=== PATIENT | female | born 1950 | race Caucasian/White ===

== ENCOUNTER 2023-10-06 18:02 | Emergency (ER) | payer MEDICARE, SELFPAY ==
[2023-10-06 18:04] VITALS: BP 155/61; PULSE 93; RESP 20; TEMP 36.6; O2SAT 98; BMI 19.0
[2023-10-06 19:00] LABS: COVID-19 Test Positive (Negative); IDNOW Serial# BCCEAD1C
[2023-10-06 19:49] VITALS: BP 142/54; PULSE 87; RESP 16; TEMP 36.7; O2SAT 99
[2023-10-06 19:58] LABS: MANUAL DIFF FLAG NO
[2023-10-06 20:00] LABS: Basophils Absolute Auto 0.1 X10*3/uL (0.0-0.2); Basophils Percent Auto 0.9 % (0-2); Eosinophils Percent Auto 0.1 % (0-4); Imm Gran Abs Auto 0.01 X10*3/uL (0.00-0.03); Imm Gran Pct Auto 0.1 % (0.0-0.4); Lymphocytes Absolute Auto 2.1 X10*3/uL (1.2-4.9); Lymphocytes Percent Auto 30.9 % (20-40); Mean Corpuscular HGB Conc 34.3 g/dl (31.0-35.0); Mean Corpuscular Hemoglobin 32.5 pg (27.0-33.0); Mean Corpuscular Volume 94.9 fL (80.0-98.0); Mean Platelet Volume 10.8 fL (9.4-12.3); Monocytes Absolute Auto 0.8 X10*3/uL (0.1-1.2); Monocytes Percent Auto 12.2 % (2-11); Neutrophils Absolute Auto 3.8 x10*3/uL (2.0-8.3); Neutrophils Percent Auto 55.8 % (45-73); Platelet Count 167 X10*3/uL (160-400); Red Blood Count 3.69 X10*6/uL (4.20-5.50); Red Cell Distribution Width 14.6 % (11.0-16.0); White Blood Count 6.9 X10*3/uL (4.8-10.8)
[2023-10-06 20:14] LABS: Alanine Aminotransferase 19 U/L (0-31); Albumin Level 3.7 g/dL (3.5-5.0); Alkaline Phosphatase 67 U/L (39-117); Anion Gap 17 (12-20); Aspartate Amino Transferase 29 U/L (5-31); Bilirubin Total 0.9 mg/dL (0.0-1.0); Blood Urea Nitrogen 40 mg/dL (9-16); Calcium 9.3 mg/dL (8.4-10.2); Carbon Dioxide 19 mmol/L (22-29); Chloride 109 mmol/L (96-108); Creatinine Clr Calc Pharmacy 37.2; Estimated Glomerular Filt Rate 46; Glucose Random 87 mg/dL (60-115); Potassium 4.2 mmol/L (3.3-5.1); Sodium 141 mmol/L (135-145); Total Protein 7.7 g/dL (6.5-8.0)
--- NOTE | 2023-10-06 21:13 | ED.GENADULT ---
HPI - General Adult General Chief complaint: General Medical Stated complaint: dementia/ multi Time Seen by Provider: 10/06/23 18:25 Source: family and other Mode of arrival: ambulatory History of Present Illness HPI narrative: This is a 73-year-old female with known at dementia, cared for by her who is currently being seen by case management for short-term rehab placement and is noted be COVID-19 positive. The staff in the overflow Section was concerned that patient would not be able to care for herself at home. Related Data Allergies Allergy/AdvReac Type Severity Reaction Status Date / Time No Known Allergies Allergy Unverified 07/04/20 15:24 [No Known Allergies*] Review of Systems Review of Systems: Pertinent positives and negatives as stated in HPI, this is not provided by the patient. [facility] Past Medical History Source: nursing notes reviewed Social History Social History Smoked in Last 30 Days: No Use of substances other than those prescribed or required for medical reasons: No Advance Directives: No Advance Directives Information Provided: No Physical Exam ED Vital Signs: Vital Signs - 24 hr 10/06/23 18:04 10/06/23 19:49 10/06/23 22:34 Temperature 98 F 98.1 F 97.5 F Pulse Rate 93 87 135 H Respiratory Rate 20 16 18 Blood Pressure 155/61 H 142/54 H 150/78 H Pulse Oximetry 98 99 100 Oxygen Delivery Method Room Air Room Air Room Air BMI result Body Mass Index 19.0 VITAL SIGNS: Reviewed. GENERAL: Well developed, well nourished, in no acute distress. HEAD: Normocephalic/atraumatic EYES: PERRLA, EOMI EARS: Ext canals without abnormality NOSE: Nares patent bilateral OROPHARYNX: no oral lesions noted, posterior pharynx clear NECK: Supple, no adenopathy LUNGS: Normal breath sounds. No adventitious sounds or accessory muscle use. SpO2<100> CARDIOVASCULAR: Regular rate and rhythm without noted murmurs ABDOMEN: Soft, non-tender, non-distended with bowel sounds. MUSCULOSKELETAL: No tenderness, deformities, or effusions noted on gross inspection. EXTREMITIES: No cyanosis, clubbing or edema. SKIN: Inspection of the skin reveals no rashes NEUROLOGIC: Alert and strength and sensation to light touch were grossly intact x 4. Medical Decision Making Medical Decision Making [facility] Narrative: 73-year-old female with no complaints, I reviewed all investigations and hematologic indices are negative for leukocytosis or left shift, there is no anemia or thrombocytopenia. Chemistry indices do not demonstrated MINDA your electrolytes/liver enzyme derangements. Patient is noted be COVID-19 positive. Patient has no urinary complaints. I discussed case with Case Management who informs me that previously this patient's partner had been slotted for short-term rehabilitation, however he is now going to be discharged home with home physical therapy but this will be completed tomorrow. There are no acute medical issues identified in this patient and she is otherwise placed in physician observation and will be discharged at the time that her significant other is discharged tomorrow. He is her primary care provider and is COVID-19 positive as well. Patient placed in physician observation because the patient needed more time for discharge with significant other. At the time observation was started the patient's vital signs were stable, patient is alert and oriented, neuro: Nonfocal, CV RRR, lungs clear Differential Diagnosis Differential Diagnoses: The differential diagnosis associated with the presentation includes Please see the discussion above Admission/Observation Consideration of admission/observation: Escalation of care including admission/observation considered Please see the discussion above Lab Data [facility] Lab Attestation statement: I reviewed the patient's lab results. Please see the discussion above 10/06/23 19:55 10/06/23 19:55 Labs: Lab Results 10/06/23 10/06/23 Range/Units 18:46 19:55 WBC 6.9 (4.8-10.8) X10*3/uL RBC 3.69 L (4.20-5.50) X10*6/uL Hgb 12.0 (12.0-16.0) g/dl Hct 35.0 L (37.0-47.0) % MCV 94.9 (80.0-98.0) fL MCH 32.5 (27.0-33.0) pg MCHC 34.3 (31.0-35.0) g/dl RDW 14.6 (11.0-16.0) % Plt Count 167 (160-400) X10*3/uL MPV 10.8 (9.4-12.3) fL Immature Gran % (Auto) 0.1 (0.0-0.4) % Neut % (Auto) 55.8 (45-73) % Lymph % (Auto) 30.9 (20-40) % [place] % (Auto) 12.2 H (2-11) % Eos % (Auto) 0.1 (0-4) % Baso % (Auto) 0.9 (0-2) % Lymph # (Auto) 2.1 (1.2-4.9) X10*3/uL [place] # (Auto) 0.8 (0.1-1.2) X10*3/uL Eos # (Auto) 0.0 (0.0-0.4) X10*3/uL Baso # (Auto) 0.1 (0.0-0.2) X10*3/uL Abs Immat Gran (auto) 0.01 (0.00-0.03) X10*3/uL Absolute Neuts (auto) 3.8 (2.0-8.3) x10*3/uL Absolute Nucleated RBC 0.000 (0.0-0.012) X10*3/uL Nucleated RBC % (auto) 0.0 (0.0-0.2) /100WBC Sodium 141 (135-145) mmol/L Potassium 4.2 (3.3-5.1) mmol/L Chloride 109 H (96-108) mmol/L Carbon Dioxide 19 L (22-29) mmol/L Anion Gap 17 (12-20) BUN 40 H (9-16) mg/dL Creatinine 1.15 (0.5-1.4) mg/dL Estim Creat Clear Calc 37.2 Estimated GFR 46 Random Glucose 87 (60-115) mg/dL Calcium 9.3 (8.4-10.2) mg/dL Total Bilirubin 0.9 (0.0-1.0) mg/dL AST 29 (5-31) U/L ALT 19 (0-31) U/L Alkaline Phosphatase 67 (39-117) U/L Total Protein 7.7 (6.5-8.0) g/dL Albumin 3.7 (3.5-5.0) g/dL COVID-19 (ELIAZAR) Positive A (Negative) COVID-19 Clin Com See Note Chronic Conditions Patient?s care impacted by: Other Dementia Discharge Plan Discharge Clinical Impression: Viral syndrome, Lab test positive for detection of COVID-19 virus Patient Disposition: Still a Patient
[2023-10-06 22:34] VITALS: BP 150/78; PULSE 135; RESP 18; TEMP 36.4; O2SAT 100
--- NOTE | 2023-10-06 23:12 | PC.NURSE ---
Patient is alert and oriented x2. Patient denies any pain. VSS. Patient COVID +, asymptomatic. Patient is incontinent of urine, purewick in place. 1:1 sitter and camera monitor at bedside. Patient is calm, cooperative. Patient resting comfortably, in no acute distress.
[2023-10-07 01:24] VITALS: BP 164/96; PULSE 87; RESP 16; TEMP 36.5; O2SAT 98
[2023-10-07 05:37] VITALS: BP 126/45; PULSE 77; RESP 16; TEMP 36.5; O2SAT 99
[2023-10-07 08:34] VITALS: BP 120/50; PULSE 71; RESP 20
--- NOTE | 2023-10-07 08:45 | PC.NURSE ---
assumed care of this pt at 0700. pt awake at the time of assuming care. pt not able to answer assessment questions. pt was fed breakfast by this check writer, she ate 50% of breakfast. pt pulled up in bed and warm blanket given. vss.
[2023-10-07 08:50] LABS: Appearance Urine Clear; Color Urine Yellow; Glucose Urine UA Negative (Negative); Leukocyte Esterase Urine Moderate (2+) (Negative); Nitrite Urine Negative (Negative); PH 5.5 (5.0-9.0); UMIC TRIGGER UACC YES; Urine Blood Negative (Negative); Urine Ketones 40 mg/dL (Negative); Urine Protein Trace mg/dL (Neg-Trace)
[2023-10-07 08:53] LABS: Bacteria Urine None Seen (None Seen); Hyaline Casts Urine 0-2 /LPF (0-2); RBC Urine 0-2 /HPF (0-2); Squamous Epithelial Cell Urine 0-2 /HPF (0-2); UACC Culture Trigger YES; WBC Urine 21-50 /HPF (0-5)
--- NOTE | 2023-10-07 12:56 | MHC.CM.ED ---
Received case management consult overnight. Patient was brought to the ER from ER overflow. Patient's sig other, Alejandro is an overflow patient. Patient has a history of dementia. Patient was not able to safely return home last night. Patient's sig other will return home with [facility] via BLS at 1pm. Patient will transport home via BLS at 130pm. Patient, Hernandez Allen RN and Delaney HYDE aware. Continue to monitor for d/c needs.
== END 2023-10-07 14:01 | disposition home or self-care (01) ==
PROVIDERS: Emergency Provider Student in an Organized Health Care Education/Training Program; PCP Internal Medicine
DX: U07.1 COVID-19 (principal); F03.90 Unspecified dementia, unspecified severity, without behavioral disturbance, psychotic disturbance, mood disturbance, and anxiety; Z79.899 Other long term (current) drug therapy
CPT/HCPCS: 36415; 80053; 81001; 85025; 87086; 87635; 99284

== ENCOUNTER 2023-10-07 14:40 | Emergency (ER) | payer MEDICARE, SELFPAY ==
[2023-10-07 15:18] VITALS: BMI 19.5
--- NOTE | 2023-10-07 15:46 | PC.NURSE ---
Patient returned to ED via ems after felt it was unsafe to leave patient and her significant other who was also being discharged from overflow at home. Per ems there was about 18 steps needed to get patient inside. Camera placed for safety. Patient yelling out occasionally, able to be re-directed for short periods of time
--- NOTE | 2023-10-07 16:19 | MHC.CM.ED ---
Patient was in ER and d/c'd home via [facility]. EMS didn't feel patient was safe at home with sig Alejandro garcia, because patient has advanced dementia and Alejandro is grossly deconditioned d/t Covid. Patient returned to ER from EMS crew. After discussing with Carter Romeor liaison, Cindy Johnson CM direct, patient and sig Alejandro garcia, patient will return home via [place] [facility] at 6pm. Patient, Gloria Allen RN and Delaney HYDE aware. Continue to monitor for d/c needs.
--- NOTE | 2023-10-07 16:46 | ED.GENADULT ---
HPI - General Adult General Chief complaint: General Medical Stated complaint: RETURN BY EMS FROM RECENT D/C TO HOME PER EMS Time Seen by Provider: 10/07/23 16:22 Source: patient, RN notes reviewed and old records reviewed Mode of arrival: EMS History of Present Illness HPI narrative: 73-year-old female presents for evaluation of of weakness. Patient is essentially bed-bound. She was just discharged from this facility a few hours ago. She is known to be COVID positive She lives with her significant other with her primary caregiver The patient and her primary caregiver collectively declined consideration for rehab as it was felt by staff and Case Management the patient and safe to be home by themselves Some degree of confusion but her primary caregiver has capacity to make decisions He understands that that may not be the safest at home especially while they are COVID positive but declines additional services including rehab placement and they do not meet criteria for admission The patient has no complaints and wishes to go home Related Data Home Medications Medication Instructions Recorded Confirmed clonazepam 0.5 mg tablet 0.5 mg PO DAILY 10/07/23 10/07/23 fluticasone propionate 50 2 spray intranasal DAILY 10/07/23 10/07/23 mcg/actuation nasal spray,suspension levothyroxine 75 mcg tablet 75 mcg PO DAILY 10/07/23 10/07/23 trihexyphenidyl 2 mg tablet 1 mg PO BID 10/07/23 10/07/23 Allergies Allergy/AdvReac Type Severity Reaction Status Date / Time No Known Allergies Allergy Unverified 07/04/20 15:24 [No Known Allergies*] Review of Systems Constitutional: Constitutional: Denies chills, Denies fever(s) and Reports weakness Cardiovascular: Cardiovascular: Denies chest pain and Denies dyspnea Respiratory: Respiratory: Denies cough and Denies dyspnea Gastrointestinal: Gastrointestinal: Denies abdominal pain, Denies nausea and Denies vomiting Musculoskeletal: Musculoskeletal: Denies back pain Integumentary/Breasts: Skin/Breast: Denies rash Neurologic: Reports weakness PMFSH Social History Social History Smoked in Last 30 Days: No Advance Directives: No Advance Directives Information Provided: No Physical Exam ED Vital Signs: BMI result Body Mass Index 19.5 Const General: comfortable, no acute distress, alert and awake HENMT Head: Yes normocephalic and Yes atraumatic Eyes Eyelids: Yes eyelids normal Conjunctivae: conjunctivae normal Sclerae: sclerae normal Corneas: corneas normal Pupils: Equal, round and reactive pupils present EOM: EOMs intact bilaterally Neck Neck: Yes full ROM Resp Effort & Inspection: normal respiratory effort, able to speak in complete sentences and not labored Cardio Rate: regular rate Rhythm: regular rhythm GI Inspection: No distended Palpation (GI): Soft to palpation, not firm, nontender, no guarding and not rigid Skin General skin exam: no rashes or lesions noted and elasticity normal Neuro Cranial nerves: Yes Equal, round and reactive pupils present and Yes Bilaterally intact EOM present Extrem Other: Moving all extremities well without any obvious deformities Medical Decision Making Medical Decision Making MDM Narrative: Patient is hemodynamically stable. I had a lengthy discussion with Case Management, the patient and her significant other. Case management filed for elder services due to unsafe living conditions and was able to establish visiting nurse assistance. However, the patient does not meet criteria for admission. Her caregiver and her declining rehab consideration. They both understand that they may not do well a Hohmann will likely require additional services but would still like to be discharged any ways. The patient's who is a primary caregiver will be brought back to their house 1st so that he will be there for the patient when she arrives Differential Diagnosis Differential Diagnoses: The differential diagnosis associated with the presentation includes Failure to thrive COVID-19 Weakness deconditioning Discharge Plan Discharge Clinical Impression: COVID-19, Adult failure to thrive Patient Disposition: Home, Self-Care Instructions: Failure to Thrive in Older Adults (ED), COVID-19 (Coronavirus Disease 2019) (ED) Additional Instructions: You and your primary caregiver declined consideration for rehab If you require any additional services are do not feel safe at home, call 911 to return to emergency department Prescriptions: No Action clonazepam 0.5 mg tablet 0.5 mg PO DAILY levothyroxine 75 mcg tablet 75 mcg PO DAILY trihexyphenidyl 2 mg tablet 1 mg PO BID fluticasone propionate 50 mcg/actuation spray,suspension 2 spray intranasal DAILY
[2023-10-07 18:00] VITALS: BP 134/66; PULSE 88; RESP 20; TEMP 37.1; O2SAT 97
== END 2023-10-07 18:17 | disposition home or self-care (01) ==
PROVIDERS: Emergency Provider Internal Medicine; PCP Internal Medicine
DX: U07.1 COVID-19 (principal); R62.7 Adult failure to thrive; Z79.899 Other long term (current) drug therapy
CPT/HCPCS: 99282; 99284

== ENCOUNTER 2023-10-08 12:26 | Inpatient (IN) | payer MEDICARE, SELFPAY ==
--- NOTE | ~2023-10-08 | XR_ITS ---
EXAMINATION: XR CHEST CLINICAL INFORMATION: AMS. COMPARISON: None available. TECHNIQUE: Frontal view of the chest was obtained. FINDINGS: The lungs are well-expanded with increased interstitial markings in both lungs without acute consolidation or pleural effusion. There are small left upper lobe 4 mm two nodules similar to previous study. Suspect additional smaller pulmonary nodules. XR/XR chest 1V IMPRESSION: 1. Increased interstitial markings in both lungs without acute consolidation or pleural effusion. 2. Small left upper lobe nodules. Recommend CT correlation.
--- NOTE | ~2023-10-08 | CT_ITS ---
EXAMINATION: CT brain and CT cervical spine without contrast. CLINICAL INDICATIONS: Fall. COMPARISON: CT brain without contrast 03/31/2017. TECHNIQUE: Axial 5 mm thin and reformatted 2 mm thin sagittal and coronal images of brain were obtained without contrast. Subsequently axial 3 mm thin and reformatted 2 mm thin sagittal and coronal images of cervical spine were obtained. DLP [id number]. This CT examination was performed using dose optimization technique as appropriate, variously including the following: Automated exposure control Adjustment of MA and/or KV according to patient size(this includes techniques or standardized protocols for targeted exams where dose is matched to indication/reason for exam; extremities or head. Use of iterative reconstruction techniques. Brain: There is no acute intra-axial, extra-axial bleed, masses or midline shift. There is no acute infarction in evolution. There is no edema or mass effect. The lateral ventricles are symmetrical in size and configuration without enlargement. The lima to white matter differentiation is maintained normal. Bone windows reveal no calvarial abnormality. There is mild mucoperiosteal thickening in bilateral sphenoid sinuses. Cervical spine: There is normal cervical lordosis. The vertebral heights are normal. There is minimal grade 1 retrolisthesis C3 over C4. Rest of the vertebral alignment is normal There is loss of C3-C4, C4-C5 disc height with mild ventral and posterior spondylosis. No aggressive lytic or sclerotic process seen. The craniovertebral junction and the C1-C2 alignment is normal. There is no visible acute fracture, dislocation or subluxation. The prevertebral and paravertebral soft tissues are normal. There is punctate calcification in the left lingular tonsils with minimal enlargement. No abnormal size neck lymph nodes or mass seen. The airways widely patent. There is mild left hematocele lung apices with apical pleural thickening.. CT/CT cervical spine wo IV con IMPRESSION: 1. No acute intracranial process seen. 2. There is no acute fracture, dislocation or subluxation in cervical spine. There are degenerative disc changes C3-C4 and C4-C5 disc levels with ventral and posterior spondylosis.
--- NOTE | 2023-10-08 12:38 | ED.GENADULT ---
HPI - General Adult General Chief complaint: Altered Mental Status Stated complaint: FOUND ON KITCHEN FLOOR, AMS Time Seen by Provider: 10/08/23 12:33 Source: patient, EMS, RN notes reviewed and old records reviewed Mode of arrival: EMS History of Present Illness HPI narrative: 73-year-old female with past medical history of dementia presenting to the ED via EMS for altered mental status since 21:00 last night reported by . Patient was seen and treated in our ED on 10/06 and 10/07, COVID-19 positive, short-term rehab placement recommended both times however patient was discharged with yesterday per his request/STR refusal. Has been his caregiver. History obtained from patient's reports her words making incomprehensible and she was yelling/not making any sense. Has been denies reported falls. Related Data Home Medications Medication Instructions Recorded Confirmed clonazepam 0.5 mg tablet 0.25 mg PO BID 10/07/23 10/08/23 fluticasone propionate 50 2 spray intranasal DAILY 10/07/23 10/08/23 mcg/actuation nasal spray,suspension levothyroxine 75 mcg tablet 75 mcg PO DAILY 10/07/23 10/08/23 trihexyphenidyl 2 mg tablet 1 mg PO BID 10/07/23 10/08/23 Allergies Allergy/AdvReac Type Severity Reaction Status Date / Time No Known Allergies Allergy Verified 10/08/23 12:40 [No Known Allergies*] Review of Systems Review of Systems: ROS limited due to patient's acute mental status/baseline dementia Yes all other systems are reviewed and are negative Constitutional: Constitutional: Reports as per [facility] Past Medical History Attestation statement: The following information was validated with the patient. Source: old records reviewed Social History Social History Unable to assess alcohol history related to: Unknown Use of substances other than those prescribed or required for medical reasons: Unable to respond Advance Directives: No Advance Directives Information Provided: No Physical Exam ED Vital Signs: Vital Signs - 24 hr 10/13/23 15:00 10/13/23 15:00 10/13/23 23:14 Temperature 98 F Pulse Rate 80 98 Respiratory Rate 16 14 Blood Pressure 124/57 L 146/68 H Pulse Oximetry 92 97 Oxygen Delivery Method Room Air Room Air 10/14/23 06:12 Temperature 97.4 F Pulse Rate 84 Respiratory Rate 16 Blood Pressure 140/66 H Pulse Oximetry 97 Oxygen Delivery Method Room Air BMI result Body Mass Index 20.5 Const Other: Yelling, not following commands General: no acute distress, alert and awake Limitations: altered mental status HENMT Head: Yes normal to inspection and Yes atraumatic Ears: hearing grossly normal bilaterally General nose exam: Normal external nose present Face and sinus: Yes normal facial exam Eyes General: appearance normal, both eyes and all related structures EOM: EOMs intact bilaterally Neck Other: C-collar in place Neck: Yes normal visual inspection and Yes no meningeal signs Resp Effort & Inspection: normal respiratory effort and no respiratory distress Auscultation: clear to auscultation bilaterally Cardio Rate: regular rate Heart sounds: S1 normal heart sound present and S2 normal heart sound present GI Inspection: Yes normal to inspection Palpation (GI): Soft to palpation, nontender, no guarding and not rigid General: Yes no CVA tenderness Back/Spine/Pelvis Other: No midline cervical/thoracic/lumbar spinous tenderness/step-off or deformity Back: no CVA tenderness Skin Rashes: no rashes Wounds: no wounds Neuro General: tone normal and no meningeal signs Course Course Course Narrative: -1351--no leukocytosis. H&H stable. AST mildly elevated. CPK mildly elevated to 764 > 1L IVF ordered. -Troponin 5.8 >> will obtain 3 hour repeat -UA negative. COVID-19 positive -1532--repeat troponin without significant rise, NC unlikely CT head/brain wo IV con/CT cervical spine wo IV con IMPRESSION: 1. No acute intracranial process seen. 2. There is no acute fracture, dislocation or subluxation in cervical spine. There are degenerative disc changes C3-C4 and C4-C5 disc levels with ventral and posterior spondylosis. > C-collar cleared. Case management aware and psych consult placed for capacity. -1625--ED care transferred to MARY ELLEN Srinivasan pending CXR, ammonia, psych consult for capacity and case management Reevaluation(s) Reevaluation #1: Patient was given to me through sign out, pending chest x-ray, ammonia, psych consult for capacity and Case Management dispo. Ammonia normal chest x-ray showing increased interstitial markings in both lungs without acute consolidation or pleural effusion. There is a small left upper lobe nodules. Patient is medically cleared, pending psych consult for capacity and Case Management. Patient moved to overflow unit pending their dispo. Time: 22:57 Reevaluation #2: Patient has case management involved. She is COVID positive. She has no hypoxia and is not requiring supplemental oxygen. Patient does not have capacity. She does not have a healthcare proxy. Guardianship is going to need to be pursued per Case Management. Elder Services is also involved with this patient. Will continue physician observation pending disposition Reevaluation #3: 10/10 0749-per nursing patient has been intermittently agitated. Did require IM injection last night as she refused to take any oral medications and did not respond to redirection. Nursing will attempt to give her her morning medications today. Vital stable. No additional complaints from nursing overnight. Will continue physician observation pending disposition 10/11/2023 - physician observation continued. I was notified by nursing staff that patient has been pulling at cords on ureña, refusing to take all medications. I evaluated patient, she is lying in bed, without any clothes on, yelling, telling me to leave the room, she is not redirectable, and has been refusing taking any of her medications. Given agitation and not being able to be redirected and pulling at medical equipment, Zyprexa 5 mg IM ordered. 10/13/2023 - Physician observation continues. Patient being followed by Case management. Additional Reevaluation(s): Patient to remain in observation. Uneventful night. Meds reconciled. Will continue to monitor. Spoke to Marylin Arreguin who tells me we have started guardianship on this patient she will be here for 4-6 weeks at least, she has been COVID positive x2 while here, however asymptomatic, advocating for hospital admission and for the hospitalist to take over this patient she discussed this with administration who agrees. Physical deconditioning. Will speak to hospitalist Medications Administered Generic Name Dose Route Start Last Admin Trade Name Freq PRN Reason Stop Dose Admin Clonazepam 0.25 mg 10/09/23 21:00 10/14/23 09:31 Clonazepam 0.5 Mg Tablet PO 0.25 mg BID LATISHA Administration Fluticasone Propionate 2 spray 10/10/23 09:00 10/14/23 10:19 Fluticasone Propionate Nasal 16 Gm [place] NOSTRIL-B Not Given DAILY LATISHA Levothyroxine Sodium 75 mcg 10/10/23 06:30 10/14/23 09:31 Levothyroxine Sodium 75 Mcg Tablet PO 75 mcg DAILY@0630 LATISHA Administration Trihexyphenidyl HCl 1 mg 10/09/23 21:00 10/14/23 11:34 Trihexyphenidyl Hcl 2 Mg Tablet PO 1 mg BID LATISHA Administration Discontinued Medications Generic Name Dose Route Start Last Admin Trade Name Robbie PRN Reason Stop Dose Admin Clonazepam 0.25 mg 10/13/23 00:47 10/13/23 01:11 Clonazepam 0.125 Mg Tab.Rapdis PO 10/13/23 00:48 0.25 mg ONCE ONE Administration Diphenhydramine HCl 50 mg 10/11/23 08:15 10/11/23 08:25 Diphenhydramine Hcl 50 Mg/Ml Vial IM 10/11/23 08:16 50 mg ONCE ONE Administration Diphenhydramine HCl 25 mg 10/11/23 22:44 10/11/23 23:00 Diphenhydramine Hcl 50 Mg/Ml Vial IM 10/11/23 22:45 Not Given ONCE ONE Diphenhydramine HCl 50 mg 10/13/23 02:55 10/13/23 03:06 Diphenhydramine Hcl 50 Mg/Ml Vial IM 10/13/23 02:56 50 mg ONCE ONE Administration Sodium Chloride 1,000 mls @ 999 mls/hr 10/08/23 14:00 10/08/23 16:11 Ns IV 10/08/23 15:00 Infused .Q1H1M LATISHA Infusion Olanzapine 5 mg 10/08/23 15:40 10/08/23 16:17 Olanzapine 10 Mg Vial IM 10/08/23 15:41 5 mg STAT STA Administration Olanzapine 5 mg 10/09/23 16:05 10/09/23 16:11 Olanzapine 10 Mg Vial IM 10/09/23 16:06 5 mg STAT STA Administration Olanzapine 5 mg 10/09/23 19:20 10/09/23 19:31 Olanzapine 10 Mg Vial IM 10/09/23 19:21 5 mg STAT STA Administration Olanzapine 5 mg 10/10/23 08:28 10/10/23 08:41 Olanzapine 10 Mg Vial IM 10/10/23 08:29 5 mg STAT STA Administration Olanzapine 5 mg 10/11/23 07:34 10/11/23 07:43 Olanzapine 10 Mg Vial IM 10/11/23 07:35 5 mg STAT STA Administration Olanzapine 5 mg 10/11/23 22:44 10/11/23 23:00 Olanzapine 10 Mg Vial IM 10/11/23 22:45 Not Given ONCE ONE Quetiapine Fumarate 25 mg 10/09/23 15:26 10/09/23 16:06 Quetiapine Fumarate 25 Mg Tablet PO 10/09/23 15:27 Not Given ONCE ONE Medical Decision Making Medical Decision Making MDM Narrative: 73-year-old female with past medical history of dementia presenting to the ED via EMS for altered mental status since 21:00 last night reported by . On exam vital signs stable, NAD, yelling, unable to follow commands, baseline dementia/altered mental status. No evidence of trauma. History limited and provided by . Concern for metabolic/infectious etiology vs ICH vs dementia/failure to thrive Plan: EKG, labs, UA, CXR, head/C-spine CT, case management consult Please refer to course for remaining clinical decision making, interpretation of labs/imaging results, and discussions with consultants and/or family members. Differential Diagnosis Differential Diagnoses: The differential diagnosis associated with the presentation includes As above Admission/Observation Consideration of admission/observation: Escalation of care including admission/observation considered Lab Data [facility] Lab Attestation statement: I reviewed the patient's lab results. 10/08/23 13:05 10/08/23 13:05 Labs: Lab Results 10/08/23 10/08/23 10/08/23 Range/Units 13:05 13:15 15:03 WBC 9.4 (4.8-10.8) X10*3/uL RBC 3.78 L (4.20-5.50) X10*6/uL Hgb 12.3 (12.0-16.0) g/dl Hct 35.9 L (37.0-47.0) % MCV 95.0 (80.0-98.0) fL MCH 32.5 (27.0-33.0) pg MCHC 34.3 (31.0-35.0) g/dl RDW 14.7 (11.0-16.0) % Plt Count 187 (160-400) X10*3/uL MPV 11.4 (9.4-12.3) fL Immature Gran % (Auto) 0.3 (0.0-0.4) % Neut % (Auto) 71.7 (45-73) % Lymph % (Auto) 18.3 L (20-40) % [place] % (Auto) 9.4 (2-11) % Eos % (Auto) 0.0 (0-4) % Baso % (Auto) 0.3 (0-2) % Lymph # (Auto) 1.7 (1.2-4.9) X10*3/uL [place] # (Auto) 0.9 (0.1-1.2) X10*3/uL Eos # (Auto) 0.0 (0.0-0.4) X10*3/uL Baso # (Auto) 0.0 (0.0-0.2) X10*3/uL Abs Immat Gran (auto) 0.03 (0.00-0.03) X10*3/uL Absolute Neuts (auto) 6.8 (2.0-8.3) x10*3/uL Absolute Nucleated RBC 0.000 (0.0-0.012) X10*3/uL Nucleated RBC % (auto) 0.0 (0.0-0.2) /100WBC PT 12.4 (11.1-13.3) SEC INR 1.0 (0.9-1.1) Sodium 145 (135-145) mmol/L Potassium 4.9 (3.3-5.1) mmol/L Chloride 111 H (96-108) mmol/L Carbon Dioxide 22 (22-29) mmol/L Anion Gap 17 (12-20) BUN 40 H (9-16) mg/dL Creatinine 1.22 (0.5-1.4) mg/dL Estim Creat Clear Calc 36.7 Estimated GFR 43 POC Glucose (60-115) mg/dL Random Glucose 97 (60-115) mg/dL Calcium 9.9 D (8.4-10.2) mg/dL Magnesium 2.5 (1.6-2.6) mg/dL Total Bilirubin 1.0 (0.0-1.0) mg/dL Direct Bilirubin 0.5 (0.0-0.5) mg/dL AST 53 H (5-31) U/L ALT 29 (0-31) U/L Alkaline Phosphatase 70 (39-117) U/L Ammonia (13-55) umol/L Total Creatine Kinase 764 H (26-140) U/L Troponin I High Sens 5.8 7.1 (<3.5-17.0) ng/L Total Protein 8.0 (6.5-8.0) g/dL Albumin 3.8 (3.5-5.0) g/dL Urine Color Dark Yellow Urine Appearance Clear Urine pH 5.0 (5.0-9.0) Ur Specific [place] 1.025 (1.005-1.025) Urine Protein 30 (1+) H (Neg-Trace) mg/dL Urine Glucose (UA) Negative (Negative) mg/dL Urine Ketones 15 (Negative) mg/dL Urine Blood Trace H (Negative) Urine Nitrite Negative (Negative) Ur Leukocyte Esterase Negative (Negative) Urine RBC 0-2 (0-2) /HPF Urine WBC 0-5 (0-5) /HPF Ur Squamous Epith Cells 0-2 (0-2) /HPF Urine Bacteria None Seen (None Seen) Hyaline Casts 11-20 (0-2) /LPF Granular Casts Present COVID-19 (ELIAZAR) Positive A (Negative) COVID-19 Clin Com See Note Influenza Type A (LORAINE) Negative (Negative) Influenza Type B (LORAINE) Negative (Negative) Influenza A & B Note See Note 10/08/23 10/12/23 Range/Units 16:17 17:34 WBC (4.8-10.8) X10*3/uL RBC (4.20-5.50) X10*6/uL Hgb (12.0-16.0) g/dl Hct (37.0-47.0) % MCV (80.0-98.0) fL MCH (27.0-33.0) pg MCHC (31.0-35.0) g/dl RDW (11.0-16.0) % Plt Count (160-400) X10*3/uL MPV (9.4-12.3) fL Immature Gran % (Auto) (0.0-0.4) % Neut % (Auto) (45-73) % Lymph % (Auto) (20-40) % [place] % (Auto) (2-11) % Eos % (Auto) (0-4) % Baso % (Auto) (0-2) % Lymph # (Auto) (1.2-4.9) X10*3/uL [place] # (Auto) (0.1-1.2) X10*3/uL Eos # (Auto) (0.0-0.4) X10*3/uL Baso # (Auto) (0.0-0.2) X10*3/uL Abs Immat Gran (auto) (0.00-0.03) X10*3/uL Absolute Neuts (auto) (2.0-8.3) x10*3/uL Absolute Nucleated RBC (0.0-0.012) X10*3/uL Nucleated RBC % (auto) (0.0-0.2) /100WBC PT (11.1-13.3) SEC INR (0.9-1.1) Sodium (135-145) mmol/L Potassium (3.3-5.1) mmol/L Chloride (96-108) mmol/L Carbon Dioxide (22-29) mmol/L Anion Gap (12-20) BUN (9-16) mg/dL Creatinine (0.5-1.4) mg/dL Estim Creat Clear Calc Estimated GFR POC Glucose 89 (60-115) mg/dL Random Glucose (60-115) mg/dL Calcium (8.4-10.2) mg/dL Magnesium (1.6-2.6) mg/dL Total Bilirubin (0.0-1.0) mg/dL Direct Bilirubin (0.0-0.5) mg/dL AST (5-31) U/L ALT (0-31) U/L Alkaline Phosphatase (39-117) U/L Ammonia 31 (13-55) umol/L Total Creatine Kinase (26-140) U/L Troponin I High Sens (<3.5-17.0) ng/L Total Protein (6.5-8.0) g/dL Albumin (3.5-5.0) g/dL Urine Color Urine Appearance Urine pH (5.0-9.0) Ur Specific [place] (1.005-1.025) Urine Protein (Neg-Trace) mg/dL Urine Glucose (UA) (Negative) mg/dL Urine Ketones (Negative) mg/dL Urine Blood (Negative) Urine Nitrite (Negative) Ur Leukocyte Esterase (Negative) Urine RBC (0-2) /HPF Urine WBC (0-5) /HPF Ur Squamous Epith Cells (0-2) /HPF Urine Bacteria (None Seen) Hyaline Casts (0-2) /LPF Granular Casts COVID-19 (ELIAZAR) (Negative) COVID-19 Clin Com Influenza Type A (LORAINE) (Negative) Influenza Type B (LORAINE) (Negative) Influenza A & B Note Independent Interpretation I performed an independent interpretation of an: EKG, Plain X-Ray and CT Scan Radiology Impression Discussion of test interpretation with radiology: I have reviewed the radiologist's reading. Independent Historian Clinical information obtained from an independent historian. History obtained from or confirmed by: Spouse and EMS External Record Review External record reviewed: Inpatient record, Office record, Outpatient record, Prior outpatient labs, Prior outpatient radiology, Primary care record and Outside ED record Tests considered The following testing was considered but not selected: As above Chronic Conditions Patient?s care impacted by: Other Social Determinants Patient?s care significantly limited by Social Determinants of Health including: Problems related to primary support group and Other Social Determinant of Health Discharge Plan Discharge Clinical Impression: Dementia, Adult failure to thrive, COVID-19 Patient Disposition: Still a Patient Prescriptions: No Action clonazepam 0.5 mg tablet 0.25 mg PO BID levothyroxine 75 mcg tablet 75 mcg PO DAILY trihexyphenidyl 2 mg tablet 1 mg PO BID fluticasone propionate 50 mcg/actuation spray,suspension 2 spray intranasal DAILY
[2023-10-08 12:40] VITALS: BP 102/56; PULSE 83; O2SAT 99; BMI 20.5
--- NOTE | 2023-10-08 12:47 | ECG_ITS ---
Test Reason : AMS Blood Pressure : / mmHG Vent. Rate : 073 BPM Atrial Rate : 073 BPM P-R Int : 132 ms QRS Dur : 070 ms QT Int : 378 ms P-R-T Axes : 082 033 -08 degrees QTc Int : 416 ms Poor data quality Normal sinus rhythm Nonspecific ST abnormality Abnormal ECG No previous ECGs available Please repeat EKG Referred By: Verena Carver Electronically Signed By:MASAH VARMA MD
--- NOTE | 2023-10-08 12:53 | PC.NURSE ---
pt biba d/t AMS since 0900. per pt's - pt saw herself lower her to the ground. -headstrike, -loc, ?thinners. c-collar in place. pt unable to answer questions appropriately but follows commands w/o difficulty. no sob/wob noted. respirations even/unlabored. call lee placed within reach.
[2023-10-08 12:59] VITALS: BP 151/60; PULSE 83; RESP 18; O2SAT 93
--- NOTE | 2023-10-08 13:00 | PC.NURSE ---
straight catheterization performed. urine obtained and sent to lab. 100ml of dark yellow urine noted/documented in I&O section. pt tolerated well.
--- NOTE | 2023-10-08 13:05 | PC.NURSE ---
20gIV placed in the left AC - labs drawn and sent to lab. access wrapped for safety precautions at this time.
[2023-10-08 13:22] LABS: MANUAL DIFF FLAG NO
[2023-10-08 13:25] LABS: Basophils Percent Auto 0.3 % (0-2); Hematocrit 35.9 % (37.0-47.0); Hemoglobin 12.3 g/dl (12.0-16.0); Imm Gran Abs Auto 0.03 X10*3/uL (0.00-0.03); Imm Gran Pct Auto 0.3 % (0.0-0.4); Lymphocytes Absolute Auto 1.7 X10*3/uL (1.2-4.9); Lymphocytes Percent Auto 18.3 % (20-40); Mean Corpuscular HGB Conc 34.3 g/dl (31.0-35.0); Mean Corpuscular Hemoglobin 32.5 pg (27.0-33.0); Mean Platelet Volume 11.4 fL (9.4-12.3); Monocytes Absolute Auto 0.9 X10*3/uL (0.1-1.2); Monocytes Percent Auto 9.4 % (2-11); Neutrophils Absolute Auto 6.8 x10*3/uL (2.0-8.3); Neutrophils Percent Auto 71.7 % (45-73); Platelet Count 187 X10*3/uL (160-400); Red Blood Count 3.78 X10*6/uL (4.20-5.50); Red Cell Distribution Width 14.7 % (11.0-16.0); White Blood Count 9.4 X10*3/uL (4.8-10.8)
[2023-10-08 13:25] LABS: Appearance Urine Clear; Color Urine Dark Yellow; Glucose Urine UA Negative (Negative); Leukocyte Esterase Urine Negative (Negative); Nitrite Urine Negative (Negative); Specific Gravity - Urine 1.025 (1.005-1.025); UMIC TRIGGER UACC YES; Urine Blood Trace (Negative); Urine Ketones 15 mg/dL (Negative); Urine Protein 30 (1+) mg/dL (Neg-Trace)
[2023-10-08 13:39] LABS: Alanine Aminotransferase 29 U/L (0-31); Albumin Level 3.8 g/dL (3.5-5.0); Alkaline Phosphatase 70 U/L (39-117); Anion Gap 17 (12-20); Aspartate Amino Transferase 53 U/L (5-31); Bilirubin Direct 0.5 mg/dL (0.0-0.5); Blood Urea Nitrogen 40 mg/dL (9-16); Calcium 9.9 mg/dL (8.4-10.2); Carbon Dioxide 22 mmol/L (22-29); Chloride 111 mmol/L (96-108); Creatinine Clr Calc Pharmacy 36.7; Estimated Glomerular Filt Rate 43; Glucose Random 97 mg/dL (60-115); Magnesium 2.5 mg/dL (1.6-2.6); Potassium 4.9 mmol/L (3.3-5.1); Sodium 145 mmol/L (135-145)
[2023-10-08 13:40] LABS: IDNOW Serial# BCCEAD1C
--- NOTE | 2023-10-08 13:40 | PC.NURSE ---
pt to xray at this time.
[2023-10-08 13:41] LABS: COVID-19 Test Positive (Negative); Prothrombin Time 12.4 SEC (11.1-13.3)
[2023-10-08 13:43] LABS: Bacteria Urine None Seen (None Seen); Granular Casts Urine Present; RBC Urine 0-2 /HPF (0-2); Squamous Epithelial Cell Urine 0-2 /HPF (0-2); WBC Urine 0-5 /HPF (0-5)
[2023-10-08 13:46] LABS: IDNOW Serial# 9DB6401D; Influenza A Negative (Negative); Influenza B2 Negative (Negative); Troponin-I High Sensitivity 5.8 ng/L (<3.5-17.0)
--- NOTE | 2023-10-08 14:07 | MHC.CM.ED ---
Addendum entered by Jannet Sen 10/08/23 14:17: Received telephone call from Cindy Johnson CM director. Per Supervisor [employer] Testing Cindy Catalan, patient does not hava a HCP. If patient is found not to have capacity, a guardianship will need to be pursued. Original Note: Received telephone call from [facility] of [facility] services. They are requesting a capacity eval for patient. They also don't feel patient's sig other, Alejandro Johnson, is making decisions that benefit her. Work up is currently pending. Continue to monitor for d/c needs.
[2023-10-08] MEDS: 0.9 % Sodium Chloride 1,000 ML 999 ML IV (14:15)
--- NOTE | 2023-10-08 14:16 | PC.NURSE ---
IV fluids administered per provider order. pt resting comfortably in no apparent distress. respirations remain even/unlabored. call lee placed within reach.
[2023-10-08 14:26] VITALS: BP 106/60; PULSE 77; RESP 12; O2SAT 99
[2023-10-08 15:30] LABS: Troponin-I High Sensitivity 7.1 ng/L (<3.5-17.0)
[2023-10-08 16:00] VITALS: BP 149/64; PULSE 80; RESP 16; TEMP 36.5; O2SAT 100
[2023-10-08] MEDS: OLANZapine 10 MG VIAL 5 MG IM (16:17)
[2023-10-08 16:33] LABS: Ammonia 31 umol/L (13-55)
--- NOTE | 2023-10-08 16:37 | PHA.MEDREC ---
Pharmacy Consult ? Medication Reconciliation Pharmacy has completed the medication reconciliation. Patient with AMS. Med rec done by claim history. David SchmittD
[2023-10-08 18:00] VITALS: RESP 22; O2SAT 98
--- NOTE | 2023-10-08 18:32 | PC.NURSE ---
Patient transferred from main ed to overflow, patient continually yelling hot car hot car unable to be re-directed for even short periods of time.
[2023-10-08 20:22] VITALS: BP 122/62; PULSE 88; RESP 18; TEMP 36.3; O2SAT 97
--- NOTE | 2023-10-09 03:10 | PC.NURSE ---
resting comf,denies pain,.no resp distress,purewick in place
[2023-10-09 06:00] VITALS: BP 118/60; PULSE 62; RESP 18; TEMP 37.1; O2SAT 95
--- NOTE | 2023-10-09 10:51 | PC.NURSE ---
Addendum entered by Vijaya Puentes RN 10/09/23 17:47: pt refused lunch and dinner, agitation increasing throughout day, refusing clothing and blankets. Provider notified of increased agitation and new orders for medication administered per MAR with good effect. incontinence care provided x2. safety precautions remain in place Original Note: report received from overnight RN, pt restless in bed speaking/yelling nonsensical things to self. Refusing breakfast, not redirectable at this time, not following commands. bed alarm on, call lee within reach, safety precautions remain in place. Airborne precautions in place. respirations even and unlabored.
--- NOTE | 2023-10-09 15:51 | MHC.CM.ED ---
Pt yelling out almost continuously-talking out loud, angry at times and not able to be redirected. Review of notes mentions [facility] involvement, no HCP and +COVID. Pt's significant other is holding in the ED as well w/COVID. Pt does not see to have other family involved. Pt will likely need guardianship for LTC placement. This will occur after the holiday and pt will hold in the ED as she does not have a safe disposition at this time. ED CM to follow.
[2023-10-09] MEDS: OLANZapine 10 MG VIAL 5 MG IM ×2 (16:11→19:31)
--- NOTE | 2023-10-09 16:19 | MHC.EDTECH ---
This CCT went to round on patient. Purewick had become dislodged due to agitation and restlessness. Patient was cleaned by RN and this CCT and assisted into a brief. Patient repositioned, offered food. Patient declined food and RN performed oral care. Lights dimmed, noise minimized, call lee within reach, safety measures maintained.
[2023-10-09 19:18] VITALS: BP 168/87; PULSE 84; RESP 20; TEMP 36.5
--- NOTE | 2023-10-09 20:13 | PC.NURSE ---
Addendum entered by Ana Fontana RN 10/09/23 20:39: Noted good effect of Zyprexa, patient is napping at this time. Original Note: Patient very agitated, confused, yelling out very unpleasant islam words. Resistant to care, wants to lay naked. Zyprexa 5 mg IM one time dose ordered and given. Will continue to monitor.
--- NOTE | 2023-10-09 21:35 | PC.NURSE ---
this rn assumed care of pt. pt transported from Overflow to the main ED. pt refusing to wear hospital gown at this time, throwing blankets on the floor. pt appears to be confused. bed alarm on at this time.
--- NOTE | 2023-10-10 01:30 | PC.NURSE ---
pt covered with blanket at this time. pt sleeping, respirations even and unlabored.
--- NOTE | 2023-10-10 05:03 | PC.NURSE ---
pt sleeping at this time, no acute distress noted. respirations even and unlabored.
[2023-10-10 05:43] VITALS: BP 137/46; PULSE 74; RESP 16; TEMP 36.7; O2SAT 96
--- NOTE | 2023-10-10 06:45 | PC.NURSE ---
pt changed and repositioned in bed at this time.
[2023-10-10] MEDS: OLANZapine 10 MG VIAL 5 MG IM (08:41)
--- NOTE | 2023-10-10 08:42 | PC.NURSE ---
PT INCREASINGLY AGITATED, MAKING REPETITIVE STATEMENTS, PULLING OFF EVERYTHING IN HER BED THIS MORNING, AND ATTEMPTING EXIT THE BED HEAD FIRST. PRECAUTIONS IN PLACE, CAMERA PLACED AT BEDSIDE. MUCOUS MEMBRANES DRY. ATTEMPTS MADE TO DELIVER ORAL INTAKE, PT KNOCKING & SPITTING EVERYTHING OUT OF THE WAY. MULTIPLE UNSUCCESSFUL ATTEMPTS MADE TO REDUCE STIMULI & CALM THIS PT. MARKET DEVELOPMENT ANALYST AWARE, MEDICATED PER EMR & SITTER at bedside.
--- NOTE | 2023-10-10 09:10 | PC.NURSE ---
pt refusing medication administration at this time. pt laying naked in position making repetitive statements. pt agitated/restless but remains cooperative at this time. pt has not attempted to get out of bed at this time. camera placed/1:1 sitter bedside at this time for safety precautions.
--- NOTE | 2023-10-10 09:58 | PC.NURSE ---
pt continues to refuse medication administration at this time. will reattempt. pt continues to be restless/confused. making statements that are incoherent. camera placed. 1:1 sitter present. respirations even/unlabored. call lee placed within reach.
--- NOTE | 2023-10-10 11:03 | PC.NURSE ---
pt currently sleeping at this time. resting comfortably in no apparent distress. respirations remain even and unlabored. camera in place. 1:1 sitter bedside. call lee placed within reach.
--- NOTE | 2023-10-10 11:23 | MHC.CM.ED ---
Pt continues to board in the ED awaiting psych eval for capacity and possible need for guardianship. No HCP on file Pt is confused, agitated yelling out at times and not able to participate in CM questions/discussions. It is expected psych eval will occur on 10/12. Pt to board in the ED until d/c plan can be safely made. ED CM to follow.
--- NOTE | 2023-10-10 14:39 | PC.NURSE ---
pt continues to sleep/rest in no apparent distress at this time. respirations remain even and unlabored. bed alarm turned on. camera in place for safety precautions. call lee placed within reach.
--- NOTE | 2023-10-10 17:03 | PC.NURSE ---
pt now awake. pt still refusing vitals to be taken/medication to be administered/to put clothing on. pt continues to lay naked in bed - seemingly restless and making repetitive statements. pt continues to rip clothing and blankets off of her body. pt calm at this time. respirations remain even and unlabored. camera in place. bed alarm turned on for safety precautions. call lee placed within reach.
--- NOTE | 2023-10-10 21:00 | PC.NURSE ---
This ticket writer assumed care of this Pt at 1900. Pt confused, agitated, stating covid 19, get out, get out , not answering questions, swatting at staff when attempting to get vitals. Pt refusing to take PO meds, refusing any PO intake. Pt refusing any blanket/ gown, laying naked in hospital bed. Camera in place for safety.
--- NOTE | 2023-10-10 21:29 | P.CNPS_ITS ---
History of Present Illness Date of Service: 10/10/2023 Chief Complaint: FOUND ON KITCHEN FLOOR, AMS Reason for Consult: capacity HPI Narrative: per 10/08 ED Note: 73-year-old female with past medical history of dementia presenting to the ED via EMS for altered mental status since 21:00 last night reported by . Patient was seen and treated in our ED on 10/06 and 10/07, COVID-19 positive, short-term rehab placement recommended both times however patient was discharged with yesterday per his request/STR refusal. Has been his caregiver. History obtained from patient's reports her words making incomprehensible and she was yelling/not making any sense. Has been denies reported falls. Reevaluation #1: Patient was given to me through sign out, pending chest x-ray, ammonia, psych consult for capacity and Case Management dispo. Ammonia normal chest x-ray showing increased interstitial markings in both lungs without acute consolidation or pleural effusion. There is a small left upper lobe nodules. Patient is medically cleared, pending psych consult for capacity and Case Management. Patient moved to overflow unit pending their dispo. Time: 22:57 Reevaluation #2: Patient has case management involved. She is COVID positive. She has no hypoxia and is not requiring supplemental oxygen. Patient does not have capacity. She does not have a healthcare proxy. Guardianship is going to need to be pursued per Case Management. Elder Services is also involved with this patient. Will continue physician observation pending disposition Reevaluation #3: 10/10 0749-per nursing patient has been intermittently agitated. Did require IM injection last night as she refused to take any oral medications and did not respond to redirection. Nursing will attempt to give her her morning medications today. Vital stable. No additional complaints from nursing overnight. Will continue physician observation pending disposition on attempted interview by MD, pt was awake and responded to MD's questions by holding her blanket over her face with one hand and repeatedly making a warding off or waving away gesture with the other hand. this gesture lessened when MD was quiet and was more active any time MD spoke. she was unable to engage in an interview even after MD explained that the stakes of the interview was her autonomy. Diagnostics Vital Signs (24Hr): Vital Signs - 24 hr 10/10/23 05:43 Temperature 98.0 F Pulse Rate 74 Respiratory Rate 16 Blood Pressure 137/46 L Pulse Oximetry 96 Oxygen Delivery Method Room Air BMI result Body Mass Index 20.5 Labs 10/08/23 13:05 10/08/23 13:05 Imaging Radiology Impressions: ITS Impressions Cervical Spine CT 10/08/23 14:22 IMPRESSION: 1. No acute intracranial process seen. 2. There is no acute fracture, dislocation or subluxation in cervical spine. There are degenerative disc changes C3-C4 and C4-C5 disc levels with ventral and posterior spondylosis. Head CT 10/08/23 14:22 IMPRESSION: 1. No acute intracranial process seen. 2. There is no acute fracture, dislocation or subluxation in cervical spine. There are degenerative disc changes C3-C4 and C4-C5 disc levels with ventral and posterior spondylosis. Chest X-Ray 10/08/23 16:00 IMPRESSION: 1. Increased interstitial markings in both lungs without acute consolidation or pleural effusion. 2. Small left upper lobe nodules. Recommend CT correlation. Mental Status Exam Mental Status Exam Narrative: as discussed in HPI Medications Medications Current Medications Clonazepam (Clonazepam 0.5 Mg Tablet) 0.25 mg PO BID [facility] Last Admin: 10/10/23 17:02 Dose: Not Given Fluticasone Propionate (Fluticasone Propionate Nasal 16 Gm [place]) 2 spray NOSTRIL-B DAILY [facility] Last Admin: 10/10/23 17:02 Dose: Not Given Levothyroxine Sodium (Levothyroxine Sodium 75 Mcg Tablet) 75 mcg PO DAILY@0630 [facility] Last Admin: 10/10/23 06:45 Dose: Not Given Trihexyphenidyl HCl (Trihexyphenidyl Hcl 2 Mg Tablet) 1 mg PO BID [facility] Last Admin: 10/10/23 17:02 Dose: Not Given Allergies Allergies Allergy/AdvReac Type Severity Reaction Status Date / Time No Known Allergies Allergy Verified 10/08/23 12:40 [No Known Allergies*] Assessment & Plan Assessment & Plan (1) Dementia: Status: Acute Code(s): F03.90 - Unspecified dementia, unspecified severity, without behavioral disturbance, psychotic disturbance, mood disturbance, and anxiety (2) COVID-19: Status: Acute Code(s): U07.1 - COVID-19 (3) Delirium: Status: Acute Code(s): R41.0 - Disorientation, unspecified Plan pt with dementia at baseline now with COVID and a sharp change in mental status indicating very likely delirium. she is entirely unable to engage in an interview to discuss her medical care and clearly lacks any medical decision-making capacity. surrogate decision-maker should be invoked. Total time managing care of this patient today __35__ minutes.
[2023-10-10 23:32] VITALS: BP 124/80; PULSE 99; RESP 20; TEMP 37.2; O2SAT 96
--- NOTE | 2023-10-10 23:39 | PC.NURSE ---
Two staff assist with incontinent care, able to get set of vitals. Pt continues to yell and refuse PO intake.
--- NOTE | 2023-10-11 00:19 | PC.NURSE ---
call received from camera room, pt grabbed cords out of wall. cords removed. pt in bed, restless and undressed at this time
--- NOTE | 2023-10-11 01:08 | PC.NURSE ---
pt continues to pull things off the wall, items removed from grasp. bed pulled away from the wall. lights dimmed
--- NOTE | 2023-10-11 04:04 | PC.NURSE ---
pt resting quietly on/off throughout the night. eyes closed at this time, breathing even and unlabored. no apparent distress noted
[2023-10-11 06:31] VITALS: BP 132/84; PULSE 94; RESP 18; TEMP 36.4; O2SAT 95
--- NOTE | 2023-10-11 06:50 | MHC.EDTECH ---
PT cleaned and changed into dry hospital attire. PT given pillow. PT frequently takes clothes, pillow and blankets off body but was left with clothes on this time. PT's bed pulled away from the wall due to PT pulling at cords and other items. Note to staff, don't walk into the bed.
--- NOTE | 2023-10-11 07:18 | PC.NURSE ---
pt laying in bed agitated and naked, resistant to covering up, not trying to get out of bed but had been grabbing at all med equipment and bed is pulled away from the wall, refused her meds and refused all food or drink, I'm not having any of that right now
[2023-10-11] MEDS: OLANZapine 10 MG VIAL 5 MG IM (07:43)
[2023-10-11] MEDS: diphenhydrAMINE HCL 50 MG/ML VIAL IM (08:25)
--- NOTE | 2023-10-11 10:02 | PC.NURSE ---
assumed care of patient. Patient is lying in bed without clothes on, refusing blankets and hospital gown. pt is confused and disoriented, agitated. Pt is unable to answer questions, and rambles to themselves. Camera monitor on for patient safety.
--- NOTE | 2023-10-11 11:48 | PC.NURSE ---
pt in bed, with blanket on. camera in place. pt is fidgeting with blanket.
--- NOTE | 2023-10-11 12:29 | PC.NURSE ---
warm blanket given, pt accepting of blanket. pillow offered but declined. pt resting, fidgeting with blanket.
[2023-10-11 14:00] VITALS: RESP 12
--- NOTE | 2023-10-11 21:18 | PC.NURSE ---
Debora care and complete bed change done. Bladder scan 271 Pt changed into clean hospital gown. Purewick placed. Pt positioned in bed for comfort. Pt refusing meds at this time. Plan of care ongoing.
--- NOTE | 2023-10-11 21:53 | PC.NURSE ---
Pt refusing meds at this time. Pt removed purewick, gown, and blankets. Plan of care ongoing.
--- NOTE | 2023-10-12 02:21 | PC.NURSE ---
Pt continues to remove blankets and gown and throws them on floor. Plan of care ongoing.
--- NOTE | 2023-10-12 02:33 | MHC.EDTECH ---
patient continues to be agressive with care. patient has taken of clothing and blankets.
--- NOTE | 2023-10-12 04:09 | PC.NURSE ---
Pt sitting quietly in the bed but becomes agitated when anyone walks into the room. Pt states get out Pt removing sheets from the bed, will not keep bedding or gown in place. Plan of care ongoing.
--- NOTE | 2023-10-12 05:25 | MHC.EDTECH ---
vital signs unable to be taken as patient is extremely combative. Patient incontinenet of urine. patient cleaned and fresh linens applied.
--- NOTE | 2023-10-12 05:48 | PC.NURSE ---
Pt still refusing everything. Pt removed seizure pads off of bed. Plan of care ongoing.
--- NOTE | 2023-10-12 07:45 | PC.NURSE ---
this rn resumed care of pt at this time. pt refusing vitals to be taken/medication to be administered at this time. pt lying naked in position in bed holding on to purewick stating it is her baby blue. pt refuses to release purewick. pt keeps yelling the word fire! and making incoherent repetitive statements. pt not allowing this rn or tech to change her into hospital attire/apply fresh blankets. repeatedly stating for us to leave her alone. pt c/o no pain. no sob/wob noted. respirations even and unlabored. call lee placed within reach.
--- NOTE | 2023-10-12 09:14 | MHC.CM.ED ---
Patient remains in ER. Per Dr Wagoner, patient lacks capacity to make her own decisions. Marylin Faria CM manager behavior aware. Guardianship process will be started. Continue to monitor for d/c needs.
--- NOTE | 2023-10-12 09:49 | MHC.EDTECH ---
patient refusing to keep any type of clothing on and refusing to allow tech to do vital signs.
--- NOTE | 2023-10-12 10:07 | PC.NURSE ---
pt continues to refuse medication administration/vitals to be taken at this time. bed sheet tied/applied to bed rails to promote pt coverage/dignity since pt refuses application of blanket/hospital gown. RN Marylin Mccormick bedside w/ pt and pt's roommate () at this time.
--- NOTE | 2023-10-12 13:57 | PC.NURSE ---
pt resting in bed quietly, no distress at the moment,sheet covering patient
[2023-10-12 14:00] VITALS: BP 134/59; PULSE 100; RESP 12; O2SAT 99
--- NOTE | 2023-10-12 14:23 | PC.NURSE ---
pt continues to refuse any food or water stating I don't think it is a good idea I do not want to be on fire pt asked about any burning or abdomen pain but patient was unale to elaborate. PA notified of continued refusal of food or drink. Psych met with patient recently - per PA we will wait for psych consult note before determining plan
[2023-10-12 17:37] VITALS: RESP 16
[2023-10-12 17:38] LABS: Glucose, Whole Blood 89 mg/dL (60-115)
--- NOTE | 2023-10-12 17:42 | PC.NURSE ---
bed linens changed. pt very agitataed and confused during bed change. pt was incontinent or urine. [employer] MANAGER covering patient given report on patients refusal of PO intake. POC 89 - [employer] MANAGER aware
--- NOTE | 2023-10-12 18:06 | MHC.EDTECH ---
THIS PCT ASSUMED CARE OF PT AT 1700 ,PT WAS INCONTINENT OF URINE ,BED BATH GIVEN ,PT VERY COMBATIVE ,RESP TAKEN UNABLE TO GET FULL SETS OF VITALS ,RN AWARE .BLOOD SUGAR CHECK .
--- NOTE | 2023-10-12 19:00 | MHC.EDTECH ---
THIS PCT WAS TRYING TO FEED PATIENT DINNER ,PT WAS HITTING THE FORK AWAY FROM MY HAND ,THIS PCT TRIED TO GIVE PATIENT FLUIDS ,AND PATIENT KEPT ON HITTING MY HAND ,LORA PATRICIA AWARE .
--- NOTE | 2023-10-12 20:39 | MHC.CM.ED ---
CM met with patient and her partner, who is also a patient in bed 15. Per psych, patient does not have capacity to make medical decisions. Pt told me she was in the hospital, thinks she will from the covid (which she calls Naz) and complains about her lips being dry. Patient tells CM she isn't eating because she doesn't want to. Explained to patient that it is very important that she takes her meds, and at least drinks some fluids. Patient was calm and cooperative, not aggressive. Patient kept rubbing her lips with both her hands. CM was able to convince patient to drink a glass of water with a straw. Refused pudding, apple sauce or ice cream. RN and provider aware of po intake.
--- NOTE | 2023-10-12 21:00 | PC.NURSE ---
XIAO Lemus was able to convince patient to drink some water. This RN was also able to have pt drink some water. Multiple attempts were made to get pt to take her two medications without success.
--- NOTE | 2023-10-12 22:22 | PC.NURSE ---
pt sleeping. camera in place.
[2023-10-12 22:51] VITALS: BP 136/61; PULSE 96; RESP 16; TEMP 36.4; O2SAT 97
--- NOTE | 2023-10-12 22:52 | MHC.EDTECH ---
Pt in much better mood ,vitals taken ,Pt drank 60 ml water ,refused other foods and fluids ,pt is dry and reposition in bed ,Patient comfortable ,no apparent distress ,Call lee within Pt reach .
--- NOTE | 2023-10-13 00:44 | MHC.EDTECH ---
PATIENT REMOVE GOWN AND BLANKETS AND THREW IT ON FLOOR ,THIS PCT PUT CLEAN GOWN ON PATIENT ,AND MORE BLANKETS ,BED ALARM ON BED AND TELLE SITTER DARRIUSA IN ROOM .
--- NOTE | 2023-10-13 01:11 | PC.NURSE ---
pt confused, medicated per mar, pt was able to take several sips of water, pt confused and unable to redirect
--- NOTE | 2023-10-13 01:24 | MHC.EDTECH ---
Patient was incontinent of urine ,care given and bedding change .
--- NOTE | 2023-10-13 01:30 | PC.NURSE ---
pt incontinent of urine, holding on to the blue part of pure wick refusing to left go after multiple attempts, was able to crush medication and place in water, pt continue to take sips of water. CC Caire aware of pt having blue part of pure wick in her hand.
--- NOTE | 2023-10-13 01:33 | PC.NURSE ---
no labored respiration and no sign of distress at this time.
--- NOTE | 2023-10-13 01:38 | MHC.EDTECH ---
Patient continue to be reposition and boosted up in bed ,Patient continue refusing to give up Pure wick ,thats in her hand ,Patient states its her blue baby . LORA Galloway and cloth pattern maker Karen aware .
[2023-10-13] MEDS: diphenhydrAMINE HCL 50 MG/ML VIAL IM (03:06)
--- NOTE | 2023-10-13 03:13 | PC.NURSE ---
pt medicated per Mar.
--- NOTE | 2023-10-13 03:22 | PC.NURSE ---
Pt refusing vitals at this time.
[2023-10-13 06:34] VITALS: BP 137/68; PULSE 79; RESP 15; TEMP 36.6; O2SAT 95
--- NOTE | 2023-10-13 06:45 | PC.NURSE ---
Pt repositioned, pt clean dry, pt remain confused and refusing po medications, pt did take several sips of water.
[2023-10-13 07:27] VITALS: BP 143/54; PULSE 102; RESP 20; TEMP 36.5; O2SAT 97
[2023-10-13] MEDS: Levothyroxine Sodium 75 MCG TABLET PO (09:32)
[2023-10-13] MEDS: clonazePAM 0.5 MG TABLET 0.25 MG PO (09:36)
--- NOTE | 2023-10-13 09:43 | PC.NURSE ---
Addendum entered by Jackie Webb RN 10/13/23 09:51: pt refused to eat breakfast. sts she's not hungry and she will eat tonight . Original Note: assumed care of pt at 0700. pt calm and cooperative. pleasantly confused. sitter camera at bedside for pt safety. pt medicated per dec. pt able to take medications crushed and mixed in water. pt tolerated well. pt now resting quietly in bed. report given to LORA Clark.
--- NOTE | 2023-10-13 10:20 | PC.NURSE ---
med req'd fluticasone
[2023-10-13] MEDS: Trihexyphenidyl HCL 2 MG TABLET 1 MG PO (10:36)
[2023-10-13] MEDS: Fluticasone Propionate Nasal 16 GM SPRAY 2 SPRAY NOSTRIL-B (10:37)
--- NOTE | 2023-10-13 11:09 | PC.NURSE ---
pt boosted, repositioned, given other pad and placed pillow under plastics process hand. another pillow given for neck. new blankets.
--- NOTE | 2023-10-13 11:50 | MHC.CM.ED ---
Patient remains in ER. Patient's brother identified as Federico Lira and apparently lives in [facility]. Posssible contact telephone number is [phone]. T/W attempted to call this number. No answer. No ability to leave a message. Another possible contact telephone number of [phone] was also found. T/W attempted to call this number. No answer. Generic voicemail. Left a message requesting Edward call [facility] Case Management. Marylin Faria, [employer] Supervisor aware. Continue to monitor for d/c needs.
[2023-10-13 15:00] VITALS: BP 124/57; PULSE 80; RESP 16; TEMP 36.6; O2SAT 92
--- NOTE | 2023-10-13 19:59 | MHC.CM.ED ---
[facility] called for an update on patient disposition.
[2023-10-13 23:14] VITALS: BP 146/68; PULSE 98; RESP 14; O2SAT 97
--- NOTE | 2023-10-14 03:03 | PC.NURSE ---
Incontinence care provided. Pt tolerated well.
[2023-10-14 06:12] VITALS: BP 140/66; PULSE 84; RESP 16; TEMP 36.3; O2SAT 97
[2023-10-14] MEDS: clonazePAM 0.5 MG TABLET 0.25 MG PO ×2 (09:31→20:03)
[2023-10-14] MEDS: Levothyroxine Sodium 75 MCG TABLET PO (09:31)
--- NOTE | 2023-10-14 09:33 | MHC.EDTECH ---
Late entry: 829: Pt awake, found to be incontinent of urine. Pt was cleaned up, new brief applied, Pt repositioned and sat up for breakfast. T/w heated up breakfast for Pt. Pt watching TV
--- NOTE | 2023-10-14 11:04 | PC.NURSE ---
Med ARTANE not given, not available in pyxis, not brought down by pharmacy as requested
--- NOTE | 2023-10-14 11:22 | PC.NURSE ---
patient sat up and ate his breakfast this morning, likes to chat with his . patient currently resting in hospital bed, respirations equal and unlabored, skin PWD. medicated per MAR
--- NOTE | 2023-10-14 11:26 | PC.NURSE ---
patient sat up and ate her breakfast, medicated per DEC. patient given ice water, tissues and warm blanket for comfort. Skin PWD, respirations equal and unlabored, patient shows no signs of distress
[2023-10-14] MEDS: Trihexyphenidyl HCL 2 MG TABLET 1 MG PO ×2 (11:34→20:03)
--- NOTE | 2023-10-14 13:10 | PM.IMHP ---
History of Present Illness Date of Service: 10/14/23 Chief Complaint: Weakness, confusion A 73 years old PMH w Hypothyroid, anxiety who presented to ED with AMS. found to be Covid19 positive at that point with increase weakness and confusion. Seen by psychiatry in ED who deemed her not having capacity and as she does not have HCP. Filing for Guardianship at this point but is is unsafe for her to be discharged back home. her significant other lacks capacity to take care of her at home and that is why after discussing with EXCE[employer]SULTANT and Case workers decision was made to keep her in house until her guardianship completed. Review of Systems Review of Systems: No fever, chills No chest pain, palpitation No shortness of breath or coughing No abdominal pain, nausea or vomiting No urinary symptoms Yes all other systems are reviewed and are negative [facility] Medical History Hypothyroid Social History Unable to assess alcohol history related to: Unknown Use of substances other than those prescribed or required for medical reasons: Unable to respond Advance Directives: No Advance Directives Information Provided: No Meds Allergies Allergy/AdvReac Type Severity Reaction Status Date / Time No Known Allergies Allergy Verified 10/08/23 12:40 [No Known Allergies*] Active Medications: Current Medications Acetaminophen (Acetaminophen 325 Mg Tablet) 650 mg PO Q6H PRN PRN Reason: Pain, Mild (Pain Scale 1-3) Clonazepam (Clonazepam 0.5 Mg Tablet) 0.25 mg PO BID [facility] Last Admin: 10/14/23 09:31 Dose: 0.25 mg Enoxaparin Sodium (Enoxaparin Sodium 40 Mg/0.4 Ml Syringe) 40 mg SUBCUT Q24H [facility] Fluticasone Propionate (Fluticasone Propionate Nasal 16 Gm [place]) 2 spray NOSTRIL-B DAILY [facility] Last Admin: 10/14/23 10:19 Dose: Not Given Levothyroxine Sodium (Levothyroxine Sodium 75 Mcg Tablet) 75 mcg PO DAILY@0630 [facility] Last Admin: 10/14/23 09:31 Dose: 75 mcg Ondansetron HCl (Ondansetron Hcl 4 Mg/2 Ml Vial) 4 mg IVPUSH Q8H PRN PRN Reason: Nausea and Vomiting Sodium Chloride (0.9 % Sodium Chloride Flush 3 Ml Syringe) 3 ml IVFLUSH QSHIFT LATISHA Trihexyphenidyl HCl (Trihexyphenidyl Hcl 2 Mg Tablet) 1 mg PO BID [facility] Last Admin: 10/14/23 11:34 Dose: 1 mg Home Medications Medication Instructions Recorded Confirmed Last Taken Type clonazepam 0.5 mg tablet 0.25 mg PO BID 10/07/23 10/08/23 Unknown History fluticasone propionate 50 2 spray intranasal DAILY 10/07/23 10/08/23 Unknown History mcg/actuation nasal spray,suspension levothyroxine 75 mcg tablet 75 mcg PO DAILY 10/07/23 10/08/23 Unknown History trihexyphenidyl 2 mg tablet 1 mg PO BID 10/07/23 10/08/23 Unknown History Physical Exam Vital Signs and Narrative: Vital Signs: Last Vital Signs Temp 97.4 F 10/14/23 06:12 Pulse 84 10/14/23 06:12 Resp 16 10/14/23 06:12 BP 140/66 H 10/14/23 06:12 Pulse Ox 97 10/14/23 06:12 O2 Del Method Room Air 10/14/23 06:12 BMI result Body Mass Index 20.5 Const: Other: Constitutional : Awake, interactive, not in distress Neck : Normal inspection, Supple Cardiovascular : RRR, no JVP Respiratory : good bilateral air entry, no wheezes or rhonchi Gastrointestinal: soft, lax, Non tender Skin : Warm, Dry Neurological : Alert & oriented to self, No focal deficit Results Labs 10/08/23 13:05 10/08/23 13:05 Assessment and Plan (1) Delirium: Status: Acute Plan A 73 years old PMH w Hypothyroid, anxiety who presented to ED with AMS. found to be Covid19 positive at that point with increase weakness and confusion. Metabolic encephalopathy close to her baseline waiting guardianship recurrent reorientation Physical deconditioning PT eval Covid 19 infx recent, repeat the test Hypothyroidism Levothyroixne ' DVT PPx Lovenox Quality Stroke Does the patient have a stroke diagnosis?: No VTE Prior VTE?: No VTE Risk Level:: Medical - moderate - high VTE Device Contraindication: Treatment Not Indicated VTE Drug Contraindication: N/A - Med Ordered
[2023-10-14 13:15] LABS: Hematocrit 39.6 % (37.0-47.0); Hemoglobin 13.5 g/dl (12.0-16.0); Mean Corpuscular HGB Conc 34.1 g/dl (31.0-35.0); Mean Corpuscular Hemoglobin 32.5 pg (27.0-33.0); Mean Corpuscular Volume 95.4 fL (80.0-98.0); NRBC Pct Auto 0.6 /100WBC (0.0-0.2); Platelet Count 152 X10*3/uL (160-400); Red Blood Count 4.15 X10*6/uL (4.20-5.50); Red Cell Distribution Width 15.7 % (11.0-16.0); White Blood Count 11.9 X10*3/uL (4.8-10.8)
[2023-10-14 13:26] LABS: Anion Gap 12 (12-20); Blood Urea Nitrogen 53 mg/dL (9-16); Calcium 9.7 mg/dL (8.4-10.2); Carbon Dioxide 25 mmol/L (22-29); Chloride 120 mmol/L (96-108); Creatinine Clr Calc Pharmacy 37.3; Estimated Glomerular Filt Rate 44; Glucose Random 127 mg/dL (60-115); Potassium 3.6 mmol/L (3.3-5.1); Sodium 153 mmol/L (135-145)
[2023-10-14 13:42] LABS: COVID-19 Test Negative (Negative); IDNOW Serial# BCCEAD1C
--- NOTE | 2023-10-14 14:40 | PC.NURSE ---
patient sitting up eating her lunch, has remained calm and cooperative. patient respirations equal and unlabored, skin pwd, patient shows no signs of distress
[2023-10-14 15:31] VITALS: BP 124/67; PULSE 90; RESP 18; TEMP 36; O2SAT 97
[2023-10-14] MEDS: Dextrose 5 % 1,000 ML 100 ML IVCONT (18:27)
[2023-10-14 19:33] VITALS: BP 124/60; PULSE 79; RESP 18; TEMP 36.5; O2SAT 97
[2023-10-14 21:30] LABS: Anion Gap 12 (12-20); Blood Urea Nitrogen 52 mg/dL (9-16); Carbon Dioxide 25 mmol/L (22-29); Chloride 117 mmol/L (96-108); Creatinine Clr Calc Pharmacy 40.3; Estimated Glomerular Filt Rate 48; Glucose Random 198 mg/dL (60-115); Potassium 3.6 mmol/L (3.3-5.1); Sodium 150 mmol/L (135-145)
[2023-10-15 04:00] VITALS: BP 123/58; PULSE 78; RESP 16; TEMP 36.7; O2SAT 95
[2023-10-15] MEDS: Dextrose 5 % 1,000 ML 100 ML IVCONT (04:46)
[2023-10-15] MEDS: Levothyroxine Sodium 75 MCG TABLET PO (06:35)
[2023-10-15 07:30] VITALS: BP 142/65; PULSE 78; RESP 18; TEMP 36.6; O2SAT 96
[2023-10-15] MEDS: Trihexyphenidyl HCL 2 MG TABLET 1 MG PO ×2 (08:20→20:23)
[2023-10-15] MEDS: Fluticasone Propionate Nasal 16 GM SPRAY 2 SPRAY NOSTRIL-B (09:11)
[2023-10-15 09:37] LABS: Anion Gap 11 (12-20); Blood Urea Nitrogen 40 mg/dL (9-16); Calcium 8.8 mg/dL (8.4-10.2); Carbon Dioxide 23 mmol/L (22-29); Chloride 111 mmol/L (96-108); Creatinine Clr Calc Pharmacy 42.6; Estimated Glomerular Filt Rate 51; Glucose Random 142 mg/dL (60-115); Potassium 3.3 mmol/L (3.3-5.1); Sodium 142 mmol/L (135-145)
--- NOTE | 2023-10-15 10:59 | HO.PM.IMPN ---
Subjective Subjective Date of Service: 10/15/23 Interval History: Seen and evaluated this morning Feels more comfortable denies any fever or chills Na recovered to normal Review of Systems Review of Systems: Yes all other systems are reviewed and are negative Physical Exam Vital Signs: Vital Signs: Last Vital Signs Temp 97.9 F 10/15/23 07:30 Pulse 78 10/15/23 07:30 Resp 18 10/15/23 07:30 BP 142/65 H 10/15/23 07:30 Pulse Ox 96 10/15/23 07:30 O2 Del Method Room Air 10/15/23 07:30 BMI result Body Mass Index 20.5 Const: Other: Constitutional : Awake, interactive, not in distress Neck : Normal inspection, Supple Cardiovascular : RRR, no JVP Respiratory : good bilateral air entry, no wheezes or rhonchi Gastrointestinal: soft, lax, Non tender Skin : Warm, Dry Neurological : Alert & oriented to self and place, No focal deficit Objective Data Active Medications Acetaminophen (Acetaminophen 325 Mg Tablet) 650 mg PO Q6H PRN PRN Reason: Pain, Mild (Pain Scale 1-3) Enoxaparin Sodium (Enoxaparin Sodium 40 Mg/0.4 Ml Syringe) 40 mg SUBCUT Q24H [facility] Last Admin: 10/14/23 13:14 Dose: Not Given Documented By: BRY Non-Admin Reason: Patient Asleep Fluticasone Propionate (Fluticasone Propionate Nasal 16 Gm [place]) 2 spray NOSTRIL-B DAILY [facility] Last Admin: 10/15/23 09:11 Dose: 2 spray Documented By: DAPHNE Dextrose (D5w) 1,000 mls @ 100 mls/hr IVCONT .Q10H [facility] Last Admin: 10/15/23 04:46 Dose: 100 mls/hr Documented By: NICK Levothyroxine Sodium (Levothyroxine Sodium 75 Mcg Tablet) 75 mcg PO DAILY@0630 [facility] Last Admin: 10/15/23 06:35 Dose: 75 mcg Documented By: NICK Ondansetron HCl (Ondansetron Hcl 4 Mg/2 Ml Vial) 4 mg IVPUSH Q8H PRN PRN Reason: Nausea and Vomiting Sodium Chloride (0.9 % Sodium Chloride Flush 3 Ml Syringe) 3 ml IVFLUSH QSHIFT [facility] Last Admin: 10/15/23 08:23 Dose: Not Given Documented By: DAPHNE Non-Admin Reason: IV Running Trihexyphenidyl HCl (Trihexyphenidyl Hcl 2 Mg Tablet) 1 mg PO BID [facility] Last Admin: 10/15/23 08:20 Dose: 1 mg Documented By: DAPHNE Labs 10/14/23 13:09 10/15/23 08:54 Labs: Laboratory Results - last 24 hr 10/14/23 10/14/23 10/15/23 13:09 21:02 08:54 MCV 95.4 MCH 32.5 MCHC 34.1 RDW 15.7 Plt Count 152 L MPV 11.0 Absolute Nucleated RBC 0.070 H Nucleated RBC % (auto) 0.6 H Hold Purple Top SEE NOTE Anion Gap 12 12 11 L Estim Creat Clear Calc 37.3 40.3 42.6 Estimated GFR 44 48 51 Random Glucose 127 H 198 H 142 H Calcium 9.7 9.0 D 8.8 COVID-19 (ELIAZAR) Negative COVID-19 Clin Com See Note Assessment and Plan (1) Acute hypernatremia: Status: Acute Plan A 73 years old PMH w Hypothyroid, anxiety who presented to ED with AMS. found to be Covid19 positive at that point with increase weakness and confusion. Metabolic encephalopathy 2/2 acute Hypernatremia on admission Improving as Na level normalized Na of 153 , started on D5W Na improved to 142 waiting guardianship recurrent reorientation follow BMP Physical deconditioning PT eval Hx Covid 19 infx recent, repeat is negative Hypothyroidism Levothyroixne ' DVT PPx Lovenox The patient will need overnight hospital stay for monitoring of Sodium level and encephalopathy pending safe discharge plan. Quality Stroke Does the patient have a stroke diagnosis?: No VTE Prior VTE?: No VTE Risk Level:: Medical - moderate - high VTE Device Contraindication: Treatment Not Indicated VTE Drug Contraindication: N/A - Med Ordered
--- NOTE | 2023-10-15 11:14 | W.MHC.F2F ---
Service Date Service Date: 10/15/23 Encounter Date of encounter: 10/15/23 Reasons for Services Signs and symptoms assessed: Physical deconditioning new Nebulizer Reason for long-term: medication management and teach disease management Reason for physical therapy: home safety and mobility and therapeutic exercises Homebound: Leaving the home is medically contraindicated at this time without the asist of a device and/or another person due th the listed conditions above and below. Reason homebound: unsteady gait / fall risk and unable to drive Certification: Based on the above findings, I certify that this patient is confined to the home and needs intermittent long-term care, physical therapy and/or speech therapy, or continues to need occupational therapy. The patient is under my care, and I have initiated the establishment of the plan of care. The patient will be followed by a physician who will periodically review the plan of care. Time Spent With Patient Time: Total time managing care of this patient today ____ minutes.
[2023-10-15] MEDS: Enoxaparin Sodium 40 MG/0.4 ML SYRINGE SUBCUT (13:19)
[2023-10-15 15:12] VITALS: BP 140/62; PULSE 99; RESP 16; TEMP 36.6; O2SAT 96
[2023-10-15] MEDS: 0.9 % Sodium Chloride Flush 3 ML SYRINGE IVFLUSH ×2 (15:40→20:24)
[2023-10-15 19:48] VITALS: BP 133/60; PULSE 89; RESP 16; TEMP 36.9; O2SAT 97
[2023-10-16 03:07] VITALS: BP 133/61; RESP 18; TEMP 36.4; O2SAT 98
[2023-10-16] MEDS: Levothyroxine Sodium 75 MCG TABLET PO (06:14)
[2023-10-16 06:58] VITALS: BP 147/70; PULSE 77; RESP 18; TEMP 36.6; O2SAT 97
[2023-10-16 07:51] LABS: Anion Gap 11 (12-20); Blood Urea Nitrogen 33 mg/dL (9-16); Calcium 8.9 mg/dL (8.4-10.2); Carbon Dioxide 24 mmol/L (22-29); Chloride 107 mmol/L (96-108); Creatinine Clr Calc Pharmacy 48.6; Estimated Glomerular Filt Rate 60; Glucose Random 116 mg/dL (60-115); Potassium 3.3 mmol/L (3.3-5.1); Sodium 139 mmol/L (135-145)
[2023-10-16] MEDS: Trihexyphenidyl HCL 2 MG TABLET 1 MG PO ×2 (08:54→22:15)
[2023-10-16] MEDS: 0.9 % Sodium Chloride Flush 3 ML SYRINGE IVFLUSH ×3 (08:55→22:15)
[2023-10-16] MEDS: Fluticasone Propionate Nasal 16 GM SPRAY 2 SPRAY NOSTRIL-B (08:59)
--- NOTE | 2023-10-16 10:54 | HO.PM.IMPN ---
Subjective Subjective Date of Service: 10/16/23 Interval History: Seen and evaluated this morning Feels more comfortable denies any fever or chills Review of Systems Review of Systems: Yes all other systems are reviewed and are negative Physical Exam Vital Signs: Vital Signs: Last Vital Signs Temp 98 F 10/16/23 06:58 Pulse 77 10/16/23 06:58 Resp 18 10/16/23 06:58 BP 147/70 H 10/16/23 06:58 Pulse Ox 97 10/16/23 06:58 O2 Del Method Room Air 10/16/23 06:58 BMI result Body Mass Index 20.5 Const: Other: Constitutional : Awake, interactive, not in distress Neck : Normal inspection, Supple Cardiovascular : RRR, no JVP Respiratory : good bilateral air entry, no wheezes or rhonchi Gastrointestinal: soft, lax, Non tender Skin : Warm, Dry Neurological : Alert & oriented to self and place, No focal deficit Objective Data Active Medications Acetaminophen (Acetaminophen 325 Mg Tablet) 650 mg PO Q6H PRN PRN Reason: Pain, Mild (Pain Scale 1-3) Enoxaparin Sodium (Enoxaparin Sodium 40 Mg/0.4 Ml Syringe) 40 mg SUBCUT Q24H [facility] Last Admin: 10/15/23 13:19 Dose: 40 mg Documented By: DAPHNE Fluticasone Propionate (Fluticasone Propionate Nasal 16 Gm [place]) 2 spray NOSTRIL-B DAILY [facility] Last Admin: 10/16/23 08:59 Dose: 2 spray Documented By: LEO Levothyroxine Sodium (Levothyroxine Sodium 75 Mcg Tablet) 75 mcg PO DAILY@0630 [facility] Last Admin: 10/16/23 06:14 Dose: 75 mcg Documented By: LEAH Ondansetron HCl (Ondansetron Hcl 4 Mg/2 Ml Vial) 4 mg IVPUSH Q8H PRN PRN Reason: Nausea and Vomiting Sodium Chloride (0.9 % Sodium Chloride Flush 3 Ml Syringe) 3 ml IVFLUSH QSHIFT [facility] Last Admin: 10/16/23 08:55 Dose: 3 ml Documented By: LEO Trihexyphenidyl HCl (Trihexyphenidyl Hcl 2 Mg Tablet) 1 mg PO BID [facility] Last Admin: 10/16/23 08:54 Dose: 1 mg Documented By: LEO Labs 10/14/23 13:09 10/16/23 05:55 Labs: Laboratory Results - last 24 hr 10/16/23 10/16/23 05:55 07:08 Hold Purple Top SEE NOTE Anion Gap 11 L Estim Creat Clear Calc 48.6 Estimated GFR 60 Random Glucose 116 H Calcium 8.9 Assessment and Plan (1) Acute hypernatremia: Status: Acute (2) Cognitive decline: Status: Acute Plan A 73 years old PMH w Hypothyroid, anxiety who presented to ED with AMS. found to be Covid19 positive at that point with increase weakness and confusion. Metabolic encephalopathy 2/2 acute Hypernatremia on admission mental status back to baseline as Na level normalized waiting guardianship recurrent reorientation Physical deconditioning PT eval Hx Covid 19 infx recent, repeat is negative Hypothyroidism Levothyroixne ' DVT PPx Lovenox The patient will need hospital stay pending guardiaship safe discharge plan. Quality Stroke Does the patient have a stroke diagnosis?: No VTE Prior VTE?: No VTE Risk Level:: Medical - moderate - high VTE Device Contraindication: Treatment Not Indicated VTE Drug Contraindication: N/A - Med Ordered
[2023-10-16] MEDS: Enoxaparin Sodium 40 MG/0.4 ML SYRINGE SUBCUT (12:26)
[2023-10-16 15:15] VITALS: BP 155/68; PULSE 90; RESP 16; TEMP 36.6; O2SAT 99
[2023-10-16 19:53] VITALS: BP 121/56; PULSE 95; RESP 17; TEMP 36.6; O2SAT 97
[2023-10-17 04:00] VITALS: BP 157/68; PULSE 100; RESP 16; TEMP 36.6; O2SAT 97
[2023-10-17] MEDS: Levothyroxine Sodium 75 MCG TABLET PO (06:36)
[2023-10-17 07:58] VITALS: BP 149/68; PULSE 98; RESP 18; TEMP 36.3; O2SAT 98
[2023-10-17] MEDS: 0.9 % Sodium Chloride Flush 3 ML SYRINGE IVFLUSH ×2 (09:13→22:49)
[2023-10-17] MEDS: Trihexyphenidyl HCL 2 MG TABLET 1 MG PO ×2 (09:13→22:49)
[2023-10-17] MEDS: Fluticasone Propionate Nasal 16 GM SPRAY 2 SPRAY NOSTRIL-B (09:13)
--- NOTE | 2023-10-17 10:57 | HO.PM.IMPN ---
Subjective Subjective Date of Service: 10/17/23 Interval History: Seen and evaluated this morning Feels comfortable denies any complaints Review of Systems Review of Systems: Yes all other systems are reviewed and are negative Physical Exam Vital Signs: Vital Signs: Last Vital Signs Temp 97.3 F 10/17/23 07:58 Pulse 98 10/17/23 07:58 Resp 18 10/17/23 07:58 BP 149/68 H 10/17/23 07:58 Pulse Ox 98 10/17/23 07:58 O2 Del Method Room Air 10/17/23 07:58 BMI result Body Mass Index 20.5 Const: Other: Constitutional : Awake, interactive, not in distress Neck : Normal inspection, Supple Cardiovascular : RRR, no JVP Respiratory : good bilateral air entry, no wheezes or rhonchi Gastrointestinal: soft, lax, Non tender Skin : Warm, Dry Neurological : Alert & oriented to self and place, No focal deficit Objective Data Active Medications Acetaminophen (Acetaminophen 325 Mg Tablet) 650 mg PO Q6H PRN PRN Reason: Pain, Mild (Pain Scale 1-3) Enoxaparin Sodium (Enoxaparin Sodium 40 Mg/0.4 Ml Syringe) 40 mg SUBCUT Q24H [facility] Last Admin: 10/16/23 12:26 Dose: 40 mg Documented By: LEO Fluticasone Propionate (Fluticasone Propionate Nasal 16 Gm [place]) 2 spray NOSTRIL-B DAILY [facility] Last Admin: 10/17/23 09:13 Dose: 2 spray Documented By: LEO Levothyroxine Sodium (Levothyroxine Sodium 75 Mcg Tablet) 75 mcg PO DAILY@0630 [facility] Last Admin: 10/17/23 06:36 Dose: 75 mcg Documented By: SKY Ondansetron HCl (Ondansetron Hcl 4 Mg/2 Ml Vial) 4 mg IVPUSH Q8H PRN PRN Reason: Nausea and Vomiting Sodium Chloride (0.9 % Sodium Chloride Flush 3 Ml Syringe) 3 ml IVFLUSH QSHIFT [facility] Last Admin: 10/17/23 09:13 Dose: 3 ml Documented By: LEO Trihexyphenidyl HCl (Trihexyphenidyl Hcl 2 Mg Tablet) 1 mg PO BID [facility] Last Admin: 10/17/23 09:13 Dose: 1 mg Documented By: LEO Labs 10/14/23 13:09 10/16/23 05:55 Assessment and Plan (1) Cognitive decline: Status: Acute Plan A 73 years old PMH w Hypothyroid, anxiety who presented to ED with AMS. found to be Covid19 positive at that point with increase weakness and confusion. Metabolic encephalopathy 2/2 acute Hypernatremia on admission mental status back to baseline as Na level normalized waiting guardianship recurrent reorientation Physical deconditioning PT eval Hx Covid 19 infx recent, repeat is negative Hypothyroidism Levothyroixne ' DVT PPx Lovenox The patient will need hospital stay pending guardiaship and safe discharge plan. Quality Stroke Does the patient have a stroke diagnosis?: No VTE Prior VTE?: No VTE Risk Level:: Medical - moderate - high VTE Device Contraindication: Treatment Not Indicated VTE Drug Contraindication: N/A - Med Ordered
[2023-10-17] MEDS: Enoxaparin Sodium 40 MG/0.4 ML SYRINGE SUBCUT (14:41)
[2023-10-17 15:13] VITALS: BP 156/67; PULSE 87; RESP 18; TEMP 36.8; O2SAT 99
[2023-10-17 19:41] VITALS: BP 124/58; PULSE 88; RESP 18; TEMP 37.1; O2SAT 97
[2023-10-18 03:40] VITALS: BP 134/61; PULSE 80; RESP 18; TEMP 36.6; O2SAT 99
[2023-10-18] MEDS: Levothyroxine Sodium 75 MCG TABLET PO (06:30)
[2023-10-18 08:00] VITALS: BP 110/53; PULSE 75; RESP 18; TEMP 36.7; O2SAT 97
[2023-10-18] MEDS: Trihexyphenidyl HCL 2 MG TABLET 1 MG PO ×2 (09:18→20:03)
[2023-10-18] MEDS: Fluticasone Propionate Nasal 16 GM SPRAY 2 SPRAY NOSTRIL-B (09:20)
[2023-10-18] MEDS: 0.9 % Sodium Chloride Flush 3 ML SYRINGE IVFLUSH ×2 (09:24→15:29)
--- NOTE | 2023-10-18 10:20 | P.PNIM_ITS ---
Subjective Subjective Date of Service: 10/18/23 Interval History: Seen and evaluated this morning Feels comfortable denies any complaints Review of Systems Review of Systems: Yes all other systems are reviewed and are negative Physical Exam 2 Vital Signs: Vital Signs: Last Vital Signs Temp 98.1 F 10/18/23 08:00 Pulse 75 10/18/23 08:00 Resp 18 10/18/23 08:00 BP 110/53 L 10/18/23 08:00 Pulse Ox 97 10/18/23 08:00 O2 Del Method Room Air 10/18/23 08:00 BMI result Body Mass Index 20.5 Const: Other: Constitutional : Awake, interactive, not in distress Neck : Normal inspection, Supple Cardiovascular : RRR, no JVP Respiratory : good bilateral air entry, no wheezes or rhonchi Gastrointestinal: soft, lax, Non tender Skin : Warm, Dry Neurological : Alert & oriented to self and place, No focal deficit Objective Data Active Medications Acetaminophen (Acetaminophen 325 Mg Tablet) 650 mg PO Q6H PRN PRN Reason: Pain, Mild (Pain Scale 1-3) Enoxaparin Sodium (Enoxaparin Sodium 40 Mg/0.4 Ml Syringe) 40 mg SUBCUT Q24H [facility] Last Admin: 10/17/23 14:41 Dose: 40 mg Documented By: LEO Fluticasone Propionate (Fluticasone Propionate Nasal 16 Gm [place]) 2 spray NOSTRIL-B DAILY [facility] Last Admin: 10/18/23 09:20 Dose: 2 spray Documented By: ALEX Levothyroxine Sodium (Levothyroxine Sodium 75 Mcg Tablet) 75 mcg PO DAILY@0630 [facility] Last Admin: 10/18/23 06:30 Dose: 75 mcg Documented By: SKY Ondansetron HCl (Ondansetron Hcl 4 Mg/2 Ml Vial) 4 mg IVPUSH Q8H PRN PRN Reason: Nausea and Vomiting Sodium Chloride (0.9 % Sodium Chloride Flush 3 Ml Syringe) 3 ml IVFLUSH QSHIFT [facility] Last Admin: 10/18/23 09:24 Dose: 3 ml Documented By: ALEX Trihexyphenidyl HCl (Trihexyphenidyl Hcl 2 Mg Tablet) 1 mg PO BID [facility] Last Admin: 10/18/23 09:18 Dose: 1 mg Documented By: ALEX Labs 10/14/23 13:09 10/16/23 05:55 Assessment and Plan (1) Cognitive decline: Status: Acute Plan A 73 years old PMH w Hypothyroid, anxiety who presented to ED with AMS. found to be Covid19 positive at that point with increase weakness and confusion. Metabolic encephalopathy 2/2 acute Hypernatremia on admission, resolved mental status back to baseline as Na level normalized waiting guardianship recurrent reorientation Physical deconditioning PT eval Hx Covid 19 infx recent, repeat is negative Hypothyroidism Levothyroixne ' DVT PPx Lovenox The patient will need hospital stay pending guardiaship and safe discharge plan. Quality Stroke Does the patient have a stroke diagnosis?: No VTE Prior VTE?: No VTE Risk Level:: Medical - moderate - high VTE Device Contraindication: Treatment Not Indicated VTE Drug Contraindication: N/A - Med Ordered
[2023-10-18] MEDS: Enoxaparin Sodium 40 MG/0.4 ML SYRINGE SUBCUT (13:37)
[2023-10-18 15:38] VITALS: BP 130/60; PULSE 95; RESP 17; TEMP 36.9; O2SAT 98
[2023-10-18 19:33] VITALS: BP 110/51; PULSE 88; RESP 18; TEMP 36.1; O2SAT 99
[2023-10-19] MEDS: 0.9 % Sodium Chloride Flush 3 ML SYRINGE IVFLUSH ×4 (00:50→20:40)
[2023-10-19 03:19] VITALS: BP 126/59; PULSE 90; RESP 17; TEMP 36.7; O2SAT 96
[2023-10-19] MEDS: Levothyroxine Sodium 75 MCG TABLET PO (06:25)
[2023-10-19 08:00] VITALS: BP 129/62; PULSE 93; RESP 18; TEMP 36.9; O2SAT 96
[2023-10-19] MEDS: Trihexyphenidyl HCL 2 MG TABLET 1 MG PO ×2 (08:38→20:37)
--- NOTE | 2023-10-19 11:07 | HO.PM.IMPN ---
Subjective Subjective Date of Service: 10/19/23 Interval History: Seen and evaluated this morning Feels comfortable denies any complaints Review of Systems Review of Systems: Yes all other systems are reviewed and are negative Physical Exam Vital Signs: Vital Signs: Last Vital Signs Temp 98.4 F 10/19/23 08:00 Pulse 93 10/19/23 08:00 Resp 18 10/19/23 08:00 BP 129/62 10/19/23 08:00 Pulse Ox 96 10/19/23 08:00 O2 Del Method Room Air 10/19/23 08:00 BMI result Body Mass Index 20.5 Const: Other: Constitutional : Awake, interactive, not in distress Neck : Normal inspection, Supple Cardiovascular : RRR, no JVP Respiratory : good bilateral air entry, no wheezes or rhonchi Gastrointestinal: soft, lax, Non tender Skin : Warm, Dry Neurological : Alert & oriented to self and place but otherwise confused and can get easily distracted, having tremors, No focal deficit Objective Data Active Medications Acetaminophen (Acetaminophen 325 Mg Tablet) 650 mg PO Q6H PRN PRN Reason: Pain, Mild (Pain Scale 1-3) Enoxaparin Sodium (Enoxaparin Sodium 40 Mg/0.4 Ml Syringe) 40 mg SUBCUT Q24H [facility] Last Admin: 10/18/23 13:37 Dose: 40 mg Documented By: ALEX Fluticasone Propionate (Fluticasone Propionate Nasal 16 Gm [place]) 2 spray NOSTRIL-B DAILY [facility] Last Admin: 10/19/23 08:38 Dose: Not Given Documented By: CHILO Non-Admin Reason: Patient Refused Levothyroxine Sodium (Levothyroxine Sodium 75 Mcg Tablet) 75 mcg PO DAILY@0630 [facility] Last Admin: 10/19/23 06:25 Dose: 75 mcg Documented By: SATYA Ondansetron HCl (Ondansetron Hcl 4 Mg/2 Ml Vial) 4 mg IVPUSH Q8H PRN PRN Reason: Nausea and Vomiting Sodium Chloride (0.9 % Sodium Chloride Flush 3 Ml Syringe) 3 ml IVFLUSH QSHIFT [facility] Last Admin: 10/19/23 08:38 Dose: 3 ml Documented By: CHILO Trihexyphenidyl HCl (Trihexyphenidyl Hcl 2 Mg Tablet) 1 mg PO BID [facility] Last Admin: 10/19/23 08:38 Dose: 1 mg Documented By: CHILO Labs 10/14/23 13:09 10/16/23 05:55 Assessment and Plan (1) Cognitive decline: Status: Acute Plan A 73 years old PMH w Hypothyroid, anxiety who presented to ED with AMS. found to be Covid19 positive at that point with increase weakness and confusion. Metabolic encephalopathy 2/2 acute Hypernatremia on admission, resolved mental status back to baseline as Na level normalized To get Psych evaluation for capacity to choose a health care proxy, otherwise she will need to wait for Guardianship recurrent reorientation Physical deconditioning PT eval Hx Covid 19 infx recent, repeat is negative Hypothyroidism Levothyroixne DVT PPx Lovenox The patient will need hospital stay pending guardianship and safe discharge plan Quality Stroke Does the patient have a stroke diagnosis?: No VTE Prior VTE?: No VTE Risk Level:: Medical - moderate - high VTE Device Contraindication: Treatment Not Indicated VTE Drug Contraindication: N/A - Med Ordered
[2023-10-19] MEDS: Enoxaparin Sodium 40 MG/0.4 ML SYRINGE SUBCUT (13:21)
[2023-10-19 15:41] VITALS: BP 142/64; PULSE 98; RESP 18; TEMP 36.6; O2SAT 96
--- NOTE | 2023-10-19 16:54 | PM.PSYCN ---
History of Present Illness Date of Service: 10/19/23 Chief Complaint: Capacity to choose HCP Reason for Consult: Capacity to choose HCP Requesting physician: Aline Mendez Sources of Information: patient interviewed and chart reviewed HPI Narrative: 73 yo female, history of hypothyroidism, anxiety, admitted with COVID 19, weakness, confusion. Seen for capacity eval 10/14 and found to lack capacity. Today, team requests capacity to choose a HCP. Pt recovering from hypernatremia, metabolic encephalopathy, physical deconditioning. Team report she is close to her baseline. Pt seen in her room. Her primary RN joined our discussion. She states she is not interested in meeting with psychiatry. She talks of a wedding, cocoon, [place], bridezilla, and leaving something behind, her virginity. She is confused, animated and tangential. She is unable to focus on an assessment for evaluation of capacity for choice of HCP. She lacks capacity to give informed consent or discuss the meaning of giving another authority through advanced directives. She is unable to process consistently appropriateness of choice. Medical Evaluation Reviewed: Yes Review of Systems Review of Systems Yes Unobtainable due to mental status Reports behavioral changes, Reports confusion and Reports memory loss Psychiatric: Reports anxiety, Reports behavioral changes, Reports confusion, Reports difficulty concentrating and Reports memory loss [facility] Medical History Hypothyroid Narrative: COVID- 19 Anxiety Diagnostics Vital Signs (24Hr): Vital Signs - 24 hr 10/18/23 19:33 10/19/23 03:19 10/19/23 08:00 Temperature 96.9 F 98.0 F 98.4 F Pulse Rate 88 90 93 Respiratory Rate 18 17 18 Blood Pressure 110/51 L 126/59 L 129/62 Pulse Oximetry 99 96 96 Oxygen Delivery Method Room Air Room Air Room Air 10/19/23 15:41 Temperature 98 F Pulse Rate 98 Respiratory Rate 18 Blood Pressure 142/64 H Pulse Oximetry 96 Oxygen Delivery Method Room Air BMI result Body Mass Index 20.5 Labs 10/14/23 13:09 10/16/23 05:55 Imaging Radiology Impressions: ITS Impressions Cervical Spine CT 10/08/23 14:22 IMPRESSION: 1. No acute intracranial process seen. 2. There is no acute fracture, dislocation or subluxation in cervical spine. There are degenerative disc changes C3-C4 and C4-C5 disc levels with ventral and posterior spondylosis. Head CT 10/08/23 14:22 IMPRESSION: 1. No acute intracranial process seen. 2. There is no acute fracture, dislocation or subluxation in cervical spine. There are degenerative disc changes C3-C4 and C4-C5 disc levels with ventral and posterior spondylosis. Chest X-Ray 10/08/23 16:00 IMPRESSION: 1. Increased interstitial markings in both lungs without acute consolidation or pleural effusion. 2. Small left upper lobe nodules. Recommend CT correlation. Mental Status Exam Mental Status Exam Patient Appearance: Fatigued Patient Orientation: Person Level of Consciousness: Disoriented, Restless and Alert Patient Behavior: Guarded, Talkative, Suspicious, Restless, Anxious, Resistive to Care, Avoidant, Distractible, Confused and Good Eye Contact Mood Description: Suspicious, Anxious, Nervous, Apprehensive and Expansive Affect Description: Suspicious, Anxious, Nervous, Apprehensive and Expansive Patient Cognition Impaired: Yes Ability to Follow Directions: Fair Speech Pattern: Spontaneous Speech, Rambling, Cofabulation and Animated Memory Description: Remote Impaired Delusions: Present Thought Process: Disoriented, Illogical, Distracted, Evasive and Confusion Thought Content: positive for Flight of Ideas, positive for Loose Associations, positive for Tangential and positive for Disorganized Depressive Symptoms: Increased Anxiety and Increased Fatigue Abnormal Motor Activity Signs and Symptoms: Restlessness Judgement: Poor Medications Medications Current Medications Acetaminophen (Acetaminophen 325 Mg Tablet) 650 mg PO Q6H PRN PRN Reason: Pain, Mild (Pain Scale 1-3) Enoxaparin Sodium (Enoxaparin Sodium 40 Mg/0.4 Ml Syringe) 40 mg SUBCUT Q24H [facility] Last Admin: 10/19/23 13:21 Dose: 40 mg Fluticasone Propionate (Fluticasone Propionate Nasal 16 Gm [place]) 2 spray NOSTRIL-B DAILY [facility] Last Admin: 10/19/23 08:38 Dose: Not Given Levothyroxine Sodium (Levothyroxine Sodium 75 Mcg Tablet) 75 mcg PO DAILY@0630 [facility] Last Admin: 10/19/23 06:25 Dose: 75 mcg Ondansetron HCl (Ondansetron Hcl 4 Mg/2 Ml Vial) 4 mg IVPUSH Q8H PRN PRN Reason: Nausea and Vomiting Sodium Chloride (0.9 % Sodium Chloride Flush 3 Ml Syringe) 3 ml IVFLUSH QSHIFT [facility] Last Admin: 10/19/23 16:22 Dose: 3 ml Trihexyphenidyl HCl (Trihexyphenidyl Hcl 2 Mg Tablet) 1 mg PO BID [facility] Last Admin: 10/19/23 08:38 Dose: 1 mg Allergies Allergies Allergy/AdvReac Type Severity Reaction Status Date / Time No Known Allergies Allergy Verified 10/08/23 12:40 [No Known Allergies*] Assessment & Plan Assessment & Plan (1) Cognitive decline: Status: Acute Code(s): R41.89 - Other symptoms and signs involving cognitive functions and awareness (2) Delirium: Status: Acute Code(s): R41.0 - Disorientation, unspecified (3) COVID-19: Status: Acute Code(s): U07.1 - COVID-19 Plan 73 yo female, history of hypothyroidism, anxiety. Admitted for COVID-19, weakness, confusion, hypernatremia, metabolic encephalopathy, delirium,physical deconditioning. Capacity evaluation to choose a health care proxy requested. Pt, at the time of this evaluation is unable to comprehend the meaning of giving another authority through advanced directives or process consistency of choice. Suggest continuation of the pursuit of guardianship. Total time managing care of this patient today ____ minutes. Informed Consent: does not understand
[2023-10-19] MEDS: QUEtiapine Fumarate 25 MG TABLET PO (17:47)
[2023-10-19 20:00] VITALS: BP 131/60; PULSE 76; RESP 18; TEMP 36.6; O2SAT 97
[2023-10-19] MEDS: Acetaminophen 325 MG TABLET 650 MG PO (20:41)
[2023-10-20 03:05] VITALS: BP 134/57; PULSE 88; RESP 18; TEMP 36.3; O2SAT 97
[2023-10-20] MEDS: Levothyroxine Sodium 75 MCG TABLET PO (05:47)
[2023-10-20 08:00] VITALS: BP 168/66; PULSE 83; RESP 18; TEMP 36.4; O2SAT 92
[2023-10-20] MEDS: 0.9 % Sodium Chloride Flush 3 ML SYRINGE IVFLUSH ×2 (08:35→16:11)
[2023-10-20] MEDS: Fluticasone Propionate Nasal 16 GM SPRAY 2 SPRAY NOSTRIL-B (08:36)
--- NOTE | 2023-10-20 09:46 | HO.PM.IMPN ---
Subjective Subjective Date of Service: 10/20/23 Interval History: no complaints Physical Exam Vital Signs: Vital Signs: Last Vital Signs Temp 97.5 F 10/20/23 08:00 Pulse 83 10/20/23 08:00 Resp 18 10/20/23 08:00 BP 168/66 H 10/20/23 08:00 Pulse Ox 92 10/20/23 08:00 O2 Del Method Room Air 10/20/23 08:00 BMI result Body Mass Index 20.5 Const: Other: Constitutional : Awake, interactive, not in distress Neck : Normal inspection, Supple Cardiovascular : RRR, no JVP Respiratory : good bilateral air entry, no wheezes or rhonchi Gastrointestinal: soft, lax, Non tender Skin : Warm, Dry Neurological : Alert & oriented to self and place but otherwise confused and can get easily distracted, having tremors, No focal deficit Objective Data Active Medications Acetaminophen (Acetaminophen 325 Mg Tablet) 650 mg PO Q6H PRN PRN Reason: Pain, Mild (Pain Scale 1-3) Last Admin: 10/19/23 20:41 Dose: 650 mg Documented By: ERIKA Enoxaparin Sodium (Enoxaparin Sodium 40 Mg/0.4 Ml Syringe) 40 mg SUBCUT Q24H [facility] Last Admin: 10/19/23 13:21 Dose: 40 mg Documented By: CHILO Fluticasone Propionate (Fluticasone Propionate Nasal 16 Gm [place]) 2 spray NOSTRIL-B DAILY [facility] Last Admin: 10/20/23 08:36 Dose: 2 spray Documented By: DAREK Levothyroxine Sodium (Levothyroxine Sodium 75 Mcg Tablet) 75 mcg PO DAILY@0630 [facility] Last Admin: 10/20/23 05:47 Dose: 75 mcg Documented By: KACIE Ondansetron HCl (Ondansetron Hcl 4 Mg/2 Ml Vial) 4 mg IVPUSH Q8H PRN PRN Reason: Nausea and Vomiting Sodium Chloride (0.9 % Sodium Chloride Flush 3 Ml Syringe) 3 ml IVFLUSH QSHIFT [facility] Last Admin: 10/20/23 08:35 Dose: 3 ml Documented By: DAREK Trihexyphenidyl HCl (Trihexyphenidyl Hcl 2 Mg Tablet) 1 mg PO BID [facility] Last Admin: 10/20/23 08:31 Dose: 1 mg Documented By: EVAARTB Labs 10/14/23 13:09 10/16/23 05:55 Assessment and Plan (1) Cognitive decline: Status: Acute Plan 73F PMH Hypothyroid, anxiety who presented to ED 10/06/23 with AMS. found to be Covid19 positive at that point with increased weakness and confusion. was awaiting placement in ED and on 10/14/23 became more confused, sodium, 153. Metabolic encephalopathy 2/2 acute Hypernatremia on admission, resolved mental status back to baseline as Na level normalized Psych evaluation appreciated, patient does not have capacity to appoint hcp, will need guardian Physical deconditioning PT eval reccomending ltc Hx Covid 19 infx recent, repeat is negative Hypothyroidism Levothyroixne DVT PPx Lovenox The patient will need hospital stay pending guardianship and safe discharge plan Quality Stroke Does the patient have a stroke diagnosis?: No VTE Prior VTE?: No VTE Risk Level:: Medical - moderate - high VTE Device Contraindication: Treatment Not Indicated VTE Drug Contraindication: N/A - Med Ordered
--- NOTE | 2023-10-20 13:12 | MHC.CM.PN ---
EMR REVIEWED- PER PSYCH NOTE, DOES NOT HAVE THE ABILITY TO NAME A HCP. CM DIRECTOR JOSHUA FINCH RN NOTIFIED AND GUARDIANSHIP PROCESS UNDERWAY. CM WILL CONTINUE TO FOLLOW FOR ANY CHANGE IN DC NEEDS/PLAN
[2023-10-20 15:03] VITALS: BP 145/63; PULSE 93; RESP 18; TEMP 37.1; O2SAT 99
[2023-10-20 19:09] VITALS: BP 129/86; PULSE 77; RESP 18; TEMP 36.1; O2SAT 99
[2023-10-21 04:00] VITALS: BP 108/51; PULSE 82; RESP 16; TEMP 36.6; O2SAT 96
[2023-10-21 06:55] VITALS: BP 135/60; PULSE 93; RESP 16; TEMP 36.6; O2SAT 98
--- NOTE | 2023-10-21 08:43 | HO.PM.IMPN ---
Subjective Subjective Date of Service: 10/21/23 Interval History: no complaints Physical Exam Vital Signs: Vital Signs: Last Vital Signs Temp 98 F 10/21/23 06:55 Pulse 93 10/21/23 06:55 Resp 16 10/21/23 06:55 BP 135/60 10/21/23 06:55 Pulse Ox 98 10/21/23 06:55 O2 Del Method Room Air 10/21/23 06:55 BMI result Body Mass Index 20.5 Const: Other: Constitutional : Awake, interactive, not in distress Neck : Normal inspection, Supple Cardiovascular : RRR, no JVP Respiratory : good bilateral air entry, no wheezes or rhonchi Gastrointestinal: soft, lax, Non tender Skin : Warm, Dry Neurological : Alert & oriented to self and place but otherwise confused and can get easily distracted, having tremors, No focal deficit Objective Data Active Medications Acetaminophen (Acetaminophen 325 Mg Tablet) 650 mg PO Q6H PRN PRN Reason: Pain, Mild (Pain Scale 1-3) Last Admin: 10/19/23 20:41 Dose: 650 mg Documented By: ERIKA Enoxaparin Sodium (Enoxaparin Sodium 40 Mg/0.4 Ml Syringe) 40 mg SUBCUT Q24H [facility] Last Admin: 10/20/23 12:20 Dose: Not Given Documented By: DAREK Non-Admin Reason: Patient Refused Fluticasone Propionate (Fluticasone Propionate Nasal 16 Gm [place]) 2 spray NOSTRIL-B DAILY [facility] Last Admin: 10/21/23 08:09 Dose: Not Given Documented By: DALIA Non-Admin Reason: Patient Refused Levothyroxine Sodium (Levothyroxine Sodium 75 Mcg Tablet) 75 mcg PO DAILY@0630 [facility] Last Admin: 10/21/23 06:13 Dose: 75 mcg Documented By: YASMINE Ondansetron HCl (Ondansetron Hcl 4 Mg/2 Ml Vial) 4 mg IVPUSH Q8H PRN PRN Reason: Nausea and Vomiting Sodium Chloride (0.9 % Sodium Chloride Flush 3 Ml Syringe) 3 ml IVFLUSH QSHIFT [facility] Last Admin: 10/21/23 08:07 Dose: 3 ml Documented By: DALIA Trihexyphenidyl HCl (Trihexyphenidyl Hcl 2 Mg Tablet) 1 mg PO BID [facility] Last Admin: 10/21/23 08:07 Dose: 1 mg Documented By: DALIA Labs 10/14/23 13:09 10/16/23 05:55 Assessment and Plan (1) Cognitive decline: Status: Acute Plan 73F PMH Hypothyroid, anxiety who presented to ED 10/06/23 with AMS. found to be Covid19 positive at that point with increased weakness and confusion. was awaiting placement in ED and on 10/14/23 became more confused, sodium, 153. Metabolic encephalopathy 2/2 acute Hypernatremia on admission, resolved mental status back to baseline as Na level normalized Psych evaluation appreciated, patient does not have capacity to appoint hcp, will need guardian Physical deconditioning PT eval reccomending ltc Hx Covid 19 infx recent, repeat is negative Hypothyroidism Levothyroixne DVT PPx Lovenox The patient will need hospital stay pending guardianship and safe discharge plan Quality Stroke Does the patient have a stroke diagnosis?: No VTE Prior VTE?: No VTE Risk Level:: Medical - moderate - high VTE Device Contraindication: Treatment Not Indicated VTE Drug Contraindication: N/A - Med Ordered
[2023-10-21 15:59] VITALS: BP 131/60; PULSE 88; RESP 18; TEMP 36.6; O2SAT 98
[2023-10-21 20:00] VITALS: BP 144/67; PULSE 105; RESP 18; TEMP 36; O2SAT 97
[2023-10-22 03:43] VITALS: BP 136/62; PULSE 87; RESP 16; TEMP 36.5; O2SAT 96
[2023-10-22 06:54] VITALS: BP 143/66; PULSE 94; RESP 16; TEMP 36.1; O2SAT 96
--- NOTE | 2023-10-22 09:55 | HO.PM.IMPN ---
Subjective Subjective Date of Service: 10/22/23 Interval History: no complaints Physical Exam Vital Signs: Vital Signs: Last Vital Signs Temp 97 F 10/22/23 06:54 Pulse 94 10/22/23 06:54 Resp 16 10/22/23 06:54 BP 143/66 H 10/22/23 06:54 Pulse Ox 96 10/22/23 06:54 O2 Del Method Room Air 10/22/23 06:54 BMI result Body Mass Index 20.5 Const: Other: Constitutional : Awake, interactive, not in distress Neck : Normal inspection, Supple Cardiovascular : RRR, no JVP Respiratory : good bilateral air entry, no wheezes or rhonchi Gastrointestinal: soft, lax, Non tender Skin : Warm, Dry Neurological : Alert & oriented to self and place but otherwise confused and can get easily distracted, having tremors, No focal deficit Objective Data Active Medications Acetaminophen (Acetaminophen 325 Mg Tablet) 650 mg PO Q6H PRN PRN Reason: Pain, Mild (Pain Scale 1-3) Last Admin: 10/19/23 20:41 Dose: 650 mg Documented By: ERIKA Enoxaparin Sodium (Enoxaparin Sodium 40 Mg/0.4 Ml Syringe) 40 mg SUBCUT Q24H [facility] Last Admin: 10/21/23 12:05 Dose: Not Given Documented By: DALIA Non-Admin Reason: Patient Refused Fluticasone Propionate (Fluticasone Propionate Nasal 16 Gm [place]) 2 spray NOSTRIL-B DAILY [facility] Last Admin: 10/22/23 08:09 Dose: Not Given Documented By: DALIA Non-Admin Reason: Patient Refused Levothyroxine Sodium (Levothyroxine Sodium 75 Mcg Tablet) 75 mcg PO DAILY@0630 [facility] Last Admin: 10/22/23 05:51 Dose: 75 mcg Documented By: YASMINE Ondansetron HCl (Ondansetron Hcl 4 Mg/2 Ml Vial) 4 mg IVPUSH Q8H PRN PRN Reason: Nausea and Vomiting Sodium Chloride (0.9 % Sodium Chloride Flush 3 Ml Syringe) 3 ml IVFLUSH QSHIFT [facility] Last Admin: 10/22/23 08:06 Dose: 3 ml Documented By: DALIA Trihexyphenidyl HCl (Trihexyphenidyl Hcl 2 Mg Tablet) 1 mg PO BID [facility] Last Admin: 10/22/23 08:06 Dose: 1 mg Documented By: DALIA Labs 10/14/23 13:09 10/16/23 05:55 Assessment and Plan (1) Cognitive decline: Status: Acute Plan 73F PMH Hypothyroid, anxiety who presented to ED 10/06/23 with AMS. found to be Covid19 positive at that point with increased weakness and confusion. was awaiting placement in ED and on 10/14/23 became more confused, sodium, 153. Metabolic encephalopathy 2/2 acute Hypernatremia on admission, resolved mental status back to baseline as Na level normalized Psych evaluation appreciated, patient does not have capacity to appoint hcp, will need guardian Physical deconditioning PT eval reccomending ltc Hx Covid 19 infx recent, repeat is negative Hypothyroidism Levothyroixne DVT PPx Lovenox The patient will need hospital stay pending guardianship and safe discharge plan Quality Stroke Does the patient have a stroke diagnosis?: No VTE Prior VTE?: No VTE Risk Level:: Medical - moderate - high VTE Device Contraindication: Treatment Not Indicated VTE Drug Contraindication: N/A - Med Ordered
--- NOTE | 2023-10-22 12:27 | MHC.CM.PN ---
EMR reviewed. Awaiting guardianship. CM will continue to follow.
[2023-10-22 17:26] VITALS: BP 156/64; PULSE 100; RESP 16; TEMP 36.8; O2SAT 97
[2023-10-22 19:33] VITALS: BP 150/74; PULSE 69; RESP 16; TEMP 36.2; O2SAT 98
[2023-10-23 04:00] VITALS: BP 143/66; PULSE 104; RESP 16; TEMP 36.9; O2SAT 96
[2023-10-23 07:08] VITALS: BP 133/62; PULSE 104; RESP 18; TEMP 36.8; O2SAT 96
--- NOTE | 2023-10-23 08:49 | MHC.CM.PN ---
XIAO RECEIVED A CALL FROM PTS S/O, JAKOB FINCH WHO IS CURRENTLY IN STR AT [facility] HE ASKED MULTIPLE TIMES WHY THE PT WAS MORE CONFUSED THAT USUAL AND IF SHE WOULD GET BETTER HE REPORTS HIS SISTER IS HIS POA AND HAS ACCESS TO THEIR JOINT ACCOUNTS SO SHE CAN ACCESS MONEY XIAO EXPLAINED THE MONEY IS NOT THE CURRENT ISSUE, IT IS THE FACT THAT THERE IS NO ONE TO SPEAK FOR THE PT BECAUSE SHE HAS NO HCP JAKOB ASKED WHY PT COULD NOT SPEAK FOR HERSELF, XIAO EXPLAINED SHE IS TOO CONFUSED TO DO SO HE REPORTS HE THINKS THE PT DOES BETTER AT HOME WITH HIM IN A FAMILIAR ENVIRONMENT HE STATES HE HAS BEEN MAKING PROGRESS AND HOPES TO RETURN HOME SOON HE REPORTS HE WOULD LIKE THE PT TO RETURN HOME WITH HIM BUT UNDERSTANDS SHE MAY NOT IMPROVE HE STATES HE KNOWS IF SHE DOES NOT IMPROVE ONCE HOME, SHE WILL HAVE TO RETURN TO THE HOSPITAL FOR PLACEMENT
--- NOTE | 2023-10-23 10:17 | HO.PM.IMPN ---
Subjective Subjective Date of Service: 10/23/23 Interval History: no complaints Physical Exam Vital Signs: Vital Signs: Last Vital Signs Temp 98.2 F 10/23/23 07:08 Pulse 104 H 10/23/23 07:08 Resp 18 10/23/23 07:08 BP 133/62 10/23/23 07:08 Pulse Ox 96 10/23/23 07:08 O2 Del Method Room Air 10/23/23 07:08 BMI result Body Mass Index 20.5 Const: Other: Constitutional : Awake, interactive, not in distress Neck : Normal inspection, Supple Cardiovascular : RRR, no JVP Respiratory : good bilateral air entry, no wheezes or rhonchi Gastrointestinal: soft, lax, Non tender Skin : Warm, Dry Neurological : Alert & oriented to self and place but otherwise confused and can get easily distracted, having tremors, No focal deficit Objective Data Active Medications Acetaminophen (Acetaminophen 325 Mg Tablet) 650 mg PO Q6H PRN PRN Reason: Pain, Mild (Pain Scale 1-3) Last Admin: 10/19/23 20:41 Dose: 650 mg Documented By: ERIKA Enoxaparin Sodium (Enoxaparin Sodium 40 Mg/0.4 Ml Syringe) 40 mg SUBCUT Q24H [facility] Last Admin: 10/22/23 13:50 Dose: Not Given Documented By: DALIA Non-Admin Reason: Patient Refused Fluticasone Propionate (Fluticasone Propionate Nasal 16 Gm [place]) 2 spray NOSTRIL-B DAILY [facility] Last Admin: 10/23/23 09:27 Dose: Not Given Documented By: JENNIFER Non-Admin Reason: Patient Refused Levothyroxine Sodium (Levothyroxine Sodium 75 Mcg Tablet) 75 mcg PO DAILY@0630 [facility] Last Admin: 10/23/23 06:00 Dose: 75 mcg Documented By: PAWAN Ondansetron HCl (Ondansetron Hcl 4 Mg/2 Ml Vial) 4 mg IVPUSH Q8H PRN PRN Reason: Nausea and Vomiting Sodium Chloride (0.9 % Sodium Chloride Flush 3 Ml Syringe) 3 ml IVFLUSH QSHIFT [facility] Last Admin: 10/23/23 09:26 Dose: Not Given Documented By: JENNIFER Non-Admin Reason: Patient Refused Trihexyphenidyl HCl (Trihexyphenidyl Hcl 2 Mg Tablet) 1 mg PO BID [facility] Last Admin: 10/23/23 09:27 Dose: Not Given Documented By: JENNIFER Non-Admin Reason: Patient Refused Labs 10/14/23 13:09 10/16/23 05:55 Assessment and Plan (1) Cognitive decline: Status: Acute Plan 73F PMH Hypothyroid, anxiety who presented to ED 10/06/23 with AMS. found to be Covid19 positive at that point with increased weakness and confusion. was awaiting placement in ED and on 10/14/23 became more confused, sodium, 153. Metabolic encephalopathy 2/2 acute Hypernatremia on admission, resolved mental status back to baseline as Na level normalized Psych evaluation appreciated, patient does not have capacity to appoint hcp, will need guardian did have one episode of agitation 10/22/23, responded to low dose zyprexa Physical deconditioning PT eval reccomending ltc Hx Covid 19 infx recent, repeat is negative Hypothyroidism Levothyroixne DVT PPx Lovenox The patient will need hospital stay pending guardianship and safe discharge plan Quality Stroke Does the patient have a stroke diagnosis?: No VTE Prior VTE?: No VTE Risk Level:: Medical - moderate - high VTE Device Contraindication: Treatment Not Indicated VTE Drug Contraindication: N/A - Med Ordered
[2023-10-23 15:14] VITALS: BP 140/65; PULSE 99; RESP 18; TEMP 36.6; O2SAT 97
[2023-10-23 19:23] VITALS: BP 141/57; PULSE 95; RESP 18; TEMP 36.4; O2SAT 100
[2023-10-24 00:29] VITALS: BP 157/70; PULSE 97; RESP 18; TEMP 36.7; O2SAT 97
[2023-10-24 04:00] VITALS: BP 122/60; PULSE 84; RESP 18; TEMP 36.4; O2SAT 97
[2023-10-24 08:00] VITALS: BP 140/65; PULSE 97; RESP 18; TEMP 36.4; O2SAT 96
--- NOTE | 2023-10-24 09:26 | HO.PM.IMPN ---
Subjective Subjective Date of Service: 10/24/23 Interval History: no complaints Physical Exam Vital Signs: Vital Signs: Last Vital Signs Temp 97.6 F 10/24/23 08:00 Pulse 97 10/24/23 08:00 Resp 18 10/24/23 08:00 BP 140/65 H 10/24/23 08:00 Pulse Ox 96 10/24/23 08:00 O2 Del Method Room Air 10/24/23 08:00 BMI result Body Mass Index 20.5 Const: Other: Constitutional : Awake, interactive, not in distress Neck : Normal inspection, Supple Cardiovascular : RRR, no JVP Respiratory : good bilateral air entry, no wheezes or rhonchi Gastrointestinal: soft, lax, Non tender Skin : Warm, Dry Neurological : Alert & oriented to self and place but otherwise confused and can get easily distracted, having tremors, No focal deficit Objective Data Active Medications Acetaminophen (Acetaminophen 325 Mg Tablet) 650 mg PO Q6H PRN PRN Reason: Pain, Mild (Pain Scale 1-3) Last Admin: 10/23/23 15:19 Dose: 650 mg Documented By: JENNIFER Enoxaparin Sodium (Enoxaparin Sodium 40 Mg/0.4 Ml Syringe) 40 mg SUBCUT Q24H [facility] Last Admin: 10/23/23 12:05 Dose: Not Given Documented By: JENNIFER Non-Admin Reason: Patient Refused Fluticasone Propionate (Fluticasone Propionate Nasal 16 Gm [place]) 2 spray NOSTRIL-B DAILY [facility] Last Admin: 10/24/23 08:29 Dose: Not Given Documented By: JENNIFER Non-Admin Reason: Patient Refused Levothyroxine Sodium (Levothyroxine Sodium 75 Mcg Tablet) 75 mcg PO DAILY@0630 [facility] Last Admin: 10/24/23 05:55 Dose: 75 mcg Documented By: PAWAN Ondansetron HCl (Ondansetron Hcl 4 Mg/2 Ml Vial) 4 mg IVPUSH Q8H PRN PRN Reason: Nausea and Vomiting Sodium Chloride (0.9 % Sodium Chloride Flush 3 Ml Syringe) 3 ml IVFLUSH QSHIFT [facility] Last Admin: 10/24/23 08:28 Dose: Not Given Documented By: JENNIFER Non-Admin Reason: Patient Refused Trihexyphenidyl HCl (Trihexyphenidyl Hcl 2 Mg Tablet) 1 mg PO BID [facility] Last Admin: 10/24/23 08:23 Dose: 1 mg Documented By: JENNIFER Labs 10/14/23 13:09 10/16/23 05:55 Assessment and Plan (1) Cognitive decline: Status: Acute Plan 73F PMH Hypothyroid, anxiety who presented to ED 10/06/23 with AMS. found to be Covid19 positive at that point with increased weakness and confusion. was awaiting placement in ED and on 10/14/23 became more confused, sodium, 153. Metabolic encephalopathy 2/2 acute Hypernatremia on admission, resolved mental status back to baseline as Na level normalized Psych evaluation appreciated, patient does not have capacity to appoint hcp, will need guardian Physical deconditioning PT eval reccomending ltc Hx Covid 19 infx recent, repeat is negative Hypothyroidism Levothyroixne DVT PPx Lovenox The patient will need hospital stay pending guardianship and safe discharge plan Quality Stroke Does the patient have a stroke diagnosis?: No VTE Prior VTE?: No VTE Risk Level:: Medical - moderate - high VTE Device Contraindication: Treatment Not Indicated VTE Drug Contraindication: N/A - Med Ordered
[2023-10-24 16:00] VITALS: BP 140/70; PULSE 92; RESP 18; TEMP 36.3; O2SAT 96
[2023-10-24 20:00] VITALS: BP 139/65; PULSE 89; RESP 20; TEMP 36.3; O2SAT 98
[2023-10-25 03:53] VITALS: BP 144/65; PULSE 96; RESP 16; TEMP 36.4; O2SAT 95
[2023-10-25 07:49] VITALS: BP 130/63; PULSE 78; RESP 16; TEMP 36.5; O2SAT 98
--- NOTE | 2023-10-25 08:21 | MHC.CM.PN ---
PT AWAITING GUARDIANSHIP AND LTC PLACEMENT SHE WILL NEED A MH MAXIM ONCE CONSERVATOR IS IN PLACE
--- NOTE | 2023-10-25 09:02 | HO.PM.IMPN ---
Subjective Subjective Date of Service: 10/25/23 Interval History: no complaints Physical Exam Vital Signs: Vital Signs: Last Vital Signs Temp 97.7 F 10/25/23 07:49 Pulse 78 10/25/23 07:49 Resp 16 10/25/23 07:49 BP 130/63 10/25/23 07:49 Pulse Ox 98 10/25/23 07:49 O2 Del Method Room Air 10/25/23 07:49 BMI result Body Mass Index 20.5 Const: Other: Constitutional : Awake, interactive, not in distress Neck : Normal inspection, Supple Cardiovascular : RRR, no JVP Respiratory : good bilateral air entry, no wheezes or rhonchi Gastrointestinal: soft, lax, Non tender Skin : Warm, Dry Neurological : Alert & oriented to self and place but otherwise confused and can get easily distracted, having tremors, No focal deficit Objective Data Active Medications Acetaminophen (Acetaminophen 325 Mg Tablet) 650 mg PO Q6H PRN PRN Reason: Pain, Mild (Pain Scale 1-3) Last Admin: 10/23/23 15:19 Dose: 650 mg Documented By: JENNIFER Enoxaparin Sodium (Enoxaparin Sodium 40 Mg/0.4 Ml Syringe) 40 mg SUBCUT Q24H [facility] Last Admin: 10/24/23 12:56 Dose: Not Given Documented By: JENNIFER Non-Admin Reason: Patient Refused Fluticasone Propionate (Fluticasone Propionate Nasal 16 Gm [place]) 2 spray NOSTRIL-B DAILY [facility] Last Admin: 10/24/23 08:29 Dose: Not Given Documented By: JENNIFER Non-Admin Reason: Patient Refused Levothyroxine Sodium (Levothyroxine Sodium 75 Mcg Tablet) 75 mcg PO DAILY@0630 [facility] Last Admin: 10/25/23 05:45 Dose: 75 mcg Documented By: DALIA Ondansetron HCl (Ondansetron Hcl 4 Mg/2 Ml Vial) 4 mg IVPUSH Q8H PRN PRN Reason: Nausea and Vomiting Sodium Chloride (0.9 % Sodium Chloride Flush 3 Ml Syringe) 3 ml IVFLUSH QSHIFT [facility] Last Admin: 10/24/23 23:24 Dose: Not Given Documented By: DALIA Non-Admin Reason: Patient Refused Trihexyphenidyl HCl (Trihexyphenidyl Hcl 2 Mg Tablet) 1 mg PO BID [facility] Last Admin: 10/24/23 20:23 Dose: 1 mg Documented By: DALIA Labs 10/14/23 13:09 10/16/23 05:55 Labs: Laboratory Results - last 24 hr 10/24/23 16:31 POC Glucose 113 Assessment and Plan (1) Cognitive decline: Status: Acute Plan 73F PMH Hypothyroid, anxiety who presented to ED 10/06/23 with AMS. found to be Covid19 positive at that point with increased weakness and confusion. was awaiting placement in ED and on 10/14/23 became more confused, sodium, 153. Metabolic encephalopathy 2/2 acute Hypernatremia on admission, resolved mental status back to baseline as Na level normalized Psych evaluation appreciated, patient does not have capacity to appoint hcp, will need guardian Physical deconditioning PT eval reccomending ltc Hx Covid 19 infx recent, repeat is negative Hypothyroidism Levothyroixne DVT PPx Lovenox The patient will need hospital stay pending guardianship and safe discharge plan Quality Stroke Does the patient have a stroke diagnosis?: No VTE Prior VTE?: No VTE Risk Level:: Medical - moderate - high VTE Device Contraindication: Treatment Not Indicated VTE Drug Contraindication: N/A - Med Ordered
[2023-10-25 15:12] VITALS: BP 134/60; PULSE 79; RESP 16; TEMP 36.3; O2SAT 97
[2023-10-25 19:55] VITALS: BP 158/67; PULSE 102; RESP 16; TEMP 36.3; O2SAT 97
[2023-10-26 02:52] VITALS: BP 145/67; PULSE 84; RESP 18; TEMP 36.2; O2SAT 99
[2023-10-26] MEDS: Levothyroxine Sodium 75 MCG TABLET PO (06:30)
[2023-10-26 07:44] VITALS: BP 127/60; PULSE 84; RESP 18; TEMP 36.3; O2SAT 96
--- NOTE | 2023-10-26 08:52 | HO.PM.IMPN ---
Subjective Subjective Date of Service: 10/26/23 Interval History: no complaints Physical Exam Vital Signs: Vital Signs: Last Vital Signs Temp 97.4 F 10/26/23 07:44 Pulse 84 10/26/23 07:44 Resp 18 10/26/23 07:44 BP 127/60 10/26/23 07:44 Pulse Ox 96 10/26/23 07:44 O2 Del Method Room Air 10/26/23 07:44 BMI result Body Mass Index 20.5 Const: Other: Constitutional : Awake, interactive, not in distress Neck : Normal inspection, Supple Cardiovascular : RRR, no JVP Respiratory : good bilateral air entry, no wheezes or rhonchi Gastrointestinal: soft, lax, Non tender Skin : Warm, Dry Neurological : Alert & oriented to self and place but otherwise confused and can get easily distracted, having tremors, No focal deficit Objective Data Active Medications Acetaminophen (Acetaminophen 325 Mg Tablet) 650 mg PO Q6H PRN PRN Reason: Pain, Mild (Pain Scale 1-3) Last Admin: 10/23/23 15:19 Dose: 650 mg Documented By: JENNIFER Enoxaparin Sodium (Enoxaparin Sodium 40 Mg/0.4 Ml Syringe) 40 mg SUBCUT Q24H [facility] Last Admin: 10/25/23 14:24 Dose: Not Given Documented By: JOHNSON Non-Admin Reason: Patient Refused Fluticasone Propionate (Fluticasone Propionate Nasal 16 Gm [place]) 2 spray NOSTRIL-B DAILY [facility] Last Admin: 10/25/23 12:02 Dose: 2 spray Documented By: JOHNSON Levothyroxine Sodium (Levothyroxine Sodium 75 Mcg Tablet) 75 mcg PO DAILY@0630 [facility] Last Admin: 10/26/23 06:30 Dose: 75 mcg Documented By: SKY Ondansetron HCl (Ondansetron Hcl 4 Mg/2 Ml Vial) 4 mg IVPUSH Q8H PRN PRN Reason: Nausea and Vomiting Sodium Chloride (0.9 % Sodium Chloride Flush 3 Ml Syringe) 3 ml IVFLUSH QSHIFT [facility] Last Admin: 10/26/23 00:50 Dose: Not Given Documented By: SKY Non-Admin Reason: No Access Trihexyphenidyl HCl (Trihexyphenidyl Hcl 2 Mg Tablet) 1 mg PO BID [facility] Last Admin: 10/25/23 20:24 Dose: Not Given Documented By: BERENICE Non-Admin Reason: Patient Refused Labs 10/14/23 13:09 10/16/23 05:55 Assessment and Plan (1) Cognitive decline: Status: Acute Plan 73F PMH Hypothyroid, anxiety who presented to ED 10/06/23 with AMS. found to be Covid19 positive at that point with increased weakness and confusion. was awaiting placement in ED and on 10/14/23 became more confused, sodium, 153. Metabolic encephalopathy 2/2 acute Hypernatremia on admission, resolved mental status back to baseline as Na level normalized Psych evaluation appreciated, patient does not have capacity to appoint hcp, will need guardian Physical deconditioning PT eval reccomending ltc Hx Covid 19 infx recent, repeat is negative Hypothyroidism Levothyroixne DVT PPx Lovenox The patient will need hospital stay pending guardianship and safe discharge plan Quality Stroke Does the patient have a stroke diagnosis?: No VTE Prior VTE?: No VTE Risk Level:: Medical - moderate - high VTE Device Contraindication: Treatment Not Indicated VTE Drug Contraindication: N/A - Med Ordered
[2023-10-26] MEDS: Trihexyphenidyl HCL 2 MG TABLET 1 MG PO ×2 (09:24→21:58)
[2023-10-26] MEDS: Acetaminophen 325 MG TABLET 650 MG PO (09:30)
[2023-10-26] MEDS: Fluticasone Propionate Nasal 16 GM SPRAY 2 SPRAY NOSTRIL-B (09:33)
--- NOTE | 2023-10-26 12:36 | PC.NURSE ---
Per MD Leo no IV access necessary at this point.
[2023-10-26] MEDS: OLANZapine 2.5 MG TABLET PO (13:17)
[2023-10-26 16:00] VITALS: BP 118/58; PULSE 74; RESP 18; TEMP 36.6; O2SAT 98
[2023-10-26 20:00] VITALS: BP 164/70; PULSE 78; RESP 16; TEMP 36.7; O2SAT 100
[2023-10-26] MEDS: OLANZapine 10 MG VIAL 5 MG IM (22:33)
[2023-10-27 03:31] VITALS: TEMP 36.7
--- NOTE | 2023-10-27 03:47 | PC.NURSE ---
10/26: Assumed care of patient at 19:15. Pt is A&Ox1 to self only. Hx dementia. Seen on s3, here pending CM/guardianship/long-term placement. Pt frequently anxious, agitated and rambling intrusive and non-sensical thoughts. Unable to redirect or reorient despite attempts at this and diversional activities. Patient resistive to care, verbally abusive and grabbing staff. Covering Dr. Coppola notified. Pt given IM zyprexa with +effect. Attempted to obtain scheduled vitals 03:30 this morning though pt refused and uncooperative; pt quickly verbally abusive, grabbing at staff and shouting Stop! Leave me alone. Get out. Go to hell when attempting to obtain vitals and perform incontinent care. Covering Dr. Everett John notified.
[2023-10-27] MEDS: OLANZapine 10 MG VIAL 5 MG IM (04:12)
[2023-10-27] MEDS: Levothyroxine Sodium 75 MCG TABLET PO (06:26)
--- NOTE | 2023-10-27 06:34 | PC.NURSE ---
Additional dose of IM zyprexa given for agitation @04:[address] Andres John order. +Effect. Pt more calm, took her levothyroxine without issue. Resting in bed appearing comfortable.
[2023-10-27 06:55] VITALS: BP 122/64; PULSE 72; RESP 17; TEMP 36.6; O2SAT 95
--- NOTE | 2023-10-27 11:08 | MHC.CM.PN ---
EMR REVIEWED. PER MD ROUNDS PATIENT AWAITING [facility] FOR PLACEMENT. CM WILL CONTINUE TO FOLLOW.
--- NOTE | 2023-10-27 11:27 | HO.PM.IMPN ---
Subjective Subjective Date of Service: 10/27/23 Interval History: Seen and evaluated this morning Feels comfortable denies any complaints Review of Systems Review of Systems: Yes all other systems are reviewed and are negative Physical Exam Vital Signs: Vital Signs: Last Vital Signs Temp 97.9 F 10/27/23 06:55 Pulse 72 10/27/23 06:55 Resp 17 10/27/23 06:55 BP 122/64 10/27/23 06:55 Pulse Ox 95 10/27/23 06:55 O2 Del Method Room Air 10/27/23 06:55 BMI result Body Mass Index 20.5 Const: Other: Constitutional : Awake, interactive, not in distress Neck : Normal inspection, Supple Cardiovascular : RRR, no JVP Respiratory : good bilateral air entry, no wheezes or rhonchi Gastrointestinal: soft, lax, Non tender Skin : Warm, Dry Neurological : Alert & oriented to self and place but otherwise confused and can get easily distracted, having tremors, No focal deficit Objective Data Active Medications Acetaminophen (Acetaminophen 325 Mg Tablet) 650 mg PO Q6H PRN PRN Reason: Pain, Mild (Pain Scale 1-3) Last Admin: 10/26/23 09:30 Dose: 650 mg Documented By: LYNDA Enoxaparin Sodium (Enoxaparin Sodium 40 Mg/0.4 Ml Syringe) 40 mg SUBCUT Q24H [facility] Last Admin: 10/26/23 14:16 Dose: Not Given Documented By: JOHNSON Non-Admin Reason: Patient Refused Fluticasone Propionate (Fluticasone Propionate Nasal 16 Gm [place]) 2 spray NOSTRIL-B DAILY [facility] Last Admin: 10/26/23 09:33 Dose: 2 spray Documented By: LYNDA Levothyroxine Sodium (Levothyroxine Sodium 75 Mcg Tablet) 75 mcg PO DAILY@0630 [facility] Last Admin: 10/27/23 06:26 Dose: 75 mcg Documented By: PUSHPA Ondansetron HCl (Ondansetron Hcl 4 Mg/2 Ml Vial) 4 mg IVPUSH Q8H PRN PRN Reason: Nausea and Vomiting Sodium Chloride (0.9 % Sodium Chloride Flush 3 Ml Syringe) 3 ml IVFLUSH QSHIFT [facility] Last Admin: 10/27/23 09:21 Dose: Not Given Documented By: EVERARDO Non-Admin Reason: No Access Trihexyphenidyl HCl (Trihexyphenidyl Hcl 2 Mg Tablet) 1 mg PO BID [facility] Last Admin: 10/26/23 21:58 Dose: 1 mg Documented By: PUSHPA Labs 10/14/23 13:09 10/16/23 05:55 Assessment and Plan (1) Cognitive decline: Status: Acute Plan 73F PMH Hypothyroid, anxiety who presented to ED 10/06/23 with AMS. found to be Covid19 positive at that point with increased weakness and confusion. was awaiting placement in ED and on 10/14/23 became more confused, sodium, 153. Metabolic encephalopathy 2/2 acute Hypernatremia on admission, resolved mental status back to baseline as Na level normalized Psych evaluation appreciated, patient does not have capacity to appoint hcp, will need guardian Physical deconditioning PT eval reccomending ltc Hx Covid 19 infx recent, repeat is negative Hypothyroidism Levothyroixne DVT PPx Lovenox The patient will need hospital stay pending guardianship and safe discharge plan Quality Stroke Does the patient have a stroke diagnosis?: No VTE Prior VTE?: No VTE Risk Level:: Medical - moderate - high VTE Device Contraindication: Treatment Not Indicated VTE Drug Contraindication: N/A - Med Ordered
[2023-10-27 15:34] VITALS: BP 135/60; PULSE 97; RESP 16; TEMP 37.1; O2SAT 95
[2023-10-27] MEDS: Trihexyphenidyl HCL 2 MG TABLET 1 MG PO (20:24)
[2023-10-28 04:00] VITALS: BP 160/67; PULSE 84; RESP 18; TEMP 36.1; O2SAT 100
[2023-10-28] MEDS: Levothyroxine Sodium 75 MCG TABLET PO (05:54)
[2023-10-28 08:00] VITALS: BP 132/61; PULSE 88; RESP 17; TEMP 36; O2SAT 98
[2023-10-28] MEDS: Trihexyphenidyl HCL 2 MG TABLET 1 MG PO ×2 (08:34→20:02)
[2023-10-28] MEDS: Acetaminophen 325 MG TABLET 650 MG PO (08:37)
--- NOTE | 2023-10-28 09:46 | P.PNIM_ITS ---
Subjective Subjective Date of Service: 10/28/23 Interval History: Seen and evaluated this morning Feels comfortable Confused denies any complaints Review of Systems Review of Systems: Yes all other systems are reviewed and are negative Physical Exam 2 Vital Signs: Vital Signs: Last Vital Signs Temp 97.0 F 10/28/23 04:00 Pulse 84 10/28/23 04:00 Resp 18 10/28/23 04:00 BP 160/67 H 10/28/23 04:00 Pulse Ox 100 10/28/23 04:00 O2 Del Method Room Air 10/28/23 04:00 BMI result Body Mass Index 20.5 Const: Other: Constitutional : Awake, interactive, not in distress Neck : Normal inspection, Supple Cardiovascular : RRR, no JVP Respiratory : good bilateral air entry, no wheezes or rhonchi Gastrointestinal: soft, lax, Non tender Skin : Warm, Dry Neurological : Alert & oriented to self only but otherwise confused and can get easily distracted, No focal deficit Objective Data Active Medications Acetaminophen (Acetaminophen 325 Mg Tablet) 650 mg PO Q6H PRN PRN Reason: Pain, Mild (Pain Scale 1-3) Last Admin: 10/28/23 08:37 Dose: 650 mg Documented By: KAREN Enoxaparin Sodium (Enoxaparin Sodium 40 Mg/0.4 Ml Syringe) 40 mg SUBCUT Q24H [facility] Last Admin: 10/27/23 16:14 Dose: Not Given Documented By: EVERARDO Non-Admin Reason: Patient Refused Fluticasone Propionate (Fluticasone Propionate Nasal 16 Gm [place]) 2 spray NOSTRIL-B DAILY [facility] Last Admin: 10/27/23 11:43 Dose: Not Given Documented By: EVERARDO Non-Admin Reason: Patient Asleep Levothyroxine Sodium (Levothyroxine Sodium 75 Mcg Tablet) 75 mcg PO DAILY@0630 [facility] Last Admin: 10/28/23 05:54 Dose: 75 mcg Documented By: PAWAN Ondansetron HCl (Ondansetron Hcl 4 Mg/2 Ml Vial) 4 mg IVPUSH Q8H PRN PRN Reason: Nausea and Vomiting Sodium Chloride (0.9 % Sodium Chloride Flush 3 Ml Syringe) 3 ml IVFLUSH QSHIFT [facility] Last Admin: 10/28/23 07:37 Dose: Not Given Documented By: KAREN Non-Admin Reason: No Access Trihexyphenidyl HCl (Trihexyphenidyl Hcl 2 Mg Tablet) 1 mg PO BID [facility] Last Admin: 10/28/23 08:34 Dose: 1 mg Documented By: KAREN Labs 10/14/23 13:09 10/16/23 05:55 Assessment and Plan (1) Cognitive decline: Status: Acute Plan 73F PMH Hypothyroid, anxiety who presented to ED 10/06/23 with AMS. found to be Covid19 positive at that point with increased weakness and confusion. was awaiting placement in ED and on 10/14/23 became more confused. Cognitive impairment Psych evaluation appreciated, patient does not have capacity to appoint hcp, will need guardian Metabolic encephalopathy 2/2 acute Hypernatremia on admission, resolved mental status back to baseline as Na level normalized Physical deconditioning PT eval recommending LTC Hx Covid 19 infx recent, repeat is negative Hypothyroidism Levothyroixne DVT PPx Lovenox The patient will need hospital stay pending guardianship and safe discharge plan Quality Stroke Does the patient have a stroke diagnosis?: No VTE Prior VTE?: No VTE Risk Level:: Medical - moderate - high VTE Device Contraindication: Treatment Not Indicated VTE Drug Contraindication: N/A - Med Ordered
[2023-10-28] MEDS: Enoxaparin Sodium 40 MG/0.4 ML SYRINGE SUBCUT (12:18)
--- NOTE | 2023-10-28 14:04 | MHC.CM.PN ---
CM spoke with partner Alejandro Johnson and provided updated.
[2023-10-28 19:08] VITALS: BP 134/63; PULSE 104; RESP 14; TEMP 36.9; O2SAT 97
[2023-10-29] MEDS: Levothyroxine Sodium 75 MCG TABLET PO (05:17)
[2023-10-29] MEDS: Acetaminophen 325 MG TABLET 650 MG PO (06:04)
[2023-10-29] MEDS: Trihexyphenidyl HCL 2 MG TABLET 1 MG PO ×2 (08:05→20:52)
[2023-10-29] MEDS: Fluticasone Propionate Nasal 16 GM SPRAY 2 SPRAY NOSTRIL-B (08:05)
[2023-10-29 08:47] VITALS: BP 154/69; PULSE 84; RESP 18; TEMP 36.1; O2SAT 99
--- NOTE | 2023-10-29 11:36 | P.PNIM_ITS ---
Subjective Subjective Date of Service: 10/29/23 Interval History: Seen and evaluated this morning Feels comfortable Confused and in good mood denies any complaints Physical Exam 2 Vital Signs: Vital Signs: Last Vital Signs Temp 96.9 F 10/29/23 08:47 Pulse 84 10/29/23 08:47 Resp 18 10/29/23 08:47 BP 154/69 H 10/29/23 08:47 Pulse Ox 99 10/29/23 08:47 O2 Del Method Room Air 10/29/23 08:47 BMI result Body Mass Index 20.5 Const: Other: Constitutional : Awake, interactive, not in distress Neck : Normal inspection, Supple Cardiovascular : RRR, no JVP Respiratory : good bilateral air entry, no wheezes or rhonchi Gastrointestinal: soft, lax, Non tender Skin : Warm, Dry Neurological : Alert & oriented to self only but otherwise confused and can get easily distracted, No focal deficit Objective Data Active Medications Acetaminophen (Acetaminophen 325 Mg Tablet) 650 mg PO Q6H PRN PRN Reason: Pain, Mild (Pain Scale 1-3) Last Admin: 10/29/23 06:04 Dose: 650 mg Documented By: PAWAN Enoxaparin Sodium (Enoxaparin Sodium 40 Mg/0.4 Ml Syringe) 40 mg SUBCUT Q24H [facility] Last Admin: 10/28/23 12:18 Dose: 40 mg Documented By: KAREN Fluticasone Propionate (Fluticasone Propionate Nasal 16 Gm [place]) 2 spray NOSTRIL-B DAILY [facility] Last Admin: 10/29/23 08:05 Dose: 2 spray Documented By: KAREN Levothyroxine Sodium (Levothyroxine Sodium 75 Mcg Tablet) 75 mcg PO DAILY@0630 [facility] Last Admin: 10/29/23 05:17 Dose: 75 mcg Documented By: PAWAN Ondansetron HCl (Ondansetron Hcl 4 Mg/2 Ml Vial) 4 mg IVPUSH Q8H PRN PRN Reason: Nausea and Vomiting Sodium Chloride (0.9 % Sodium Chloride Flush 3 Ml Syringe) 3 ml IVFLUSH QSHIFT [facility] Last Admin: 10/29/23 07:06 Dose: Not Given Documented By: KAREN Non-Admin Reason: No Access Trihexyphenidyl HCl (Trihexyphenidyl Hcl 2 Mg Tablet) 1 mg PO BID [facility] Last Admin: 10/29/23 08:05 Dose: 1 mg Documented By: KAREN Labs 10/14/23 13:09 10/16/23 05:55 Assessment and Plan (1) Cognitive decline: Status: Acute Plan 73F PMH Hypothyroid, anxiety who presented to ED 10/06/23 with AMS. found to be Covid19 positive at that point with increased weakness and confusion. was awaiting placement in ED and on 10/14/23 became more confused. Cognitive impairment Psych evaluation appreciated, patient does not have capacity to appoint hcp, will need guardian Metabolic encephalopathy 2/2 acute Hypernatremia on admission, resolved mental status back to baseline as Na level normalized Physical deconditioning PT eval recommending LTC Hx Covid 19 infx recent, repeat is negative Hypothyroidism Levothyroixne DVT PPx Lovenox The patient will need hospital stay pending guardianship and safe discharge plan Quality Stroke Does the patient have a stroke diagnosis?: No VTE Prior VTE?: No VTE Risk Level:: Medical - moderate - high VTE Device Contraindication: Treatment Not Indicated VTE Drug Contraindication: N/A - Med Ordered
[2023-10-29] MEDS: Enoxaparin Sodium 40 MG/0.4 ML SYRINGE SUBCUT (12:47)
--- NOTE | 2023-10-29 12:57 | MHC.CM.PN ---
EMR reviewed. DC pending guardianship (awaiting court date). Will also need [facility] for LTC once guardian is appointed. CM will continue to follow.
[2023-10-29 20:00] VITALS: BP 158/74; PULSE 95; RESP 14; TEMP 36.1; O2SAT 95
[2023-10-30 04:00] VITALS: BP 123/60; PULSE 78; RESP 16; TEMP 36.4; O2SAT 95
[2023-10-30] MEDS: Levothyroxine Sodium 75 MCG TABLET PO (05:18)
[2023-10-30 07:13] VITALS: BP 115/55; PULSE 78; RESP 16; TEMP 36.5; O2SAT 98
--- NOTE | 2023-10-30 11:35 | HO.PM.IMPN ---
Subjective Subjective Date of Service: 10/30/23 Interval History: Seen and evaluated this morning comfortable , Confused and in good mood denies any complaints Review of Systems Review of Systems: Yes all other systems are reviewed and are negative Physical Exam Vital Signs: Vital Signs: Last Vital Signs Temp 97.7 F 10/30/23 07:13 Pulse 78 10/30/23 07:13 Resp 16 10/30/23 07:13 BP 115/55 L 10/30/23 07:13 Pulse Ox 98 10/30/23 07:13 O2 Del Method Room Air 10/30/23 07:13 BMI result Body Mass Index 20.5 Const: Other: Constitutional : Awake, interactive, not in distress Neck : Normal inspection, Supple Cardiovascular : RRR, no JVP Respiratory : good bilateral air entry, no wheezes or rhonchi Gastrointestinal: soft, lax, Non tender Skin : Warm, Dry Neurological : Alert & oriented to self only but otherwise confused and can get easily distracted, No focal deficit Objective Data Active Medications Acetaminophen (Acetaminophen 325 Mg Tablet) 650 mg PO Q6H PRN PRN Reason: Pain, Mild (Pain Scale 1-3) Last Admin: 10/29/23 06:04 Dose: 650 mg Enoxaparin Sodium (Enoxaparin Sodium 40 Mg/0.4 Ml Syringe) 40 mg SUBCUT Q24H [facility] Last Admin: 10/29/23 12:47 Dose: 40 mg Documented By: KAREN Fluticasone Propionate (Fluticasone Propionate Nasal 16 Gm [place]) 2 spray NOSTRIL-B DAILY [facility] Last Admin: 10/30/23 10:33 Dose: Not Given Documented By: IGNACIO Non-Admin Reason: Patient Refused Levothyroxine Sodium (Levothyroxine Sodium 75 Mcg Tablet) 75 mcg PO DAILY@0630 [facility] Last Admin: 10/30/23 05:18 Dose: 75 mcg Documented By: MABLE Ondansetron HCl (Ondansetron Hcl 4 Mg/2 Ml Vial) 4 mg IVPUSH Q8H PRN PRN Reason: Nausea and Vomiting Sodium Chloride (0.9 % Sodium Chloride Flush 3 Ml Syringe) 3 ml IVFLUSH QSHIFT [facility] Last Admin: 10/30/23 08:59 Dose: Not Given Documented By: IGNACIO Non-Admin Reason: No Access Trihexyphenidyl HCl (Trihexyphenidyl Hcl 2 Mg Tablet) 1 mg PO BID [facility] Last Admin: 10/30/23 10:34 Dose: Not Given Documented By: IGNACIO Non-Admin Reason: Patient Refused Labs 10/14/23 13:09 10/16/23 05:55 Assessment and Plan (1) Cognitive decline: Status: Acute Plan 73F PMH Hypothyroid, anxiety who presented to ED 10/06/23 with AMS. found to be Covid19 positive at that point with increased weakness and confusion. was awaiting placement in ED and on 10/14/23 became more confused. Cognitive impairment Psych evaluation appreciated, patient does not have capacity to appoint hcp, will need guardian Metabolic encephalopathy 2/2 acute Hypernatremia on admission, resolved mental status back to baseline as Na level normalized Physical deconditioning PT eval recommending LTC Hx Covid 19 infx recent, repeat is negative Hypothyroidism Levothyroixne DVT PPx Lovenox The patient will need hospital stay pending guardianship and safe discharge plan Quality Stroke Does the patient have a stroke diagnosis?: No VTE Prior VTE?: No VTE Risk Level:: Medical - moderate - high VTE Device Contraindication: Treatment Not Indicated VTE Drug Contraindication: N/A - Med Ordered
[2023-10-30] MEDS: Enoxaparin Sodium 40 MG/0.4 ML SYRINGE SUBCUT (13:35)
[2023-10-30 15:41] VITALS: BP 142/61; PULSE 104; RESP 18; TEMP 36.9; O2SAT 98
[2023-10-30 19:20] VITALS: BP 124/90; PULSE 110; RESP 18; TEMP 36.7; O2SAT 100
[2023-10-30] MEDS: Trihexyphenidyl HCL 2 MG TABLET 1 MG PO (20:06)
[2023-10-30] MEDS: Acetaminophen 325 MG TABLET 650 MG PO (22:11)
[2023-10-31 03:51] VITALS: BP 142/66; PULSE 82; RESP 18; TEMP 36.7; O2SAT 99
[2023-10-31] MEDS: Levothyroxine Sodium 75 MCG TABLET PO (05:30)
[2023-10-31] MEDS: Trihexyphenidyl HCL 2 MG TABLET 1 MG PO ×2 (07:32→21:26)
[2023-10-31] MEDS: Acetaminophen 325 MG TABLET 650 MG PO ×2 (07:33→21:28)
[2023-10-31 07:44] VITALS: BP 141/59; PULSE 71; RESP 16; TEMP 36.2; O2SAT 99
[2023-10-31] MEDS: Fluticasone Propionate Nasal 16 GM SPRAY 2 SPRAY NOSTRIL-B (09:48)
--- NOTE | 2023-10-31 10:54 | HO.PM.IMPN ---
Subjective Subjective Date of Service: 10/31/23 Interval History: Seen and evaluated this morning Comfortable , Confused and in good mood Denies any complaints Physical Exam Vital Signs: Vital Signs: Last Vital Signs Temp 97.2 F 10/31/23 07:44 Pulse 71 10/31/23 07:44 Resp 16 10/31/23 07:44 BP 141/59 H 10/31/23 07:44 Pulse Ox 99 10/31/23 07:44 O2 Del Method Room Air 10/31/23 07:44 BMI result Body Mass Index 20.5 Const: Other: Constitutional : Awake, interactive, not in distress Neck : Normal inspection, Supple Cardiovascular : RRR, no JVP Respiratory : good bilateral air entry, no wheezes or rhonchi Gastrointestinal: soft, lax, Non tender Skin : Warm, Dry Neurological : Alert & oriented to self only but otherwise confused and can get easily distracted, No focal deficit Objective Data Active Medications Acetaminophen (Acetaminophen 325 Mg Tablet) 650 mg PO Q6H PRN PRN Reason: Pain, Mild (Pain Scale 1-3) Last Admin: 10/31/23 07:33 Dose: 650 mg Documented By: IGNACIO Enoxaparin Sodium (Enoxaparin Sodium 40 Mg/0.4 Ml Syringe) 40 mg SUBCUT Q24H [facility] Last Admin: 10/30/23 13:35 Dose: 40 mg Documented By: IGNACIO Fluticasone Propionate (Fluticasone Propionate Nasal 16 Gm [place]) 2 spray NOSTRIL-B DAILY [facility] Last Admin: 10/31/23 09:48 Dose: 2 spray Documented By: IGNACIO Levothyroxine Sodium (Levothyroxine Sodium 75 Mcg Tablet) 75 mcg PO DAILY@0630 [facility] Last Admin: 10/31/23 05:30 Dose: 75 mcg Documented By: MABLE Ondansetron HCl (Ondansetron Hcl 4 Mg/2 Ml Vial) 4 mg IVPUSH Q8H PRN PRN Reason: Nausea and Vomiting Sodium Chloride (0.9 % Sodium Chloride Flush 3 Ml Syringe) 3 ml IVFLUSH QSHIFT [facility] Last Admin: 10/31/23 07:26 Dose: Not Given Documented By: IGNACIO Non-Admin Reason: No Access Trihexyphenidyl HCl (Trihexyphenidyl Hcl 2 Mg Tablet) 1 mg PO BID [facility] Last Admin: 10/31/23 07:32 Dose: 1 mg Documented By: IGNACIO Labs 10/14/23 13:09 10/16/23 05:55 Assessment and Plan (1) Cognitive decline: Status: Acute Plan 73F PMH Hypothyroid, anxiety who presented to ED 10/06/23 with AMS. found to be Covid19 positive at that point with increased weakness and confusion. was awaiting placement in ED and on 10/14/23 became more confused. Cognitive impairment Psych evaluation appreciated, patient does not have capacity to appoint hcp, will need guardian Metabolic encephalopathy 2/2 acute Hypernatremia on admission, resolved mental status back to baseline as Na level normalized Physical deconditioning PT eval recommending LTC Hx Covid 19 infx recent, repeat is negative Hypothyroidism Levothyroixne DVT PPx Lovenox The patient will need hospital stay pending guardianship and safe discharge plan Quality Stroke Does the patient have a stroke diagnosis?: No VTE Prior VTE?: No VTE Risk Level:: Medical - moderate - high VTE Device Contraindication: Treatment Not Indicated VTE Drug Contraindication: N/A - Med Ordered
[2023-10-31] MEDS: Enoxaparin Sodium 40 MG/0.4 ML SYRINGE SUBCUT (14:23)
[2023-10-31 15:04] VITALS: BP 144/59; PULSE 76; RESP 16; TEMP 36.4; O2SAT 96
[2023-10-31 19:29] VITALS: BP 134/63; PULSE 75; RESP 18; TEMP 36.6; O2SAT 99
[2023-11-01 00:21] VITALS: BP 155/70; PULSE 78; RESP 18; TEMP 36.4; O2SAT 99
[2023-11-01] MEDS: Levothyroxine Sodium 75 MCG TABLET PO (06:20)
[2023-11-01 07:38] VITALS: BP 131/58; PULSE 84; RESP 17; TEMP 37.1; O2SAT 97
[2023-11-01] MEDS: Trihexyphenidyl HCL 2 MG TABLET 1 MG PO ×2 (07:43→19:46)
--- NOTE | 2023-11-01 11:44 | HO.PM.IMPN ---
Subjective Subjective Date of Service: 11/01/23 Interval History: Seen and evaluated this morning Comfortable , Confused and delusional Denies any complaints Review of Systems Review of Systems: Yes all other systems are reviewed and are negative Physical Exam Vital Signs: Vital Signs: Last Vital Signs Temp 98.8 F 11/01/23 07:38 Pulse 84 11/01/23 07:38 Resp 17 11/01/23 07:38 BP 131/58 L 11/01/23 07:38 Pulse Ox 97 11/01/23 07:38 O2 Del Method Room Air 11/01/23 07:38 BMI result Body Mass Index 20.5 Const: Other: Constitutional : Awake, interactive, not in distress Neck : Normal inspection, Supple Cardiovascular : RRR, no JVP Respiratory : good bilateral air entry, no wheezes or rhonchi Gastrointestinal: soft, lax, Non tender Skin : Warm, Dry Neurological : Alert & oriented to self only but otherwise confused and can get easily distracted, No focal deficit Objective Data Active Medications Acetaminophen (Acetaminophen 325 Mg Tablet) 650 mg PO Q6H PRN PRN Reason: Pain, Mild (Pain Scale 1-3) Last Admin: 10/31/23 21:28 Dose: 650 mg Documented By: REBECCA Enoxaparin Sodium (Enoxaparin Sodium 40 Mg/0.4 Ml Syringe) 40 mg SUBCUT Q24H [facility] Last Admin: 10/31/23 14:23 Dose: 40 mg Documented By: IGNACIO Fluticasone Propionate (Fluticasone Propionate Nasal 16 Gm [place]) 2 spray NOSTRIL-B DAILY [facility] Last Admin: 11/01/23 08:21 Dose: Not Given Documented By: CHILO Non-Admin Reason: Patient Refused Levothyroxine Sodium (Levothyroxine Sodium 75 Mcg Tablet) 75 mcg PO DAILY@0630 [facility] Last Admin: 11/01/23 06:20 Dose: 75 mcg Documented By: LEAH Ondansetron HCl (Ondansetron Hcl 4 Mg/2 Ml Vial) 4 mg IVPUSH Q8H PRN PRN Reason: Nausea and Vomiting Sodium Chloride (0.9 % Sodium Chloride Flush 3 Ml Syringe) 3 ml IVFLUSH QSHIFT [facility] Last Admin: 11/01/23 07:42 Dose: Not Given Documented By: CHILO Non-Admin Reason: No Access Trihexyphenidyl HCl (Trihexyphenidyl Hcl 2 Mg Tablet) 1 mg PO BID [facility] Last Admin: 11/01/23 07:43 Dose: 1 mg Documented By: CHILO Labs 10/14/23 13:09 10/16/23 05:55 Assessment and Plan (1) Cognitive decline: Status: Acute Plan 73F PMH Hypothyroid, anxiety who presented to ED 10/06/23 with AMS. found to be Covid19 positive at that point with increased weakness and confusion. was awaiting placement in ED and on 10/14/23 became more confused. Cognitive impairment Psych evaluation appreciated, patient does not have capacity to appoint hcp, will need guardian Metabolic encephalopathy 2/2 acute Hypernatremia on admission, resolved mental status back to baseline as Na level normalized Physical deconditioning PT eval recommending LTC Hx Covid 19 infx recent, repeat is negative Hypothyroidism Levothyroixne DVT PPx Lovenox The patient will need hospital stay pending guardianship and safe discharge plan Quality Stroke Does the patient have a stroke diagnosis?: No VTE Prior VTE?: No VTE Risk Level:: Medical - moderate - high VTE Device Contraindication: Treatment Not Indicated VTE Drug Contraindication: N/A - Med Ordered
[2023-11-01] MEDS: Enoxaparin Sodium 40 MG/0.4 ML SYRINGE SUBCUT (12:34)
--- NOTE | 2023-11-01 13:13 | MHC.CM.PN ---
EMR REVIEWED. PT REMAINS CONFUSED. AWAITING [facility] HEARING (AWAITING COURT DATE) AND [facility] COMPLETED FOR LTC PLACEMENT. CM WILL CONTINUE TO FOLLOW FOR ANY CHANGE IN DC NEEDS/PLAN
[2023-11-01 15:15] VITALS: BP 125/65; PULSE 87; RESP 18; TEMP 36.9; O2SAT 98
[2023-11-01 19:35] VITALS: BP 113/54; PULSE 88; RESP 18; TEMP 36.4; O2SAT 97
[2023-11-01] MEDS: Acetaminophen 325 MG TABLET 650 MG PO (19:46)
[2023-11-02 03:26] VITALS: BP 120/53; PULSE 86; RESP 18; TEMP 36.5; O2SAT 98
[2023-11-02] MEDS: Levothyroxine Sodium 75 MCG TABLET PO (05:28)
[2023-11-02 07:32] VITALS: BP 118/57; PULSE 75; RESP 17; TEMP 36.7; O2SAT 97
[2023-11-02] MEDS: Trihexyphenidyl HCL 2 MG TABLET 1 MG PO ×2 (08:54→21:40)
[2023-11-02] MEDS: Acetaminophen 325 MG TABLET 650 MG PO ×2 (08:59→22:57)
[2023-11-02] MEDS: Fluticasone Propionate Nasal 16 GM SPRAY 2 SPRAY NOSTRIL-B (09:01)
--- NOTE | 2023-11-02 09:42 | HO.PM.IMPN ---
Subjective Subjective Date of Service: 11/02/23 Interval History: Seen and evaluated this morning Comfortable , Confused and delusional Denies any complaints Physical Exam Vital Signs: Vital Signs: Last Vital Signs Temp 98.1 F 11/02/23 07:32 Pulse 75 11/02/23 07:32 Resp 17 11/02/23 07:32 BP 118/57 L 11/02/23 07:32 Pulse Ox 97 11/02/23 07:32 O2 Del Method Room Air 11/02/23 07:32 BMI result Body Mass Index 20.5 Const: Other: Constitutional : Awake, interactive, not in distress Neck : Normal inspection, Supple Cardiovascular : RRR, no JVP Respiratory : good bilateral air entry, no wheezes or rhonchi Gastrointestinal: soft, lax, Non tender Skin : Warm, Dry Neurological : Alert & oriented to self only but otherwise confused and can get easily distracted, tremors, No focal deficit Objective Data Active Medications Acetaminophen (Acetaminophen 325 Mg Tablet) 650 mg PO Q6H PRN PRN Reason: Pain, Mild (Pain Scale 1-3) Last Admin: 11/02/23 08:59 Dose: 650 mg Documented By: CHILO Enoxaparin Sodium (Enoxaparin Sodium 40 Mg/0.4 Ml Syringe) 40 mg SUBCUT Q24H [facility] Last Admin: 11/01/23 12:34 Dose: 40 mg Documented By: CHILO Fluticasone Propionate (Fluticasone Propionate Nasal 16 Gm [place]) 2 spray NOSTRIL-B DAILY [facility] Last Admin: 11/02/23 09:01 Dose: 2 spray Documented By: CHILO Levothyroxine Sodium (Levothyroxine Sodium 75 Mcg Tablet) 75 mcg PO DAILY@0630 [facility] Last Admin: 11/02/23 05:28 Dose: 75 mcg Documented By: HIGINIO Ondansetron HCl (Ondansetron Hcl 4 Mg/2 Ml Vial) 4 mg IVPUSH Q8H PRN PRN Reason: Nausea and Vomiting Sodium Chloride (0.9 % Sodium Chloride Flush 3 Ml Syringe) 3 ml IVFLUSH QSHIFT [facility] Last Admin: 11/02/23 08:25 Dose: Not Given Documented By: CHILO Non-Admin Reason: No Access Trihexyphenidyl HCl (Trihexyphenidyl Hcl 2 Mg Tablet) 1 mg PO BID [facility] Last Admin: 11/02/23 08:54 Dose: 1 mg Documented By: CHILO Labs 10/14/23 13:09 10/16/23 05:55 Assessment and Plan (1) Cognitive decline: Status: Acute Plan 73F PMH Hypothyroid, anxiety who presented to ED 10/06/23 with AMS. found to be Covid19 positive at that point with increased weakness and confusion. was awaiting placement in ED and on 10/14/23 became more confused. Cognitive impairment Psych evaluation appreciated, patient does not have capacity to appoint hcp, will need guardian Metabolic encephalopathy 2/2 acute Hypernatremia on admission, resolved mental status back to baseline as Na level normalized Physical deconditioning PT eval recommending LTC Hx Covid 19 infx recent, repeat is negative Hypothyroidism Levothyroixne DVT PPx Lovenox The patient will need hospital stay pending guardianship and safe discharge plan Quality Stroke Does the patient have a stroke diagnosis?: No VTE Prior VTE?: No VTE Risk Level:: Medical - moderate - high VTE Device Contraindication: Treatment Not Indicated VTE Drug Contraindication: N/A - Med Ordered
[2023-11-02] MEDS: Enoxaparin Sodium 40 MG/0.4 ML SYRINGE SUBCUT (14:13)
[2023-11-02 15:14] VITALS: BP 138/59; PULSE 87; RESP 18; TEMP 36.6; O2SAT 97
[2023-11-02 19:36] VITALS: BP 155/67; PULSE 107; RESP 20; TEMP 36.2; O2SAT 98
[2023-11-03 03:23] VITALS: BP 115/60; PULSE 85; RESP 18; TEMP 36.8; O2SAT 99
[2023-11-03] MEDS: Levothyroxine Sodium 75 MCG TABLET PO (06:25)
[2023-11-03 07:50] VITALS: BP 135/58; PULSE 87; RESP 17; TEMP 36.1; O2SAT 98
[2023-11-03] MEDS: Trihexyphenidyl HCL 2 MG TABLET 1 MG PO ×2 (11:00→19:40)
[2023-11-03] MEDS: Fluticasone Propionate Nasal 16 GM SPRAY 2 SPRAY NOSTRIL-B (11:00)
--- NOTE | 2023-11-03 11:05 | HO.PM.IMPN ---
Subjective Subjective Date of Service: 11/03/23 Interval History: Seen and evaluated this morning Comfortable , Confused and delusional Denies any complaints Review of Systems Review of Systems: Yes all other systems are reviewed and are negative Physical Exam Vital Signs: Vital Signs: Last Vital Signs Temp 97.0 F 11/03/23 07:50 Pulse 87 11/03/23 07:50 Resp 17 11/03/23 07:50 BP 135/58 L 11/03/23 07:50 Pulse Ox 98 11/03/23 07:50 O2 Del Method Room Air 11/03/23 07:50 BMI result Body Mass Index 20.5 Const: Other: Constitutional : Awake, interactive, not in distress Neck : Normal inspection, Supple Cardiovascular : RRR, no JVP Respiratory : good bilateral air entry, no wheezes or rhonchi Gastrointestinal: soft, lax, Non tender Skin : Warm, Dry Neurological : Alert & oriented to self only but otherwise confused and can get easily distracted, tremors, No focal deficit Psychological; pressure speech, flight of ideas, delusions Objective Data Active Medications Acetaminophen (Acetaminophen 325 Mg Tablet) 650 mg PO Q6H PRN PRN Reason: Pain, Mild (Pain Scale 1-3) Last Admin: 11/02/23 22:57 Dose: 650 mg Documented By: SKY Enoxaparin Sodium (Enoxaparin Sodium 40 Mg/0.4 Ml Syringe) 40 mg SUBCUT Q24H [facility] Last Admin: 11/02/23 14:13 Dose: 40 mg Documented By: CHILO Fluticasone Propionate (Fluticasone Propionate Nasal 16 Gm [place]) 2 spray NOSTRIL-B DAILY [facility] Last Admin: 11/02/23 09:01 Dose: 2 spray Documented By: CHILO Levothyroxine Sodium (Levothyroxine Sodium 75 Mcg Tablet) 75 mcg PO DAILY@0630 [facility] Last Admin: 11/03/23 06:25 Dose: 75 mcg Documented By: SKY Ondansetron HCl (Ondansetron Hcl 4 Mg/2 Ml Vial) 4 mg IVPUSH Q8H PRN PRN Reason: Nausea and Vomiting Trihexyphenidyl HCl (Trihexyphenidyl Hcl 2 Mg Tablet) 1 mg PO BID [facility] Last Admin: 11/02/23 21:40 Dose: 1 mg Documented By: SKY Labs 10/14/23 13:09 10/16/23 05:55 Assessment and Plan (1) Cognitive decline: Status: Acute Plan 73F PMH Hypothyroid, anxiety who presented to ED 10/06/23 with AMS. found to be Covid19 positive at that point with increased weakness and confusion. was awaiting placement in ED and on 10/14/23 became more confused. Cognitive impairment Psych evaluation appreciated, patient does not have capacity to appoint hcp, will need guardian Metabolic encephalopathy 2/2 acute Hypernatremia on admission, resolved mental status back to baseline as Na level normalized Physical deconditioning PT eval recommending LTC Hx Covid 19 infx recent, repeat is negative Hypothyroidism Levothyroixne DVT PPx Lovenox The patient will need hospital stay pending guardianship and safe discharge plan Quality Stroke Does the patient have a stroke diagnosis?: No VTE Prior VTE?: No VTE Risk Level:: Medical - moderate - high VTE Device Contraindication: Treatment Not Indicated VTE Drug Contraindication: N/A - Med Ordered
[2023-11-03] MEDS: Enoxaparin Sodium 40 MG/0.4 ML SYRINGE SUBCUT (12:48)
[2023-11-03 16:00] VITALS: BP 125/60; PULSE 89; RESP 16; TEMP 36.7; O2SAT 97
[2023-11-03 19:26] VITALS: BP 127/66; PULSE 107; RESP 18; TEMP 37.1; O2SAT 96
[2023-11-03] MEDS: Acetaminophen 325 MG TABLET 650 MG PO (19:39)
[2023-11-04 03:46] VITALS: BP 155/68; PULSE 99; RESP 20; TEMP 36.3; O2SAT 99
[2023-11-04] MEDS: Levothyroxine Sodium 75 MCG TABLET PO (05:36)
[2023-11-04] MEDS: Acetaminophen 325 MG TABLET 650 MG PO (07:37)
[2023-11-04] MEDS: Fluticasone Propionate Nasal 16 GM SPRAY 2 SPRAY NOSTRIL-B (07:37)
[2023-11-04] MEDS: Trihexyphenidyl HCL 2 MG TABLET 1 MG PO ×2 (07:38→22:12)
[2023-11-04 07:47] VITALS: BP 158/68; PULSE 92; RESP 18; TEMP 37.1; O2SAT 98
--- NOTE | 2023-11-04 09:55 | P.PNIM_ITS ---
Subjective Subjective Date of Service: 11/04/23 Interval History: no complaints, pelasantly confused Physical Exam 2 Vital Signs: Vital Signs: Last Vital Signs Temp 98.8 F 11/04/23 07:47 Pulse 92 11/04/23 07:47 Resp 18 11/04/23 07:47 BP 158/68 H 11/04/23 07:47 Pulse Ox 98 11/04/23 07:47 O2 Del Method Room Air 11/04/23 07:47 BMI result Body Mass Index 20.5 Const: Other: Constitutional : Awake, interactive, not in distress Neck : Normal inspection, Supple Cardiovascular : RRR, no JVP Respiratory : good bilateral air entry, no wheezes or rhonchi Gastrointestinal: soft, lax, Non tender Skin : Warm, Dry Neurological : Alert & oriented to self only but otherwise confused and can get easily distracted, tremors, No focal deficit Psychological; pressure speech, flight of ideas, delusions Objective Data Active Medications Acetaminophen (Acetaminophen 325 Mg Tablet) 650 mg PO Q6H PRN PRN Reason: Pain, Mild (Pain Scale 1-3) Last Admin: 11/04/23 07:37 Dose: 650 mg Documented By: LYNDA Enoxaparin Sodium (Enoxaparin Sodium 40 Mg/0.4 Ml Syringe) 40 mg SUBCUT Q24H [facility] Last Admin: 11/03/23 12:48 Dose: 40 mg Documented By: JOHNSON Fluticasone Propionate (Fluticasone Propionate Nasal 16 Gm [place]) 2 spray NOSTRIL-B DAILY [facility] Last Admin: 11/04/23 07:37 Dose: 2 spray Documented By: LYNDA Levothyroxine Sodium (Levothyroxine Sodium 75 Mcg Tablet) 75 mcg PO DAILY@0630 [facility] Last Admin: 11/04/23 05:36 Dose: 75 mcg Documented By: MABLE Ondansetron HCl (Ondansetron Hcl 4 Mg/2 Ml Vial) 4 mg IVPUSH Q8H PRN PRN Reason: Nausea and Vomiting Trihexyphenidyl HCl (Trihexyphenidyl Hcl 2 Mg Tablet) 1 mg PO BID [facility] Last Admin: 11/04/23 07:38 Dose: 1 mg Documented By: LYNDA Labs 10/14/23 13:09 10/16/23 05:55 Assessment and Plan (1) Cognitive decline: Status: Acute Plan 73F PMH Hypothyroid, anxiety who presented to ED 10/06/23 with AMS. found to be Covid19 positive at that point with increased weakness and confusion. was awaiting placement in ED and on 10/14/23 became more confused. Cognitive impairment Psych evaluation appreciated, patient does not have capacity to appoint hcp, will need guardian Metabolic encephalopathy 2/2 acute Hypernatremia on admission, resolved mental status back to baseline as Na level normalized Physical deconditioning PT eval recommending LTC Hx Covid 19 infx recent, repeat is negative Hypothyroidism Levothyroixne DVT PPx Lovenox The patient will need hospital stay pending guardianship and safe discharge plan Quality Stroke Does the patient have a stroke diagnosis?: No VTE Prior VTE?: No VTE Risk Level:: Medical - moderate - high VTE Device Contraindication: Treatment Not Indicated VTE Drug Contraindication: N/A - Med Ordered
[2023-11-04] MEDS: OLANZapine 5 MG TABLET PO (11:21)
[2023-11-04] MEDS: Enoxaparin Sodium 40 MG/0.4 ML SYRINGE SUBCUT (13:01)
[2023-11-04 15:19] VITALS: BP 136/61; PULSE 84; RESP 16; TEMP 36.6; O2SAT 97
[2023-11-04 19:21] VITALS: BP 134/60; PULSE 98; RESP 16; TEMP 36.3; O2SAT 100
[2023-11-05 03:49] VITALS: PULSE 69; RESP 17; TEMP 36.3; O2SAT 97
[2023-11-05] MEDS: Levothyroxine Sodium 75 MCG TABLET PO (06:22)
[2023-11-05 06:33] VITALS: BP 128/60; PULSE 81; RESP 16; TEMP 35.9; O2SAT 98
[2023-11-05] MEDS: Trihexyphenidyl HCL 2 MG TABLET 1 MG PO ×2 (08:16→22:23)
[2023-11-05] MEDS: Fluticasone Propionate Nasal 16 GM SPRAY 2 SPRAY NOSTRIL-B (08:16)
--- NOTE | 2023-11-05 09:19 | P.PNIM_ITS ---
Subjective Subjective Date of Service: 11/05/23 Interval History: no complaints, pelasantly confused Physical Exam 2 Vital Signs: Vital Signs: Last Vital Signs Temp 96.7 F L 11/05/23 06:33 Pulse 81 11/05/23 06:33 Resp 16 11/05/23 06:33 BP 128/60 11/05/23 06:33 Pulse Ox 98 11/05/23 06:33 O2 Del Method Room Air 11/05/23 06:33 BMI result Body Mass Index 20.5 Const: Other: Constitutional : Awake, interactive, not in distress Neck : Normal inspection, Supple Cardiovascular : RRR, no JVP Respiratory : good bilateral air entry, no wheezes or rhonchi Gastrointestinal: soft, lax, Non tender Skin : Warm, Dry Neurological : Alert & oriented to self only but otherwise confused and can get easily distracted, tremors, No focal deficit Psychological; pressure speech, flight of ideas, delusions Objective Data Active Medications Acetaminophen (Acetaminophen 325 Mg Tablet) 650 mg PO Q6H PRN PRN Reason: Pain, Mild (Pain Scale 1-3) Last Admin: 11/04/23 07:37 Dose: 650 mg Documented By: LYNDA Enoxaparin Sodium (Enoxaparin Sodium 40 Mg/0.4 Ml Syringe) 40 mg SUBCUT Q24H [facility] Last Admin: 11/04/23 13:01 Dose: 40 mg Documented By: LYNDA Fluticasone Propionate (Fluticasone Propionate Nasal 16 Gm [place]) 2 spray NOSTRIL-B DAILY [facility] Last Admin: 11/05/23 08:16 Dose: 2 spray Documented By: JOHNSON Levothyroxine Sodium (Levothyroxine Sodium 75 Mcg Tablet) 75 mcg PO DAILY@0630 [facility] Last Admin: 11/05/23 06:22 Dose: 75 mcg Documented By: SKY Ondansetron HCl (Ondansetron Hcl 4 Mg/2 Ml Vial) 4 mg IVPUSH Q8H PRN PRN Reason: Nausea and Vomiting Trihexyphenidyl HCl (Trihexyphenidyl Hcl 2 Mg Tablet) 1 mg PO BID [facility] Last Admin: 11/05/23 08:16 Dose: 1 mg Documented By: JOHNSON Labs 10/14/23 13:09 10/16/23 05:55 Assessment and Plan (1) Cognitive decline: Status: Acute Plan 73F PMH Hypothyroid, anxiety who presented to ED 10/06/23 with AMS. found to be Covid19 positive at that point with increased weakness and confusion. was awaiting placement in ED and on 10/14/23 became more confused. Cognitive impairment Psych evaluation appreciated, patient does not have capacity to appoint hcp, will need guardian Metabolic encephalopathy 2/2 acute Hypernatremia on admission, resolved mental status back to baseline as Na level normalized Physical deconditioning PT eval recommending LTC Hx Covid 19 infx recent, repeat is negative Hypothyroidism Levothyroixne DVT PPx Lovenox The patient will need hospital stay pending guardianship and safe discharge plan Quality Stroke Does the patient have a stroke diagnosis?: No VTE Prior VTE?: No VTE Risk Level:: Medical - moderate - high VTE Device Contraindication: Treatment Not Indicated VTE Drug Contraindication: N/A - Med Ordered
[2023-11-05 15:30] VITALS: BP 146/83; PULSE 89; RESP 18; TEMP 36.4; O2SAT 95
[2023-11-05 18:54] VITALS: BP 144/65; PULSE 93; RESP 18; TEMP 36.1; O2SAT 98
[2023-11-06 03:05] VITALS: BP 120/57; PULSE 85; RESP 17; TEMP 36.5; O2SAT 98
[2023-11-06] MEDS: Levothyroxine Sodium 75 MCG TABLET PO (05:37)
[2023-11-06 07:40] VITALS: BP 148/65; PULSE 83; RESP 17; TEMP 36.2; O2SAT 99
[2023-11-06] MEDS: Trihexyphenidyl HCL 2 MG TABLET 1 MG PO ×2 (08:35→20:16)
[2023-11-06] MEDS: Fluticasone Propionate Nasal 16 GM SPRAY 2 SPRAY NOSTRIL-B (08:37)
--- NOTE | 2023-11-06 08:38 | HO.PM.IMPN ---
Subjective Subjective Date of Service: 11/06/23 Interval History: no complaints, pelasantly confused Physical Exam Vital Signs: Vital Signs: Last Vital Signs Temp 97.2 F 11/06/23 07:40 Pulse 83 11/06/23 07:40 Resp 17 11/06/23 07:40 BP 148/65 H 11/06/23 07:40 Pulse Ox 99 11/06/23 07:40 O2 Del Method Room Air 11/06/23 07:40 BMI result Body Mass Index 20.5 Const: Other: Constitutional : Awake, interactive, not in distress Neck : Normal inspection, Supple Cardiovascular : RRR, no JVP Respiratory : good bilateral air entry, no wheezes or rhonchi Gastrointestinal: soft, lax, Non tender Skin : Warm, Dry Neurological : Alert & oriented to self only but otherwise confused and can get easily distracted, tremors, No focal deficit Psychological; pressure speech, flight of ideas, delusions Objective Data Active Medications Acetaminophen (Acetaminophen 325 Mg Tablet) 650 mg PO Q6H PRN PRN Reason: Pain, Mild (Pain Scale 1-3) Last Admin: 11/04/23 07:37 Dose: 650 mg Documented By: LYNDA Enoxaparin Sodium (Enoxaparin Sodium 40 Mg/0.4 Ml Syringe) 40 mg SUBCUT Q24H [facility] Last Admin: 11/05/23 15:51 Dose: Not Given Documented By: JOHNSON Non-Admin Reason: Patient Refused Fluticasone Propionate (Fluticasone Propionate Nasal 16 Gm [place]) 2 spray NOSTRIL-B DAILY [facility] Last Admin: 11/06/23 08:37 Dose: 2 spray Documented By: DAPHNE Levothyroxine Sodium (Levothyroxine Sodium 75 Mcg Tablet) 75 mcg PO DAILY@0630 [facility] Last Admin: 11/06/23 05:37 Dose: 75 mcg Documented By: CAROLYNN Ondansetron HCl (Ondansetron Hcl 4 Mg/2 Ml Vial) 4 mg IVPUSH Q8H PRN PRN Reason: Nausea and Vomiting Trihexyphenidyl HCl (Trihexyphenidyl Hcl 2 Mg Tablet) 1 mg PO BID [facility] Last Admin: 11/06/23 08:35 Dose: 1 mg Documented By: DAPHNE Labs 10/14/23 13:09 10/16/23 05:55 Assessment and Plan (1) Cognitive decline: Status: Acute Plan 73F PMH Hypothyroid, anxiety who presented to ED 10/06/23 with AMS. found to be Covid19 positive at that point with increased weakness and confusion. was awaiting placement in ED and on 10/14/23 became more confused. Cognitive impairment Psych evaluation appreciated, patient does not have capacity to appoint hcp, will need guardian Metabolic encephalopathy 2/2 acute Hypernatremia on admission, resolved mental status back to baseline as Na level normalized Physical deconditioning PT eval recommending LTC Hx Covid 19 infx recent, repeat is negative Hypothyroidism Levothyroixne DVT PPx Lovenox The patient will need hospital stay pending guardianship and safe discharge plan Quality Stroke Does the patient have a stroke diagnosis?: No VTE Prior VTE?: No VTE Risk Level:: Medical - moderate - high VTE Device Contraindication: Treatment Not Indicated VTE Drug Contraindication: N/A - Med Ordered
[2023-11-06] MEDS: Enoxaparin Sodium 40 MG/0.4 ML SYRINGE SUBCUT (13:08)
[2023-11-06 15:52] VITALS: BP 124/56; PULSE 83; RESP 18; TEMP 36.6; O2SAT 96
[2023-11-06 19:14] VITALS: BP 160/66; PULSE 94; RESP 18; TEMP 36.7; O2SAT 99
[2023-11-07 04:38] VITALS: BP 104/52; PULSE 82; RESP 16; TEMP 36.9; O2SAT 96
[2023-11-07] MEDS: Levothyroxine Sodium 75 MCG TABLET PO (06:04)
[2023-11-07 08:00] VITALS: BP 141/65; PULSE 83; RESP 17; TEMP 36.9; O2SAT 95
--- NOTE | 2023-11-07 09:02 | HO.PM.IMPN ---
Subjective Subjective Date of Service: 11/07/23 Interval History: no complaints, pelasantly confused Physical Exam Vital Signs: Vital Signs: Last Vital Signs Temp 98.5 F 11/07/23 08:00 Pulse 83 11/07/23 08:00 Resp 17 11/07/23 08:00 BP 141/65 H 11/07/23 08:00 Pulse Ox 95 11/07/23 08:00 O2 Del Method Room Air 11/07/23 08:00 BMI result Body Mass Index 20.5 Const: Other: Constitutional : Awake, interactive, not in distress Neck : Normal inspection, Supple Cardiovascular : RRR, no JVP Respiratory : good bilateral air entry, no wheezes or rhonchi Gastrointestinal: soft, lax, Non tender Skin : Warm, Dry Neurological : Alert & oriented to self only but otherwise confused and can get easily distracted, tremors, No focal deficit Psychological; pressure speech, flight of ideas, delusions Objective Data Active Medications Acetaminophen (Acetaminophen 325 Mg Tablet) 650 mg PO Q6H PRN PRN Reason: Pain, Mild (Pain Scale 1-3) Last Admin: 11/04/23 07:37 Dose: 650 mg Documented By: LYNDA Enoxaparin Sodium (Enoxaparin Sodium 40 Mg/0.4 Ml Syringe) 40 mg SUBCUT Q24H [facility] Last Admin: 11/06/23 13:08 Dose: 40 mg Documented By: DAPHNE Fluticasone Propionate (Fluticasone Propionate Nasal 16 Gm [place]) 2 spray NOSTRIL-B DAILY [facility] Last Admin: 11/06/23 08:37 Dose: 2 spray Documented By: DAPHNE Levothyroxine Sodium (Levothyroxine Sodium 75 Mcg Tablet) 75 mcg PO DAILY@0630 [facility] Last Admin: 11/07/23 06:04 Dose: 75 mcg Documented By: CAROLYNN Ondansetron HCl (Ondansetron Hcl 4 Mg/2 Ml Vial) 4 mg IVPUSH Q8H PRN PRN Reason: Nausea and Vomiting Trihexyphenidyl HCl (Trihexyphenidyl Hcl 2 Mg Tablet) 1 mg PO BID [facility] Last Admin: 11/06/23 20:16 Dose: 1 mg Documented By: CAROLYNN Labs 10/14/23 13:09 10/16/23 05:55 Assessment and Plan (1) Cognitive decline: Status: Acute Plan 73F PMH Hypothyroid, anxiety who presented to ED 10/06/23 with AMS. found to be Covid19 positive at that point with increased weakness and confusion. was awaiting placement in ED and on 10/14/23 became more confused. Cognitive impairment Psych evaluation appreciated, patient does not have capacity to appoint hcp, will need guardian Metabolic encephalopathy 2/2 acute Hypernatremia on admission, resolved mental status back to baseline as Na level normalized Physical deconditioning PT eval recommending LTC Hx Covid 19 infx recent, repeat is negative Hypothyroidism Levothyroixne DVT PPx Lovenox The patient will need hospital stay pending guardianship and safe discharge plan Quality Stroke Does the patient have a stroke diagnosis?: No VTE Prior VTE?: No VTE Risk Level:: Medical - moderate - high VTE Device Contraindication: Treatment Not Indicated VTE Drug Contraindication: N/A - Med Ordered
[2023-11-07] MEDS: Fluticasone Propionate Nasal 16 GM SPRAY 2 SPRAY NOSTRIL-B (09:10)
[2023-11-07] MEDS: Trihexyphenidyl HCL 2 MG TABLET 1 MG PO ×2 (09:10→21:34)
[2023-11-07] MEDS: Enoxaparin Sodium 40 MG/0.4 ML SYRINGE SUBCUT (12:10)
[2023-11-07 15:33] VITALS: BP 122/56; PULSE 87; RESP 18; TEMP 36.8; O2SAT 97
[2023-11-07 19:09] VITALS: BP 130/60; PULSE 96; RESP 17; TEMP 36.8; O2SAT 99
[2023-11-07] MEDS: Acetaminophen 325 MG TABLET 650 MG PO (21:34)
[2023-11-08 02:55] VITALS: BP 134/60; PULSE 79; RESP 16; TEMP 36.2; O2SAT 99
[2023-11-08] MEDS: Acetaminophen 325 MG TABLET 650 MG PO (06:03)
[2023-11-08] MEDS: Levothyroxine Sodium 75 MCG TABLET PO (06:03)
[2023-11-08] MEDS: Trihexyphenidyl HCL 2 MG TABLET 1 MG PO ×2 (07:29→20:32)
[2023-11-08] MEDS: Fluticasone Propionate Nasal 16 GM SPRAY 2 SPRAY NOSTRIL-B (07:30)
[2023-11-08 07:45] VITALS: BP 131/63; PULSE 70; RESP 16; TEMP 36.2; O2SAT 99
--- NOTE | 2023-11-08 08:20 | P.PNIM_ITS ---
Subjective Subjective Date of Service: 11/08/23 Interval History: no complaints, pelasantly confused Physical Exam 2 Vital Signs: Vital Signs: Last Vital Signs Temp 97.2 F 11/08/23 07:45 Pulse 70 11/08/23 07:45 Resp 16 11/08/23 07:45 BP 131/63 11/08/23 07:45 Pulse Ox 99 11/08/23 07:45 O2 Del Method Room Air 11/08/23 07:45 BMI result Body Mass Index 20.5 Const: Other: Constitutional : Awake, interactive, not in distress Neck : Normal inspection, Supple Cardiovascular : RRR, no JVP Respiratory : good bilateral air entry, no wheezes or rhonchi Gastrointestinal: soft, lax, Non tender Skin : Warm, Dry Neurological : Alert & oriented to self only but otherwise confused and can get easily distracted, tremors, No focal deficit Psychological; pressure speech, flight of ideas, delusions Objective Data Active Medications Acetaminophen (Acetaminophen 325 Mg Tablet) 650 mg PO Q6H PRN PRN Reason: Pain, Mild (Pain Scale 1-3) Last Admin: 11/08/23 06:03 Dose: 650 mg Documented By: MABLE Enoxaparin Sodium (Enoxaparin Sodium 40 Mg/0.4 Ml Syringe) 40 mg SUBCUT Q24H [facility] Last Admin: 11/07/23 12:10 Dose: 40 mg Documented By: DAPHNE Fluticasone Propionate (Fluticasone Propionate Nasal 16 Gm [place]) 2 spray NOSTRIL-B DAILY [facility] Last Admin: 11/08/23 07:30 Dose: 2 spray Documented By: IGNACIO Levothyroxine Sodium (Levothyroxine Sodium 75 Mcg Tablet) 75 mcg PO DAILY@0630 [facility] Last Admin: 11/08/23 06:03 Dose: 75 mcg Documented By: MABLE Ondansetron HCl (Ondansetron Hcl 4 Mg/2 Ml Vial) 4 mg IVPUSH Q8H PRN PRN Reason: Nausea and Vomiting Trihexyphenidyl HCl (Trihexyphenidyl Hcl 2 Mg Tablet) 1 mg PO BID [facility] Last Admin: 11/08/23 07:29 Dose: 1 mg Documented By: IGNACIO Labs 10/14/23 13:09 10/16/23 05:55 Assessment and Plan (1) Cognitive decline: Status: Acute Plan 73F PMH Hypothyroid, anxiety who presented to ED 10/06/23 with AMS. found to be Covid19 positive at that point with increased weakness and confusion. was awaiting placement in ED and on 10/14/23 became more confused. Cognitive impairment Psych evaluation appreciated, patient does not have capacity to appoint hcp, will need guardian Metabolic encephalopathy 2/2 acute Hypernatremia on admission, resolved mental status back to baseline as Na level normalized Physical deconditioning PT eval recommending LTC Hx Covid 19 infx recent, repeat is negative Hypothyroidism Levothyroixne DVT PPx Lovenox The patient will need hospital stay pending guardianship and safe discharge plan Quality Stroke Does the patient have a stroke diagnosis?: No VTE Prior VTE?: No VTE Risk Level:: Medical - moderate - high VTE Device Contraindication: Treatment Not Indicated VTE Drug Contraindication: N/A - Med Ordered
[2023-11-08] MEDS: Enoxaparin Sodium 40 MG/0.4 ML SYRINGE SUBCUT (12:18)
[2023-11-08 15:19] VITALS: BP 148/67; PULSE 85; RESP 18; TEMP 36.4; O2SAT 98
[2023-11-08 19:47] VITALS: BP 154/66; PULSE 93; RESP 16; TEMP 37.3; O2SAT 97
[2023-11-09 04:00] VITALS: BP 139/67; PULSE 85; RESP 14; TEMP 36.3; O2SAT 99
[2023-11-09] MEDS: Levothyroxine Sodium 75 MCG TABLET PO (05:09)
[2023-11-09 07:27] VITALS: BP 129/61; PULSE 76; RESP 18; TEMP 36.7; O2SAT 98
[2023-11-09] MEDS: Trihexyphenidyl HCL 2 MG TABLET 1 MG PO ×2 (08:42→19:17)
[2023-11-09] MEDS: Fluticasone Propionate Nasal 16 GM SPRAY 2 SPRAY NOSTRIL-B (08:42)
--- NOTE | 2023-11-09 08:56 | MHC.CM.PN ---
PT AWAITING GUARDIANSHIP HEARING THEN LTC PLACEMENT ONCE MH IS OBTAINED. CM WILL CONTINUE TO FOLLOW FOR ANY CHANGE IN DC NEEDS/PLAN.
--- NOTE | 2023-11-09 09:03 | HO.PM.IMPN ---
Subjective Subjective Date of Service: 11/09/23 Interval History: no complaints, pelasantly confused Physical Exam Vital Signs: Vital Signs: Last Vital Signs Temp 98.0 F 11/09/23 07:27 Pulse 76 11/09/23 07:27 Resp 18 11/09/23 07:27 BP 129/61 11/09/23 07:27 Pulse Ox 98 11/09/23 07:27 O2 Del Method Room Air 11/09/23 07:27 BMI result Body Mass Index 20.5 Const: Other: Constitutional : Awake, interactive, not in distress Neck : Normal inspection, Supple Cardiovascular : RRR, no JVP Respiratory : good bilateral air entry, no wheezes or rhonchi Gastrointestinal: soft, lax, Non tender Skin : Warm, Dry Neurological : Alert & oriented to self only but otherwise confused and can get easily distracted, tremors, No focal deficit Psychological; pressure speech, flight of ideas, delusions Objective Data Active Medications Acetaminophen (Acetaminophen 325 Mg Tablet) 650 mg PO Q6H PRN PRN Reason: Pain, Mild (Pain Scale 1-3) Last Admin: 11/08/23 06:03 Dose: 650 mg Documented By: MABLE Enoxaparin Sodium (Enoxaparin Sodium 40 Mg/0.4 Ml Syringe) 40 mg SUBCUT Q24H [facility] Last Admin: 11/08/23 12:18 Dose: 40 mg Documented By: IGNACIO Fluticasone Propionate (Fluticasone Propionate Nasal 16 Gm [place]) 2 spray NOSTRIL-B DAILY [facility] Last Admin: 11/09/23 08:42 Dose: 2 spray Documented By: IGNACIO Levothyroxine Sodium (Levothyroxine Sodium 75 Mcg Tablet) 75 mcg PO DAILY@0630 [facility] Last Admin: 11/09/23 05:09 Dose: 75 mcg Documented By: MABLE Ondansetron HCl (Ondansetron Hcl 4 Mg/2 Ml Vial) 4 mg IVPUSH Q8H PRN PRN Reason: Nausea and Vomiting Trihexyphenidyl HCl (Trihexyphenidyl Hcl 2 Mg Tablet) 1 mg PO BID [facility] Last Admin: 11/09/23 08:42 Dose: 1 mg Documented By: IGNACIO Labs 10/14/23 13:09 10/16/23 05:55 Assessment and Plan (1) Cognitive decline: Status: Acute Plan 73F PMH Hypothyroid, anxiety who presented to ED 10/06/23 with AMS. found to be Covid19 positive at that point with increased weakness and confusion. was awaiting placement in ED and on 10/14/23 became more confused. Cognitive impairment Psych evaluation appreciated, patient does not have capacity to appoint hcp, will need guardian Metabolic encephalopathy 2/2 acute Hypernatremia on admission, resolved mental status back to baseline as Na level normalized Physical deconditioning PT eval recommending LTC Hx Covid 19 infx recent, repeat is negative Hypothyroidism Levothyroixne DVT PPx Lovenox The patient will need hospital stay pending guardianship and safe discharge plan Quality Stroke Does the patient have a stroke diagnosis?: No VTE Prior VTE?: No VTE Risk Level:: Medical - moderate - high VTE Device Contraindication: Treatment Not Indicated VTE Drug Contraindication: N/A - Med Ordered
[2023-11-09] MEDS: Enoxaparin Sodium 40 MG/0.4 ML SYRINGE SUBCUT (14:46)
[2023-11-09 15:09] VITALS: BP 108/54; PULSE 97; RESP 18; TEMP 36.3; O2SAT 96
[2023-11-09 19:27] VITALS: BP 123/56; PULSE 84; RESP 18; TEMP 37.2; O2SAT 99
[2023-11-10 03:10] VITALS: BP 153/67; PULSE 78; RESP 18; TEMP 36.3; O2SAT 96
[2023-11-10] MEDS: Levothyroxine Sodium 75 MCG TABLET PO (05:35)
[2023-11-10 07:28] VITALS: BP 131/60; PULSE 82; RESP 18; TEMP 36.5; O2SAT 95
[2023-11-10] MEDS: Fluticasone Propionate Nasal 16 GM SPRAY 2 SPRAY NOSTRIL-B (08:46)
[2023-11-10] MEDS: Trihexyphenidyl HCL 2 MG TABLET 1 MG PO ×2 (08:49→21:07)
[2023-11-10] MEDS: Enoxaparin Sodium 40 MG/0.4 ML SYRINGE SUBCUT (12:34)
--- NOTE | 2023-11-10 12:46 | MHC.CM.PN ---
PT AWAITING GUARDIANSHIP HEARING THEN LTC PLACEMENT ONCE MH IS OBTAINED. CM WILL CONTINUE TO FOLLOW FOR ANY CHANGE IN DC NEEDS/PLAN.
--- NOTE | 2023-11-10 14:29 | HO.PM.IMPN ---
Subjective Subjective Date of Service: 11/10/23 Interval History: Seen and evaluated this morning pleasingly delusional Denies any complaints Review of Systems Review of Systems: Yes all other systems are reviewed and are negative Physical Exam Vital Signs: Vital Signs: Last Vital Signs Temp 97.7 F 11/10/23 07:28 Pulse 82 11/10/23 07:28 Resp 18 11/10/23 07:28 BP 131/60 11/10/23 07:28 Pulse Ox 95 11/10/23 07:28 O2 Del Method Room Air 11/10/23 07:28 BMI result Body Mass Index 20.5 Const: Other: Constitutional : Awake, interactive, not in distress Neck : Normal inspection, Supple Cardiovascular : RRR, no JVP Respiratory : good bilateral air entry, no wheezes or rhonchi Gastrointestinal: soft, lax, Non tender Skin : Warm, Dry Neurological : Alert & oriented to self only but otherwise confused and can get easily distracted, tremors, No focal deficit Psychological; pressure speech, flight of ideas, delusions Objective Data Active Medications Acetaminophen (Acetaminophen 325 Mg Tablet) 650 mg PO Q6H PRN PRN Reason: Pain, Mild (Pain Scale 1-3) Last Admin: 11/08/23 06:03 Dose: 650 mg Documented By: MABLE Enoxaparin Sodium (Enoxaparin Sodium 40 Mg/0.4 Ml Syringe) 40 mg SUBCUT Q24H [facility] Last Admin: 11/10/23 12:34 Dose: 40 mg Documented By: KAYY Fluticasone Propionate (Fluticasone Propionate Nasal 16 Gm [place]) 2 spray NOSTRIL-B DAILY [facility] Last Admin: 11/10/23 08:46 Dose: 2 spray Documented By: DIEGO Levothyroxine Sodium (Levothyroxine Sodium 75 Mcg Tablet) 75 mcg PO DAILY@0630 [facility] Last Admin: 11/10/23 05:35 Dose: 75 mcg Documented By: SKY Ondansetron HCl (Ondansetron Hcl 4 Mg/2 Ml Vial) 4 mg IVPUSH Q8H PRN PRN Reason: Nausea and Vomiting Trihexyphenidyl HCl (Trihexyphenidyl Hcl 2 Mg Tablet) 1 mg PO BID [facility] Last Admin: 11/10/23 08:49 Dose: 1 mg Documented By: DIEGO Labs 10/14/23 13:09 10/16/23 05:55 Assessment and Plan (1) Cognitive decline: Status: Acute Plan 73F PMH Hypothyroid, anxiety who presented to ED 10/06/23 with AMS. found to be Covid19 positive at that point with increased weakness and confusion. was awaiting placement in ED and on 10/14/23 became more confused. Cognitive impairment Psych evaluation appreciated, patient does not have capacity to appoint hcp, will need guardian Metabolic encephalopathy 2/2 acute Hypernatremia on admission, resolved mental status back to baseline as Na level normalized Physical deconditioning PT eval recommending LTC Hx Covid 19 infx recent, repeat is negative Hypothyroidism Levothyroixne DVT PPx Lovenox The patient will need hospital stay pending guardianship and safe discharge plan Quality Stroke Does the patient have a stroke diagnosis?: No VTE Prior VTE?: No VTE Risk Level:: Medical - moderate - high VTE Device Contraindication: Treatment Not Indicated VTE Drug Contraindication: N/A - Med Ordered
[2023-11-10 15:09] VITALS: BP 130/60; PULSE 82; RESP 20; TEMP 36.7; O2SAT 98
[2023-11-10 19:05] VITALS: BP 125/60; PULSE 88; RESP 18; TEMP 36.7; O2SAT 97
[2023-11-11 03:01] VITALS: BP 129/62; PULSE 84; RESP 16; TEMP 36.4; O2SAT 96
[2023-11-11] MEDS: Levothyroxine Sodium 75 MCG TABLET PO (06:03)
[2023-11-11 07:41] VITALS: BP 143/58; PULSE 87; RESP 18; TEMP 36.3; O2SAT 96
[2023-11-11] MEDS: Trihexyphenidyl HCL 2 MG TABLET 1 MG PO ×2 (08:51→20:13)
[2023-11-11] MEDS: Fluticasone Propionate Nasal 16 GM SPRAY 2 SPRAY NOSTRIL-B (08:52)
[2023-11-11] MEDS: Enoxaparin Sodium 40 MG/0.4 ML SYRINGE SUBCUT (12:04)
--- NOTE | 2023-11-11 12:49 | HO.PM.IMPN ---
Subjective Subjective Date of Service: 11/11/23 Interval History: Seen and evaluated pleasingly delusional Denies complaints Review of Systems Review of Systems: Yes all other systems are reviewed and are negative Physical Exam Vital Signs: Vital Signs: Last Vital Signs Temp 97.3 F 11/11/23 07:41 Pulse 87 11/11/23 07:41 Resp 18 11/11/23 07:41 BP 143/58 H 11/11/23 07:41 Pulse Ox 96 11/11/23 07:41 O2 Del Method Room Air 11/11/23 07:41 BMI result Body Mass Index 20.5 Const: Other: Constitutional : Awake, interactive, not in distress Neck : Normal inspection, Supple Cardiovascular : RRR, no JVP Respiratory : good bilateral air entry, no wheezes or rhonchi Gastrointestinal: soft, lax, Non tender Skin : Warm, Dry Neurological : Alert & oriented to self only but otherwise confused and can get easily distracted, No focal deficit Psychological; pressure speech, flight of ideas, delusions Objective Data Active Medications Acetaminophen (Acetaminophen 325 Mg Tablet) 650 mg PO Q6H PRN PRN Reason: Pain, Mild (Pain Scale 1-3) Last Admin: 11/08/23 06:03 Dose: 650 mg Documented By: MABLE Enoxaparin Sodium (Enoxaparin Sodium 40 Mg/0.4 Ml Syringe) 40 mg SUBCUT Q24H [facility] Last Admin: 11/11/23 12:04 Dose: 40 mg Documented By: JENNIFER Fluticasone Propionate (Fluticasone Propionate Nasal 16 Gm [place]) 2 spray NOSTRIL-B DAILY [facility] Last Admin: 11/11/23 08:52 Dose: 2 spray Documented By: JENNIFER Levothyroxine Sodium (Levothyroxine Sodium 75 Mcg Tablet) 75 mcg PO DAILY@0630 [facility] Last Admin: 11/11/23 06:03 Dose: 75 mcg Documented By: CAROLYNN Ondansetron HCl (Ondansetron Hcl 4 Mg/2 Ml Vial) 4 mg IVPUSH Q8H PRN PRN Reason: Nausea and Vomiting Trihexyphenidyl HCl (Trihexyphenidyl Hcl 2 Mg Tablet) 1 mg PO BID [facility] Last Admin: 11/11/23 08:51 Dose: 1 mg Documented By: JENNIFER Labs 10/14/23 13:09 10/16/23 05:55 Assessment and Plan (1) Cognitive decline: Status: Acute Plan 73F PMH Hypothyroid, anxiety who presented to ED 10/06/23 with AMS. found to be Covid19 positive at that point with increased weakness and confusion. was awaiting placement in ED and on 10/14/23 became more confused. Cognitive impairment Psych evaluation appreciated, patient does not have capacity to appoint hcp, will need guardian get care team eval for [facility] admission Metabolic encephalopathy 2/2 acute Hypernatremia on admission, resolved mental status back to baseline as Na level normalized Physical deconditioning PT eval recommending LTC Hx Covid 19 infx recent, repeat is negative Hypothyroidism Levothyroixne DVT PPx Lovenox The patient will need hospital stay pending guardianship and safe discharge plan Quality Stroke Does the patient have a stroke diagnosis?: No VTE Prior VTE?: No VTE Risk Level:: Medical - moderate - high VTE Device Contraindication: Treatment Not Indicated VTE Drug Contraindication: N/A - Med Ordered
[2023-11-11 15:23] VITALS: BP 135/62; PULSE 87; RESP 18; TEMP 36.2; O2SAT 99
--- NOTE | 2023-11-11 17:03 | MHC.CARE ---
Patient evaluated by the CARE Team, inpatient psychiatric treatment is not recommended at this time. See written assessment for details. Desktop Support Engineer, Emmy Thompson, [employer] consulted, S3 provider, Dr. Mccullough updated with disposition.
[2023-11-11 19:25] VITALS: BP 139/64; PULSE 84; RESP 18; TEMP 36.2; O2SAT 98
[2023-11-12 03:38] VITALS: BP 136/62; PULSE 77; RESP 16; TEMP 36.7; O2SAT 96
[2023-11-12] MEDS: Levothyroxine Sodium 75 MCG TABLET PO (05:53)
[2023-11-12 08:00] VITALS: BP 129/61; PULSE 80; RESP 16; TEMP 36; O2SAT 95
[2023-11-12] MEDS: Trihexyphenidyl HCL 2 MG TABLET 1 MG PO ×2 (09:22→22:03)
[2023-11-12] MEDS: Fluticasone Propionate Nasal 16 GM SPRAY 2 SPRAY NOSTRIL-B (09:23)
[2023-11-12] MEDS: Enoxaparin Sodium 40 MG/0.4 ML SYRINGE SUBCUT (12:13)
--- NOTE | 2023-11-12 12:21 | HO.PM.IMPN ---
Subjective Subjective Date of Service: 11/12/23 Interval History: Seen and evaluated pleasingly delusional Denies complaints Review of Systems Review of Systems: Yes all other systems are reviewed and are negative Physical Exam Vital Signs: Vital Signs: Last Vital Signs Temp 96.8 F 11/12/23 08:00 Pulse 80 11/12/23 08:00 Resp 16 11/12/23 08:00 BP 129/61 11/12/23 08:00 Pulse Ox 95 11/12/23 08:00 O2 Del Method Room Air 11/12/23 08:00 BMI result Body Mass Index 20.5 Const: Other: Constitutional : Awake, interactive, not in distress Neck : Normal inspection, Supple Cardiovascular : RRR, no JVP Respiratory : good bilateral air entry, no wheezes or rhonchi Gastrointestinal: soft, lax, Non tender Skin : Warm, Dry Neurological : Alert & oriented to self only but otherwise confused and can get easily distracted, No focal deficit Psychological; pressure speech, flight of ideas, delusions Objective Data Active Medications Acetaminophen (Acetaminophen 325 Mg Tablet) 650 mg PO Q6H PRN PRN Reason: Pain, Mild (Pain Scale 1-3) Last Admin: 11/08/23 06:03 Dose: 650 mg Documented By: MABLE Enoxaparin Sodium (Enoxaparin Sodium 40 Mg/0.4 Ml Syringe) 40 mg SUBCUT Q24H [facility] Last Admin: 11/12/23 12:13 Dose: 40 mg Documented By: JENNIFER Fluticasone Propionate (Fluticasone Propionate Nasal 16 Gm [place]) 2 spray NOSTRIL-B DAILY [facility] Last Admin: 11/12/23 09:23 Dose: 2 spray Documented By: JENNIFER Levothyroxine Sodium (Levothyroxine Sodium 75 Mcg Tablet) 75 mcg PO DAILY@0630 [facility] Last Admin: 11/12/23 05:53 Dose: 75 mcg Documented By: CAROLYNN Ondansetron HCl (Ondansetron Hcl 4 Mg/2 Ml Vial) 4 mg IVPUSH Q8H PRN PRN Reason: Nausea and Vomiting Trihexyphenidyl HCl (Trihexyphenidyl Hcl 2 Mg Tablet) 1 mg PO BID [facility] Last Admin: 11/12/23 09:22 Dose: 1 mg Documented By: JENNIFER Labs 10/14/23 13:09 10/16/23 05:55 Assessment and Plan (1) Cognitive decline: Status: Acute Plan 73F PMH Hypothyroid, anxiety who presented to ED 10/06/23 with AMS. found to be Covid19 positive at that point with increased weakness and confusion. was awaiting placement in ED and on 10/14/23 became more confused. Cognitive impairment Psych evaluation appreciated, patient does not have capacity to appoint hcp, will need guardian care team did not feel [facility] admission at this point for Psych eval Metabolic encephalopathy 2/2 acute Hypernatremia on admission, resolved mental status back to baseline as Na level normalized Physical deconditioning PT eval recommending LTC Hx Covid 19 infx recent, repeat is negative Hypothyroidism Levothyroixne DVT PPx Lovenox The patient will need hospital stay pending guardianship and safe discharge plan Quality Stroke Does the patient have a stroke diagnosis?: No VTE Prior VTE?: No VTE Risk Level:: Medical - moderate - high VTE Device Contraindication: Treatment Not Indicated VTE Drug Contraindication: N/A - Med Ordered
[2023-11-12 15:02] VITALS: BP 131/58; PULSE 89; RESP 16; TEMP 36.7; O2SAT 96
--- NOTE | 2023-11-12 15:33 | PM.PSYCN ---
History of Present Illness Date of Service: 11/12/2023 Chief Complaint: Capacity to choose HCP Reason for Consult: delusions, pressure speech, for eval and medications advice Requesting physician: Aline Mendez Discussed with referring provider: Yes Sources of Information: patient interviewed and chart reviewed HPI Narrative: Per hospitalist note: Patient is a 73 year old female with PMH Hypothyroid, anxiety who presented to ED 10/06/23 with AMS. found to be Covid19 positive at that point with increased weakness and confusion. was awaiting placement in ED and on 10/14/23 became more confused. Cognitive impairment patient does not have capacity to appoint hcp, will need guardian care team did not feel [facility] admission at this point Consult was placed to psychiatry for delusions, pressure speech, for eval and medications advice. During consult patient presents anxious and confused. Pt would not allow PCT to leave room since she was not familiar with T/W. Pt did not present with pressured speech. She was oriented to place and situation. Tangential; pt stated, my father on Good Wednesday. I got two hours sleep . Patient did report she used to take klonopin for anxiety; external med history shows, klonopin 0.25mg PO BID. Medical Evaluation Reviewed: Yes Review of Systems Review of Systems Yes Unobtainable due to mental status [facility] History Hypothyroid Diagnostics Vital Signs (24Hr): Vital Signs - 24 hr 11/11/23 19:25 11/12/23 03:38 11/12/23 08:00 Temperature 97.2 F 98.0 F 96.8 F Pulse Rate 84 77 80 Respiratory Rate 18 16 16 Blood Pressure 139/64 136/62 129/61 Pulse Oximetry 98 96 95 Oxygen Delivery Method Room Air Room Air Room Air 11/12/23 15:02 Temperature 98.0 F Pulse Rate 89 Respiratory Rate 16 Blood Pressure 131/58 L Pulse Oximetry 96 Oxygen Delivery Method Room Air BMI result Body Mass Index 20.5 Labs 10/14/23 13:09 10/16/23 05:55 Imaging Radiology Impressions: ITS Impressions Cervical Spine CT 10/08/23 14:22 IMPRESSION: 1. No acute intracranial process seen. 2. There is no acute fracture, dislocation or subluxation in cervical spine. There are degenerative disc changes C3-C4 and C4-C5 disc levels with ventral and posterior spondylosis. Head CT 10/08/23 14:22 IMPRESSION: 1. No acute intracranial process seen. 2. There is no acute fracture, dislocation or subluxation in cervical spine. There are degenerative disc changes C3-C4 and C4-C5 disc levels with ventral and posterior spondylosis. Chest X-Ray 10/08/23 16:00 IMPRESSION: 1. Increased interstitial markings in both lungs without acute consolidation or pleural effusion. 2. Small left upper lobe nodules. Recommend CT correlation. Mental Status Exam Mental Status Exam Patient Appearance: Disheveled Patient Orientation: Place and Situation Level of Consciousness: Awake Patient Behavior: Guarded, Anxious and Confused Mood Description: Anxious Affect Description: Anxious Speech Pattern: Whisper Thought Content: positive for Tangential Judgement: Poor Medications Medications Current Medications Acetaminophen (Acetaminophen 325 Mg Tablet) 650 mg PO Q6H PRN PRN Reason: Pain, Mild (Pain Scale 1-3) Last Admin: 11/08/23 06:03 Dose: 650 mg Benzocaine (Throat Lozenge, Medicated Lozenge) 1 lozenge MUCOUS MEM Q2H PRN PRN Reason: Sore Throat Enoxaparin Sodium (Enoxaparin Sodium 40 Mg/0.4 Ml Syringe) 40 mg SUBCUT Q24H [facility] Last Admin: 11/12/23 12:13 Dose: 40 mg Fluticasone Propionate (Fluticasone Propionate Nasal 16 Gm [place]) 2 spray NOSTRIL-B DAILY [facility] Last Admin: 11/12/23 09:23 Dose: 2 spray Levothyroxine Sodium (Levothyroxine Sodium 75 Mcg Tablet) 75 mcg PO DAILY@0630 [facility] Last Admin: 11/12/23 05:53 Dose: 75 mcg Ondansetron HCl (Ondansetron Hcl 4 Mg/2 Ml Vial) 4 mg IVPUSH Q8H PRN PRN Reason: Nausea and Vomiting Trihexyphenidyl HCl (Trihexyphenidyl Hcl 2 Mg Tablet) 1 mg PO BID [facility] Last Admin: 11/12/23 09:22 Dose: 1 mg Allergies Allergies Allergy/AdvReac Type Severity Reaction Status Date / Time No Known Allergies Allergy Verified 10/08/23 12:40 [No Known Allergies*] Assessment & Plan Assessment & Plan (1) Cognitive decline: Status: Acute Code(s): R41.89 - Other symptoms and signs involving cognitive functions and awareness Plan Recommendation: Pt does not present with pressured speech at this time. Pt did not disclose any delusions during assessment. Presents anxious. Restart home medication of Klonopin 0.25mg PO BID (monitor BP) Total time managing care of this patient today _30___ minutes. Informed Consent: does not understand
[2023-11-12 19:54] VITALS: BP 126/58; PULSE 86; RESP 14; TEMP 37.1; O2SAT 96
[2023-11-12 20:00] VITALS: BP 126/58; PULSE 86; RESP 14; TEMP 37.1; O2SAT 96
[2023-11-13 03:26] VITALS: BP 111/56; PULSE 87; RESP 14; TEMP 36.3; O2SAT 96
[2023-11-13 08:00] VITALS: BP 123/58; PULSE 82; RESP 18; TEMP 36.8; O2SAT 96
--- NOTE | 2023-11-13 08:22 | P.PNIM_ITS ---
Subjective Subjective Date of Service: 11/13/23 Interval History: Seen and evaluated was sleeping, pleasingly confused Denies complaints Review of Systems Review of Systems: Yes all other systems are reviewed and are negative Physical Exam 2 Vital Signs: Vital Signs: Last Vital Signs Temp 98.3 F 11/13/23 08:00 Pulse 82 11/13/23 08:00 Resp 18 11/13/23 08:00 BP 123/58 L 11/13/23 08:00 Pulse Ox 96 11/13/23 08:00 O2 Del Method Room Air 11/13/23 08:00 BMI result Body Mass Index 20.5 Const: Other: Constitutional : Awake, interactive, not in distress Neck : Normal inspection, Supple Cardiovascular : RRR, no JVP Respiratory : good bilateral air entry, no wheezes or rhonchi Gastrointestinal: soft, lax, Non tender Skin : Warm, Dry Neurological : Alert & oriented to self only but otherwise confused and can get easily distracted, No focal deficit Objective Data Active Medications Acetaminophen (Acetaminophen 325 Mg Tablet) 650 mg PO Q6H PRN PRN Reason: Pain, Mild (Pain Scale 1-3) Last Admin: 11/08/23 06:03 Dose: 650 mg Documented By: MABLE Benzocaine (Throat Lozenge, Medicated Lozenge) 1 lozenge MUCOUS MEM Q2H PRN PRN Reason: Sore Throat Clonazepam (Clonazepam 0.125 Mg Tab.Rapdis) 0.25 mg PO BID [facility] Last Admin: 11/12/23 22:02 Dose: 0.25 mg Documented By: YASMINE Enoxaparin Sodium (Enoxaparin Sodium 40 Mg/0.4 Ml Syringe) 40 mg SUBCUT Q24H [facility] Last Admin: 11/12/23 12:13 Dose: 40 mg Documented By: JENNIFER Fluticasone Propionate (Fluticasone Propionate Nasal 16 Gm [place]) 2 spray NOSTRIL-B DAILY [facility] Last Admin: 11/12/23 09:23 Dose: 2 spray Documented By: JENNIFER Levothyroxine Sodium (Levothyroxine Sodium 75 Mcg Tablet) 75 mcg PO DAILY@0630 [facility] Last Admin: 11/12/23 05:53 Dose: 75 mcg Documented By: CAROLYNN Ondansetron HCl (Ondansetron Hcl 4 Mg/2 Ml Vial) 4 mg IVPUSH Q8H PRN PRN Reason: Nausea and Vomiting Trihexyphenidyl HCl (Trihexyphenidyl Hcl 2 Mg Tablet) 1 mg PO BID [facility] Last Admin: 11/12/23 22:03 Dose: 1 mg Documented By: YASMINE Labs 10/14/23 13:09 10/16/23 05:55 Assessment and Plan (1) Cognitive decline: Status: Acute Plan 73F PMH Hypothyroid, anxiety who presented to ED 10/06/23 with AMS. found to be Covid19 positive at that point with increased weakness and confusion. was awaiting placement in ED and on 10/14/23 became more confused. Cognitive impairment Psych evaluation appreciated, patient does not have capacity to appoint hcp, will need guardian care team did not feel [facility] admission at this point Psych input appreciated, restart Clonazepam Metabolic encephalopathy 2/2 acute Hypernatremia on admission, resolved mental status back to baseline as Na level normalized Physical deconditioning PT eval recommending LTC Hx Covid 19 infx recent, repeat is negative Hypothyroidism Levothyroixne DVT PPx Lovenox The patient will need hospital stay pending guardianship and safe discharge plan Quality Stroke Does the patient have a stroke diagnosis?: No VTE Prior VTE?: No VTE Risk Level:: Medical - moderate - high VTE Device Contraindication: Treatment Not Indicated VTE Drug Contraindication: N/A - Med Ordered
[2023-11-13] MEDS: Trihexyphenidyl HCL 2 MG TABLET 1 MG PO ×2 (09:23→19:55)
[2023-11-13] MEDS: Fluticasone Propionate Nasal 16 GM SPRAY 2 SPRAY NOSTRIL-B (09:29)
[2023-11-13] MEDS: Enoxaparin Sodium 40 MG/0.4 ML SYRINGE SUBCUT (13:48)
[2023-11-13 15:25] VITALS: BP 118/58; PULSE 82; RESP 18; TEMP 36.6; O2SAT 98
[2023-11-13 19:43] VITALS: BP 143/63; PULSE 75; RESP 18; TEMP 36.9; O2SAT 99
[2023-11-14 04:00] VITALS: BP 143/66; PULSE 80; RESP 16; TEMP 36.6; O2SAT 96
[2023-11-14] MEDS: Levothyroxine Sodium 75 MCG TABLET PO (06:40)
[2023-11-14 07:20] VITALS: BP 147/63; PULSE 77; RESP 18; TEMP 36.9; O2SAT 100
[2023-11-14] MEDS: Trihexyphenidyl HCL 2 MG TABLET 1 MG PO ×2 (08:38→21:18)
[2023-11-14] MEDS: Fluticasone Propionate Nasal 16 GM SPRAY 2 SPRAY NOSTRIL-B (08:41)
--- NOTE | 2023-11-14 10:06 | P.PNIM_ITS ---
Subjective Subjective Date of Service: 11/14/23 Interval History: Seen and evaluated Alert, having breakfast, pleasingly confused Denies complaints Review of Systems Review of Systems: Yes all other systems are reviewed and are negative Physical Exam 2 Vital Signs: Vital Signs: Last Vital Signs Temp 98.4 F 11/14/23 07:20 Pulse 77 11/14/23 07:20 Resp 18 11/14/23 07:20 BP 147/63 H 11/14/23 07:20 Pulse Ox 100 11/14/23 07:20 O2 Del Method Room Air 11/14/23 07:20 BMI result Body Mass Index 20.5 Const: Other: Constitutional : Awake, interactive, not in distress Neck : Normal inspection, Supple Cardiovascular : RRR, no JVP Respiratory : good bilateral air entry, no wheezes or rhonchi Gastrointestinal: soft, lax, Non tender Skin : Warm, Dry Neurological : Alert & oriented to self only but otherwise confused and can get easily distracted, No focal deficit Objective Data Active Medications Acetaminophen (Acetaminophen 325 Mg Tablet) 650 mg PO Q6H PRN PRN Reason: Pain, Mild (Pain Scale 1-3) Last Admin: 11/08/23 06:03 Dose: 650 mg Documented By: MABLE Benzocaine (Throat Lozenge, Medicated Lozenge) 1 lozenge MUCOUS MEM Q2H PRN PRN Reason: Sore Throat Clonazepam (Clonazepam 0.125 Mg Tab.Rapdis) 0.25 mg PO BID [facility] Last Admin: 11/14/23 08:38 Dose: 0.25 mg Documented By: NYLA Enoxaparin Sodium (Enoxaparin Sodium 40 Mg/0.4 Ml Syringe) 40 mg SUBCUT Q24H [facility] Last Admin: 11/13/23 13:48 Dose: 40 mg Documented By: IGNACIO Fluticasone Propionate (Fluticasone Propionate Nasal 16 Gm [place]) 2 spray NOSTRIL-B DAILY [facility] Last Admin: 11/14/23 08:41 Dose: 2 spray Documented By: NYLA Levothyroxine Sodium (Levothyroxine Sodium 75 Mcg Tablet) 75 mcg PO DAILY@0630 [facility] Last Admin: 11/14/23 06:40 Dose: 75 mcg Documented By: YASMINE Ondansetron HCl (Ondansetron Hcl 4 Mg/2 Ml Vial) 4 mg IVPUSH Q8H PRN PRN Reason: Nausea and Vomiting Trihexyphenidyl HCl (Trihexyphenidyl Hcl 2 Mg Tablet) 1 mg PO BID [facility] Last Admin: 11/14/23 08:38 Dose: 1 mg Documented By: NYLA Labs 10/14/23 13:09 10/16/23 05:55 Assessment and Plan (1) Cognitive decline: Status: Acute Plan 73F PMH Hypothyroid, anxiety who presented to ED 10/06/23 with AMS. found to be Covid19 positive at that point with increased weakness and confusion. was awaiting placement in ED and on 10/14/23 became more confused. Cognitive impairment Psych evaluation appreciated, patient does not have capacity to appoint hcp, will need guardian care team did not feel [facility] admission at this point Psych input appreciated, restart Clonazepam Metabolic encephalopathy 2/2 acute Hypernatremia on admission, resolved mental status back to baseline as Na level normalized Physical deconditioning PT eval recommending LTC Hx Covid 19 infx recent, repeat is negative Hypothyroidism Levothyroixne DVT PPx Lovenox The patient will need hospital stay pending guardianship and safe discharge plan Quality Stroke Does the patient have a stroke diagnosis?: No VTE Prior VTE?: No VTE Risk Level:: Medical - moderate - high VTE Device Contraindication: Treatment Not Indicated VTE Drug Contraindication: N/A - Med Ordered
[2023-11-14] MEDS: Enoxaparin Sodium 40 MG/0.4 ML SYRINGE SUBCUT (12:01)
[2023-11-14 16:49] VITALS: BP 142/60; PULSE 81; RESP 20; TEMP 36.3; O2SAT 96
[2023-11-14 20:00] VITALS: BP 157/67; PULSE 84; RESP 16; TEMP 37.1; O2SAT 98
[2023-11-15 03:09] VITALS: BP 137/62; PULSE 75; RESP 16; TEMP 36.6; O2SAT 97
[2023-11-15] MEDS: Levothyroxine Sodium 75 MCG TABLET PO (05:44)
[2023-11-15] MEDS: Trihexyphenidyl HCL 2 MG TABLET 1 MG PO ×2 (10:43→20:02)
--- NOTE | 2023-11-15 11:08 | MHC.CM.PN ---
EMR reviewed. Patient continues to await guardianship. 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 CM will continue to follow for safe dc.
--- NOTE | 2023-11-15 11:26 | HO.PM.IMPN ---
Subjective Subjective Date of Service: 11/15/23 Interval History: Seen and evaluated Alert, pleasingly confused red eye this morning with reported itching Denies complaints Review of Systems Review of Systems: Yes Unobtainable due to mental status Physical Exam Vital Signs: Vital Signs: Last Vital Signs Temp 97.8 F 11/15/23 03:09 Pulse 75 11/15/23 03:09 Resp 16 11/15/23 03:09 BP 137/62 11/15/23 03:09 Pulse Ox 97 11/15/23 03:09 O2 Del Method Room Air 11/15/23 03:09 BMI result Body Mass Index 20.5 Const: Other: Constitutional : Awake, interactive, not in distress Neck : Normal inspection, Supple Cardiovascular : RRR, no JVP Respiratory : good bilateral air entry, no wheezes or rhonchi Gastrointestinal: soft, lax, Non tender Skin : Warm, Dry Neurological : Alert & oriented to self only but otherwise confused and can get easily distracted, No focal deficit Objective Data Active Medications Acetaminophen (Acetaminophen 325 Mg Tablet) 650 mg PO Q6H PRN PRN Reason: Pain, Mild (Pain Scale 1-3) Last Admin: 11/08/23 06:03 Dose: 650 mg Documented By: MABLE Artificial Tears (Artificial Tears 15 Ml Drops) 2 drop EYE-BOTH Q4H PRN PRN Reason: Dry Eyes Benzocaine (Throat Lozenge, Medicated Lozenge) 1 lozenge MUCOUS MEM Q2H PRN PRN Reason: Sore Throat Clonazepam (Clonazepam 0.125 Mg Tab.Rapdis) 0.25 mg PO BID [facility] Last Admin: 11/15/23 10:43 Dose: 0.25 mg Documented By: CHILO Enoxaparin Sodium (Enoxaparin Sodium 40 Mg/0.4 Ml Syringe) 40 mg SUBCUT Q24H [facility] Last Admin: 11/14/23 12:01 Dose: 40 mg Documented By: NYLA Fluticasone Propionate (Fluticasone Propionate Nasal 16 Gm [place]) 2 spray NOSTRIL-B DAILY [facility] Last Admin: 11/15/23 10:43 Dose: Not Given Documented By: CHILO Non-Admin Reason: Patient Refused Ketotifen Fumarate (Ketotifen Fumarate 0.025% Oph 5 Ml Drpbtl) 1 drop EYE-RIGHT BID [facility] Levothyroxine Sodium (Levothyroxine Sodium 75 Mcg Tablet) 75 mcg PO DAILY@0630 [facility] Last Admin: 11/15/23 05:44 Dose: 75 mcg Documented By: CAROLYNN Ondansetron HCl (Ondansetron Hcl 4 Mg/2 Ml Vial) 4 mg IVPUSH Q8H PRN PRN Reason: Nausea and Vomiting Trihexyphenidyl HCl (Trihexyphenidyl Hcl 2 Mg Tablet) 1 mg PO BID [facility] Last Admin: 11/15/23 10:43 Dose: 1 mg Documented By: CHILO Labs 10/14/23 13:09 10/16/23 05:55 Assessment and Plan (1) Cognitive decline: Status: Acute Plan 73F PMH Hypothyroid, anxiety who presented to ED 10/06/23 with AMS. found to be Covid19 positive at that point with increased weakness and confusion. was awaiting placement in ED and on 10/14/23 became more confused. Cognitive impairment Psych evaluation appreciated, patient does not have capacity to appoint hcp, will need guardian care team did not feel [facility] admission at this point Psych input appreciated, restart Clonazepam Metabolic encephalopathy 2/2 acute Hypernatremia on admission, resolved mental status back to baseline as Na level normalized Physical deconditioning PT eval recommending LTC Hx Covid 19 infx recent, repeat is negative Hypothyroidism Levothyroixne red eye artificial tears, eye drops DVT PPx Lovenox The patient will need hospital stay pending guardianship and safe discharge plan Quality Stroke Does the patient have a stroke diagnosis?: No VTE Prior VTE?: No VTE Risk Level:: Medical - moderate - high VTE Device Contraindication: Treatment Not Indicated VTE Drug Contraindication: N/A - Med Ordered
[2023-11-15 11:33] VITALS: BP 129/59; PULSE 99; RESP 18; TEMP 37; O2SAT 99
[2023-11-15] MEDS: Ketotifen Fumarate 0.025% Oph 5 ML DRPBTL 1 DROP EYE-RIGHT ×2 (12:39→19:57)
[2023-11-15] MEDS: Enoxaparin Sodium 40 MG/0.4 ML SYRINGE SUBCUT (12:39)
[2023-11-15] MEDS: Artificial Tears 15 ML DROPS 2 DROP EYE-BOTH (12:39)
[2023-11-15 15:06] VITALS: BP 134/59; PULSE 89; RESP 18; TEMP 36.6; O2SAT 98
[2023-11-15 20:00] VITALS: BP 147/67; PULSE 90; RESP 16; TEMP 36.7; O2SAT 99
[2023-11-16 04:00] VITALS: BP 131/58; PULSE 79; RESP 16; TEMP 36.4; O2SAT 99
[2023-11-16] MEDS: Levothyroxine Sodium 75 MCG TABLET PO (05:40)
[2023-11-16 08:00] VITALS: BP 153/68; PULSE 84; RESP 16; TEMP 37.2; O2SAT 99
[2023-11-16] MEDS: Ketotifen Fumarate 0.025% Oph 5 ML DRPBTL 1 DROP EYE-RIGHT ×2 (09:05→20:24)
[2023-11-16] MEDS: Trihexyphenidyl HCL 2 MG TABLET 1 MG PO ×2 (09:05→20:24)
--- NOTE | 2023-11-16 10:19 | HO.PM.IMPN ---
Subjective Subjective Date of Service: 11/16/23 Interval History: no complaints Physical Exam Vital Signs: Vital Signs: Last Vital Signs Temp 97.6 F 11/16/23 04:00 Pulse 79 11/16/23 04:00 Resp 16 11/16/23 04:00 BP 131/58 L 11/16/23 04:00 Pulse Ox 99 11/16/23 04:00 O2 Del Method Room Air 11/16/23 04:00 BMI result Body Mass Index 20.5 Const: Other: Constitutional : Awake, interactive, not in distress Neck : Normal inspection, Supple Cardiovascular : RRR, no JVP Respiratory : good bilateral air entry, no wheezes or rhonchi Gastrointestinal: soft, lax, Non tender Skin : Warm, Dry Neurological : Alert & oriented to self only but otherwise confused and can get easily distracted, No focal deficit Objective Data Active Medications Acetaminophen (Acetaminophen 325 Mg Tablet) 650 mg PO Q6H PRN PRN Reason: Pain, Mild (Pain Scale 1-3) Last Admin: 11/08/23 06:03 Dose: 650 mg Documented By: MABLE Artificial Tears (Artificial Tears 15 Ml Drops) 2 drop EYE-BOTH Q4H PRN PRN Reason: Dry Eyes Last Admin: 11/15/23 12:39 Dose: 2 drop Documented By: CHILO Benzocaine (Throat Lozenge, Medicated Lozenge) 1 lozenge MUCOUS MEM Q2H PRN PRN Reason: Sore Throat Clonazepam (Clonazepam 0.125 Mg Tab.Rapdis) 0.25 mg PO BID [facility] Last Admin: 11/16/23 09:05 Dose: 0.25 mg Documented By: CHILO Enoxaparin Sodium (Enoxaparin Sodium 40 Mg/0.4 Ml Syringe) 40 mg SUBCUT Q24H [facility] Last Admin: 11/15/23 12:39 Dose: 40 mg Documented By: CHILO Fluticasone Propionate (Fluticasone Propionate Nasal 16 Gm [place]) 2 spray NOSTRIL-B DAILY [facility] Last Admin: 11/16/23 09:05 Dose: Not Given Documented By: CHILO Non-Admin Reason: Patient Refused Ketotifen Fumarate (Ketotifen Fumarate 0.025% Oph 5 Ml Drpbtl) 1 drop EYE-RIGHT BID [facility] Last Admin: 11/16/23 09:05 Dose: 1 drop Documented By: CHILO Levothyroxine Sodium (Levothyroxine Sodium 75 Mcg Tablet) 75 mcg PO DAILY@0630 [facility] Last Admin: 11/16/23 05:40 Dose: 75 mcg Documented By: SATYA Ondansetron HCl (Ondansetron Hcl 4 Mg/2 Ml Vial) 4 mg IVPUSH Q8H PRN PRN Reason: Nausea and Vomiting Trihexyphenidyl HCl (Trihexyphenidyl Hcl 2 Mg Tablet) 1 mg PO BID [facility] Last Admin: 11/16/23 09:05 Dose: 1 mg Documented By: CHILO Labs 10/14/23 13:09 10/16/23 05:55 Assessment and Plan (1) Cognitive decline: Status: Acute Plan 73F PMH Hypothyroid, anxiety who presented to ED 10/06/23 with AMS. found to be Covid19 positive at that point with increased weakness and confusion. was awaiting placement in ED and on 10/14/23 became more confused. Cognitive impairment Psych evaluation appreciated, patient does not have capacity to appoint hcp, will need guardian care team did not feel [facility]-psych admission at this point Psych input appreciated, restarted Clonazepam Metabolic encephalopathy 2/2 acute Hypernatremia on admission, resolved mental status back to baseline as Na level normalized Physical deconditioning PT eval recommending LTC Hx Covid 19 infx recent, repeat is negative Hypothyroidism Levothyroixne red eye artificial tears, eye drops DVT PPx Lovenox The patient will need hospital stay pending guardianship and safe discharge plan Quality Stroke Does the patient have a stroke diagnosis?: No VTE Prior VTE?: No VTE Risk Level:: Medical - moderate - high VTE Device Contraindication: Treatment Not Indicated VTE Drug Contraindication: N/A - Med Ordered
[2023-11-16] MEDS: Enoxaparin Sodium 40 MG/0.4 ML SYRINGE SUBCUT (12:57)
[2023-11-16 15:16] VITALS: BP 147/62; PULSE 78; RESP 18; TEMP 36.6; O2SAT 100
[2023-11-17 04:00] VITALS: BP 110/51; PULSE 79; RESP 18; TEMP 36.4; O2SAT 98
[2023-11-17] MEDS: Levothyroxine Sodium 75 MCG TABLET PO (05:50)
[2023-11-17 06:54] VITALS: BP 118/68; PULSE 65; RESP 17; TEMP 36.4; O2SAT 95
--- NOTE | 2023-11-17 08:36 | P.PNIM_ITS ---
Subjective Subjective Date of Service: 11/17/23 Interval History: no complaints Physical Exam 2 Vital Signs: Vital Signs: Last Vital Signs Temp 97.6 F 11/17/23 06:54 Pulse 65 11/17/23 06:54 Resp 17 11/17/23 06:54 BP 118/68 11/17/23 06:54 Pulse Ox 95 11/17/23 06:54 O2 Del Method Room Air 11/17/23 06:54 BMI result Body Mass Index 20.5 Const: Other: Constitutional : Awake, interactive, not in distress Neck : Normal inspection, Supple Cardiovascular : RRR, no JVP Respiratory : good bilateral air entry, no wheezes or rhonchi Gastrointestinal: soft, lax, Non tender Skin : Warm, Dry Neurological : Alert & oriented to self only but otherwise confused and can get easily distracted, No focal deficit Objective Data Active Medications Acetaminophen (Acetaminophen 325 Mg Tablet) 650 mg PO Q6H PRN PRN Reason: Pain, Mild (Pain Scale 1-3) Last Admin: 11/08/23 06:03 Dose: 650 mg Documented By: MABLE Artificial Tears (Artificial Tears 15 Ml Drops) 2 drop EYE-BOTH Q4H PRN PRN Reason: Dry Eyes Last Admin: 11/15/23 12:39 Dose: 2 drop Documented By: CHILO Benzocaine (Throat Lozenge, Medicated Lozenge) 1 lozenge MUCOUS MEM Q2H PRN PRN Reason: Sore Throat Clonazepam (Clonazepam 0.125 Mg Tab.Rapdis) 0.25 mg PO BID [facility] Last Admin: 11/16/23 20:24 Dose: 0.25 mg Documented By: DALIA Enoxaparin Sodium (Enoxaparin Sodium 40 Mg/0.4 Ml Syringe) 40 mg SUBCUT Q24H [facility] Last Admin: 11/16/23 12:57 Dose: 40 mg Documented By: CHILO Fluticasone Propionate (Fluticasone Propionate Nasal 16 Gm [place]) 2 spray NOSTRIL-B DAILY [facility] Last Admin: 11/16/23 09:05 Dose: Not Given Documented By: CHILO Non-Admin Reason: Patient Refused Ketotifen Fumarate (Ketotifen Fumarate 0.025% Oph 5 Ml Drpbtl) 1 drop EYE-RIGHT BID [facility] Last Admin: 11/16/23 20:24 Dose: 1 drop Documented By: DALIA Levothyroxine Sodium (Levothyroxine Sodium 75 Mcg Tablet) 75 mcg PO DAILY@0630 [facility] Last Admin: 11/17/23 05:50 Dose: 75 mcg Documented By: DALIA Ondansetron HCl (Ondansetron Hcl 4 Mg/2 Ml Vial) 4 mg IVPUSH Q8H PRN PRN Reason: Nausea and Vomiting Trihexyphenidyl HCl (Trihexyphenidyl Hcl 2 Mg Tablet) 1 mg PO BID [facility] Last Admin: 11/16/23 20:24 Dose: 1 mg Documented By: DALIA Labs 10/14/23 13:09 10/16/23 05:55 Assessment and Plan (1) Cognitive decline: Status: Acute Plan 73F PMH Hypothyroid, anxiety who presented to ED 10/06/23 with AMS. found to be Covid19 positive at that point with increased weakness and confusion. was awaiting placement in ED and on 10/14/23 became more confused. Cognitive impairment Psych evaluation appreciated, patient does not have capacity to appoint hcp, will need guardian care team did not feel [facility]-psych admission at this point Psych input appreciated, restarted Clonazepam Metabolic encephalopathy 2/2 acute Hypernatremia on admission, resolved mental status back to baseline as Na level normalized Physical deconditioning PT eval recommending LTC Hx Covid 19 infx recent, repeat is negative Hypothyroidism Levothyroixne red eye artificial tears, eye drops DVT PPx Lovenox The patient will need hospital stay pending guardianship and safe discharge plan Quality Stroke Does the patient have a stroke diagnosis?: No VTE Prior VTE?: No VTE Risk Level:: Medical - moderate - high VTE Device Contraindication: Treatment Not Indicated VTE Drug Contraindication: N/A - Med Ordered
[2023-11-17] MEDS: Trihexyphenidyl HCL 2 MG TABLET 1 MG PO ×2 (08:45→20:52)
[2023-11-17] MEDS: Artificial Tears 15 ML DROPS 2 DROP EYE-BOTH (08:46)
[2023-11-17] MEDS: Fluticasone Propionate Nasal 16 GM SPRAY 2 SPRAY NOSTRIL-B (08:48)
[2023-11-17] MEDS: Ketotifen Fumarate 0.025% Oph 5 ML DRPBTL 1 DROP EYE-RIGHT ×2 (11:12→21:28)
--- NOTE | 2023-11-17 12:16 | MHC.CM.PN ---
EMR reviewed. Patient continues to await guardianship. Will pursue [employer] care payor and placement once guardianship is obtained. CM will continue to follow for safe dc.
[2023-11-17] MEDS: Enoxaparin Sodium 40 MG/0.4 ML SYRINGE SUBCUT (14:54)
[2023-11-17 15:27] VITALS: BP 104/53; PULSE 97; RESP 18; TEMP 36.6; O2SAT 97
[2023-11-17 19:52] VITALS: BP 120/56; PULSE 85; RESP 18; TEMP 37.1; O2SAT 99
[2023-11-17] MEDS: Acetaminophen 325 MG TABLET 650 MG PO (20:51)
[2023-11-18 03:15] VITALS: BP 127/59; PULSE 76; RESP 16; TEMP 36; O2SAT 96
[2023-11-18] MEDS: Levothyroxine Sodium 75 MCG TABLET PO (05:30)
[2023-11-18 07:19] VITALS: BP 117/56; PULSE 78; RESP 16; TEMP 36.4; O2SAT 97
--- NOTE | 2023-11-18 08:47 | P.PNIM_ITS ---
Subjective Subjective Date of Service: 11/18/23 Interval History: no complaints Physical Exam 2 Vital Signs: Vital Signs: Last Vital Signs Temp 97.6 F 11/18/23 07:19 Pulse 78 11/18/23 07:19 Resp 16 11/18/23 07:19 BP 117/56 L 11/18/23 07:19 Pulse Ox 97 11/18/23 07:19 O2 Del Method Room Air 11/18/23 07:19 BMI result Body Mass Index 20.5 Const: Other: Constitutional : Awake, interactive, not in distress Neck : Normal inspection, Supple Cardiovascular : RRR, no JVP Respiratory : good bilateral air entry, no wheezes or rhonchi Gastrointestinal: soft, lax, Non tender Skin : Warm, Dry Neurological : Alert & oriented to self only but otherwise confused and can get easily distracted, No focal deficit Objective Data Active Medications Acetaminophen (Acetaminophen 325 Mg Tablet) 650 mg PO Q6H PRN PRN Reason: Pain, Mild (Pain Scale 1-3) Last Admin: 11/17/23 20:51 Dose: 650 mg Documented By: MABLE Artificial Tears (Artificial Tears 15 Ml Drops) 2 drop EYE-BOTH Q4H PRN PRN Reason: Dry Eyes Last Admin: 11/17/23 08:46 Dose: 2 drop Documented By: IGNACIO Benzocaine (Throat Lozenge, Medicated Lozenge) 1 lozenge MUCOUS MEM Q2H PRN PRN Reason: Sore Throat Enoxaparin Sodium (Enoxaparin Sodium 40 Mg/0.4 Ml Syringe) 40 mg SUBCUT Q24H [facility] Last Admin: 11/17/23 14:54 Dose: 40 mg Documented By: IGNACIO Fluticasone Propionate (Fluticasone Propionate Nasal 16 Gm [place]) 2 spray NOSTRIL-B DAILY [facility] Last Admin: 11/17/23 08:48 Dose: 2 spray Documented By: IGNACIO Ketotifen Fumarate (Ketotifen Fumarate 0.025% Oph 5 Ml Drpbtl) 1 drop EYE-RIGHT BID [facility] Last Admin: 11/17/23 21:28 Dose: 1 drop Documented By: MABLE Levothyroxine Sodium (Levothyroxine Sodium 75 Mcg Tablet) 75 mcg PO DAILY@0630 [facility] Last Admin: 11/18/23 05:30 Dose: 75 mcg Documented By: TANMAY Ondansetron HCl (Ondansetron Hcl 4 Mg/2 Ml Vial) 4 mg IVPUSH Q8H PRN PRN Reason: Nausea and Vomiting Trihexyphenidyl HCl (Trihexyphenidyl Hcl 2 Mg Tablet) 1 mg PO BID [facility] Last Admin: 11/17/23 20:52 Dose: 1 mg Documented By: MABLE Labs 10/14/23 13:09 10/16/23 05:55 Assessment and Plan (1) Cognitive decline: Status: Acute Plan 73F PMH Hypothyroid, anxiety who presented to ED 10/06/23 with AMS. found to be Covid19 positive at that point with increased weakness and confusion. was awaiting placement in ED and on 10/14/23 became more confused. Cognitive impairment Psych evaluation appreciated, patient does not have capacity to appoint hcp, will need guardian care team did not feel [facility]-psych admission at this point Psych input appreciated, restarted Clonazepam Metabolic encephalopathy 2/2 acute Hypernatremia on admission, resolved mental status back to baseline as Na level normalized Physical deconditioning PT eval recommending LTC Hx Covid 19 infx recent, repeat is negative Hypothyroidism Levothyroixne red eye artificial tears, eye drops DVT PPx Lovenox The patient will need hospital stay pending guardianship and safe discharge plan Quality Stroke Does the patient have a stroke diagnosis?: No VTE Prior VTE?: No VTE Risk Level:: Medical - moderate - high VTE Device Contraindication: Treatment Not Indicated VTE Drug Contraindication: N/A - Med Ordered
[2023-11-18] MEDS: Trihexyphenidyl HCL 2 MG TABLET 1 MG PO ×2 (09:04→21:06)
[2023-11-18] MEDS: Ketotifen Fumarate 0.025% Oph 5 ML DRPBTL 1 DROP EYE-RIGHT ×2 (09:06→21:06)
[2023-11-18] MEDS: Enoxaparin Sodium 40 MG/0.4 ML SYRINGE SUBCUT (13:33)
--- NOTE | 2023-11-18 15:19 | MHC.CM.PN ---
PTS [facility] NOW IN [facility] NOW AWAITING [facility] FOR LTC PLACEMENT
[2023-11-18 16:00] VITALS: BP 121/58; PULSE 84; RESP 16; TEMP 36.9; O2SAT 96
[2023-11-18 20:00] VITALS: BP 120/68; PULSE 84; RESP 18; TEMP 36.5; O2SAT 98
[2023-11-19 03:34] VITALS: BP 109/53; PULSE 79; RESP 16; TEMP 36; O2SAT 96
[2023-11-19] MEDS: Levothyroxine Sodium 75 MCG TABLET PO (05:39)
[2023-11-19 07:39] VITALS: BP 140/63; PULSE 82; RESP 16; TEMP 36.1; O2SAT 97
--- NOTE | 2023-11-19 08:27 | HO.PM.IMPN ---
Subjective Subjective Date of Service: 11/19/23 Interval History: no complaints Physical Exam Vital Signs: Vital Signs: Last Vital Signs Temp 97.0 F 11/19/23 07:39 Pulse 82 11/19/23 07:39 Resp 16 11/19/23 07:39 BP 140/63 H 11/19/23 07:39 Pulse Ox 97 11/19/23 07:39 O2 Del Method Room Air 11/19/23 07:39 BMI result Body Mass Index 20.5 Const: Other: Constitutional : Awake, interactive, not in distress Neck : Normal inspection, Supple Cardiovascular : RRR, no JVP Respiratory : good bilateral air entry, no wheezes or rhonchi Gastrointestinal: soft, lax, Non tender Skin : Warm, Dry Neurological : Alert & oriented to self only but otherwise confused and can get easily distracted, No focal deficit Objective Data Active Medications Acetaminophen (Acetaminophen 325 Mg Tablet) 650 mg PO Q6H PRN PRN Reason: Pain, Mild (Pain Scale 1-3) Last Admin: 11/17/23 20:51 Dose: 650 mg Documented By: MABLE Artificial Tears (Artificial Tears 15 Ml Drops) 2 drop EYE-BOTH Q4H PRN PRN Reason: Dry Eyes Last Admin: 11/17/23 08:46 Dose: 2 drop Documented By: IGNACIO Benzocaine (Throat Lozenge, Medicated Lozenge) 1 lozenge MUCOUS MEM Q2H PRN PRN Reason: Sore Throat Enoxaparin Sodium (Enoxaparin Sodium 40 Mg/0.4 Ml Syringe) 40 mg SUBCUT Q24H [facility] Last Admin: 11/18/23 13:33 Dose: 40 mg Documented By: IGNACIO Fluticasone Propionate (Fluticasone Propionate Nasal 16 Gm [place]) 2 spray NOSTRIL-B DAILY [facility] Last Admin: 11/18/23 09:07 Dose: Not Given Documented By: IGNACIO Non-Admin Reason: Med Not Available Ketotifen Fumarate (Ketotifen Fumarate 0.025% Oph 5 Ml Drpbtl) 1 drop EYE-RIGHT BID [facility] Last Admin: 11/18/23 21:06 Dose: 1 drop Documented By: MATT Levothyroxine Sodium (Levothyroxine Sodium 75 Mcg Tablet) 75 mcg PO DAILY@0630 [facility] Last Admin: 11/19/23 05:39 Dose: 75 mcg Documented By: ALVINO Ondansetron HCl (Ondansetron Hcl 4 Mg/2 Ml Vial) 4 mg IVPUSH Q8H PRN PRN Reason: Nausea and Vomiting Trihexyphenidyl HCl (Trihexyphenidyl Hcl 2 Mg Tablet) 1 mg PO BID [facility] Last Admin: 11/18/23 21:06 Dose: 1 mg Documented By: MATT Labs 10/14/23 13:09 10/16/23 05:55 Assessment and Plan (1) Cognitive decline: Status: Acute Plan 73F PMH Hypothyroid, anxiety who presented to ED 10/06/23 with AMS. found to be Covid19 positive at that point with increased weakness and confusion. was awaiting placement in ED and on 10/14/23 became more confused. Cognitive impairment Psych evaluation appreciated, patient does not have capacity to appoint hcp, will need guardian care team did not feel [facility]-psych admission at this point Psych input appreciated, restarted Clonazepam Metabolic encephalopathy 2/2 acute Hypernatremia on admission, resolved mental status back to baseline as Na level normalized Physical deconditioning PT eval recommending LTC Hx Covid 19 infx recent, repeat is negative Hypothyroidism Levothyroixne red eye artificial tears, eye drops DVT PPx Lovenox The patient will need hospital stay pending guardianship and safe discharge plan Quality Stroke Does the patient have a stroke diagnosis?: No VTE Prior VTE?: No VTE Risk Level:: Medical - moderate - high VTE Device Contraindication: Treatment Not Indicated VTE Drug Contraindication: N/A - Med Ordered
[2023-11-19] MEDS: Trihexyphenidyl HCL 2 MG TABLET 1 MG PO ×2 (09:22→20:47)
[2023-11-19] MEDS: Ketotifen Fumarate 0.025% Oph 5 ML DRPBTL 1 DROP EYE-RIGHT ×2 (09:25→20:49)
--- NOTE | 2023-11-19 10:19 | MHC.CM.PN ---
LM for guardian Farzana Robles [phone] to inform of plan for LTC and need for [facility]. Per medical records secretary, Farzana will not be available until 11/22/23. Faxed referral to financial services to reach out to guardian. CM will continue to follow.
[2023-11-19] MEDS: Fluticasone Propionate Nasal 16 GM SPRAY 2 SPRAY NOSTRIL-B (10:36)
[2023-11-19] MEDS: Sennosides 8.6 MG TABLET PO (11:19)
[2023-11-19] MEDS: Enoxaparin Sodium 40 MG/0.4 ML SYRINGE SUBCUT (12:14)
[2023-11-19 15:14] VITALS: BP 139/64; PULSE 80; RESP 18; TEMP 36.8; O2SAT 98
[2023-11-19 19:21] VITALS: BP 125/57; PULSE 76; RESP 18; TEMP 36.5; O2SAT 98
[2023-11-20 02:45] VITALS: BP 107/51; PULSE 78; RESP 18; TEMP 36.1; O2SAT 96
[2023-11-20] MEDS: Levothyroxine Sodium 75 MCG TABLET PO (06:15)
[2023-11-20 07:41] VITALS: BP 122/58; PULSE 76; RESP 18; TEMP 36; O2SAT 96
--- NOTE | 2023-11-20 08:25 | HO.PM.IMPN ---
Subjective Subjective Date of Service: 11/20/23 Interval History: no complaints Physical Exam Vital Signs: Vital Signs: Last Vital Signs Temp 96.8 F 11/20/23 07:41 Pulse 76 11/20/23 07:41 Resp 18 11/20/23 07:41 BP 122/58 L 11/20/23 07:41 Pulse Ox 96 11/20/23 07:41 O2 Del Method Room Air 11/20/23 07:41 BMI result Body Mass Index 20.5 Const: Other: Constitutional : Awake, interactive, not in distress Neck : Normal inspection, Supple Cardiovascular : RRR, no JVP Respiratory : good bilateral air entry, no wheezes or rhonchi Gastrointestinal: soft, lax, Non tender Skin : Warm, Dry Neurological : Alert & oriented to self only but otherwise confused and can get easily distracted, No focal deficit Objective Data Active Medications Acetaminophen (Acetaminophen 325 Mg Tablet) 650 mg PO Q6H PRN PRN Reason: Pain, Mild (Pain Scale 1-3) Last Admin: 11/17/23 20:51 Dose: 650 mg Documented By: MABLE Artificial Tears (Artificial Tears 15 Ml Drops) 2 drop EYE-BOTH Q4H PRN PRN Reason: Dry Eyes Last Admin: 11/17/23 08:46 Dose: 2 drop Documented By: IGNACIO Benzocaine (Throat Lozenge, Medicated Lozenge) 1 lozenge MUCOUS MEM Q2H PRN PRN Reason: Sore Throat Enoxaparin Sodium (Enoxaparin Sodium 40 Mg/0.4 Ml Syringe) 40 mg SUBCUT Q24H [facility] Last Admin: 11/19/23 12:14 Dose: 40 mg Documented By: EDI Fluticasone Propionate (Fluticasone Propionate Nasal 16 Gm [place]) 2 spray NOSTRIL-B DAILY [facility] Last Admin: 11/19/23 10:36 Dose: 2 spray Documented By: EDI Ketotifen Fumarate (Ketotifen Fumarate 0.025% Oph 5 Ml Drpbtl) 1 drop EYE-RIGHT BID [facility] Last Admin: 11/19/23 20:49 Dose: 1 drop Documented By: MATT Levothyroxine Sodium (Levothyroxine Sodium 75 Mcg Tablet) 75 mcg PO DAILY@0630 [facility] Last Admin: 11/20/23 06:15 Dose: 75 mcg Documented By: MATT Ondansetron HCl (Ondansetron Hcl 4 Mg/2 Ml Vial) 4 mg IVPUSH Q8H PRN PRN Reason: Nausea and Vomiting Trihexyphenidyl HCl (Trihexyphenidyl Hcl 2 Mg Tablet) 1 mg PO BID [facility] Last Admin: 11/19/23 20:47 Dose: 1 mg Documented By: MATT Labs 10/14/23 13:09 10/16/23 05:55 Assessment and Plan (1) Cognitive decline: Status: Acute Plan 73F PMH Hypothyroid, anxiety who presented to ED 10/06/23 with AMS. found to be Covid19 positive at that point with increased weakness and confusion. was awaiting placement in ED and on 10/14/23 became more confused. Cognitive impairment Psych evaluation appreciated, patient does not have capacity to appoint hcp, will need guardian care team did not feel [facility]-psych admission at this point Psych input appreciated, restarted Clonazepam Metabolic encephalopathy 2/2 acute Hypernatremia on admission, resolved mental status back to baseline as Na level normalized Physical deconditioning PT eval recommending LTC Hx Covid 19 infx recent, repeat is negative Hypothyroidism Levothyroixne red eye artificial tears, eye drops DVT PPx Lovenox The patient will need hospital stay pending guardianship and safe discharge plan Quality Stroke Does the patient have a stroke diagnosis?: No VTE Prior VTE?: No VTE Risk Level:: Medical - moderate - high VTE Device Contraindication: Treatment Not Indicated VTE Drug Contraindication: N/A - Med Ordered
[2023-11-20] MEDS: Trihexyphenidyl HCL 2 MG TABLET 1 MG PO ×2 (09:23→21:24)
[2023-11-20] MEDS: Ketotifen Fumarate 0.025% Oph 5 ML DRPBTL 1 DROP EYE-RIGHT ×2 (09:28→21:26)
[2023-11-20 15:29] VITALS: BP 123/60; PULSE 84; RESP 18; TEMP 36.6; O2SAT 96
[2023-11-20 19:09] VITALS: BP 118/56; PULSE 84; RESP 18; TEMP 36.6; O2SAT 99
[2023-11-21 03:15] VITALS: BP 109/52; PULSE 80; RESP 18; TEMP 36.2; O2SAT 97
[2023-11-21] MEDS: Levothyroxine Sodium 75 MCG TABLET PO (06:25)
[2023-11-21 07:49] VITALS: BP 114/56; PULSE 82; RESP 18; TEMP 36.7; O2SAT 94
[2023-11-21] MEDS: Ketotifen Fumarate 0.025% Oph 5 ML DRPBTL 1 DROP EYE-RIGHT ×2 (08:40→20:40)
[2023-11-21] MEDS: Trihexyphenidyl HCL 2 MG TABLET 1 MG PO ×2 (08:41→20:41)
[2023-11-21] MEDS: Fluticasone Propionate Nasal 16 GM SPRAY 2 SPRAY NOSTRIL-B (08:43)
--- NOTE | 2023-11-21 08:49 | HO.PM.IMPN ---
Subjective Subjective Date of Service: 11/21/23 Interval History: no complaints Physical Exam Vital Signs: Vital Signs: Last Vital Signs Temp 98.0 F 11/21/23 07:49 Pulse 82 11/21/23 07:49 Resp 18 11/21/23 07:49 BP 114/56 L 11/21/23 07:49 Pulse Ox 94 11/21/23 07:49 O2 Del Method Room Air 11/21/23 07:49 BMI result Body Mass Index 20.5 Const: Other: Constitutional : Awake, interactive, not in distress Neck : Normal inspection, Supple Cardiovascular : RRR, no JVP Respiratory : good bilateral air entry, no wheezes or rhonchi Gastrointestinal: soft, lax, Non tender Skin : Warm, Dry Neurological : Alert & oriented to self only but otherwise confused and can get easily distracted, No focal deficit Objective Data Active Medications Acetaminophen (Acetaminophen 325 Mg Tablet) 650 mg PO Q6H PRN PRN Reason: Pain, Mild (Pain Scale 1-3) Last Admin: 11/17/23 20:51 Dose: 650 mg Documented By: MABLE Artificial Tears (Artificial Tears 15 Ml Drops) 2 drop EYE-BOTH Q4H PRN PRN Reason: Dry Eyes Last Admin: 11/17/23 08:46 Dose: 2 drop Documented By: IGNACIO Benzocaine (Throat Lozenge, Medicated Lozenge) 1 lozenge MUCOUS MEM Q2H PRN PRN Reason: Sore Throat Clonazepam (Clonazepam 0.125 Mg Tab.Rapdis) 0.25 mg PO BID [facility] Last Admin: 11/21/23 08:41 Dose: 0.25 mg Documented By: ALEX Enoxaparin Sodium (Enoxaparin Sodium 40 Mg/0.4 Ml Syringe) 40 mg SUBCUT Q24H [facility] Last Admin: 11/20/23 15:01 Dose: Not Given Documented By: CHILO Non-Admin Reason: Patient Refused Fluticasone Propionate (Fluticasone Propionate Nasal 16 Gm [place]) 2 spray NOSTRIL-B DAILY [facility] Last Admin: 11/21/23 08:43 Dose: 2 spray Documented By: ALEX Ketotifen Fumarate (Ketotifen Fumarate 0.025% Oph 5 Ml Drpbtl) 1 drop EYE-RIGHT BID [facility] Last Admin: 11/21/23 08:40 Dose: 1 drop Documented By: ALEX Levothyroxine Sodium (Levothyroxine Sodium 75 Mcg Tablet) 75 mcg PO DAILY@0630 [facility] Last Admin: 11/21/23 06:25 Dose: 75 mcg Documented By: MATT Ondansetron HCl (Ondansetron Hcl 4 Mg/2 Ml Vial) 4 mg IVPUSH Q8H PRN PRN Reason: Nausea and Vomiting Trihexyphenidyl HCl (Trihexyphenidyl Hcl 2 Mg Tablet) 1 mg PO BID [facility] Last Admin: 11/21/23 08:41 Dose: 1 mg Documented By: ALEX Labs 10/14/23 13:09 10/16/23 05:55 Assessment and Plan (1) Cognitive decline: Status: Acute Plan 73F PMH Hypothyroid, anxiety who presented to ED 10/06/23 with AMS. found to be Covid19 positive at that point with increased weakness and confusion. was awaiting placement in ED and on 10/14/23 became more confused. Cognitive impairment Psych evaluation appreciated, patient does not have capacity to appoint hcp, will need guardian care team did not feel [facility]-psych admission at this point Psych input appreciated, restarted Clonazepam Metabolic encephalopathy 2/2 acute Hypernatremia on admission, resolved mental status back to baseline as Na level normalized Physical deconditioning PT eval recommending LTC Hx Covid 19 infx recent, repeat is negative Hypothyroidism Levothyroixne red eye artificial tears, eye drops DVT PPx Lovenox The patient will need hospital stay pending guardianship and safe discharge plan Quality Stroke Does the patient have a stroke diagnosis?: No VTE Prior VTE?: No VTE Risk Level:: Medical - moderate - high VTE Device Contraindication: Treatment Not Indicated VTE Drug Contraindication: N/A - Med Ordered
[2023-11-21] MEDS: Enoxaparin Sodium 40 MG/0.4 ML SYRINGE SUBCUT (13:38)
[2023-11-21 15:47] VITALS: BP 130/59; PULSE 89; RESP 16; TEMP 36.6; O2SAT 96
[2023-11-21 20:00] VITALS: BP 119/56; PULSE 85; RESP 18; TEMP 37.1; O2SAT 95
[2023-11-22 04:00] VITALS: BP 115/55; PULSE 82; RESP 16; TEMP 36.3; O2SAT 96
[2023-11-22] MEDS: Levothyroxine Sodium 75 MCG TABLET PO (05:35)
[2023-11-22 07:24] VITALS: BP 129/57; PULSE 76; RESP 18; TEMP 36.6; O2SAT 97
[2023-11-22] MEDS: Trihexyphenidyl HCL 2 MG TABLET 1 MG PO ×2 (08:28→20:06)
[2023-11-22] MEDS: Artificial Tears 15 ML DROPS 2 DROP EYE-BOTH (08:31)
[2023-11-22] MEDS: Fluticasone Propionate Nasal 16 GM SPRAY 2 SPRAY NOSTRIL-B (08:31)
[2023-11-22] MEDS: Ketotifen Fumarate 0.025% Oph 5 ML DRPBTL 1 DROP EYE-RIGHT ×2 (08:31→20:13)
--- NOTE | 2023-11-22 09:31 | P.PNIM_ITS ---
Subjective Subjective Date of Service: 11/22/23 Interval History: no complaints Physical Exam 2 Vital Signs: Vital Signs: Last Vital Signs Temp 97.9 F 11/22/23 07:24 Pulse 76 11/22/23 07:24 Resp 18 11/22/23 07:24 BP 129/57 L 11/22/23 07:24 Pulse Ox 97 11/22/23 07:24 O2 Del Method Room Air 11/22/23 07:24 BMI result Body Mass Index 20.5 Const: Other: Constitutional : Awake, interactive, not in distress Neck : Normal inspection, Supple Cardiovascular : RRR, no JVP Respiratory : good bilateral air entry, no wheezes or rhonchi Gastrointestinal: soft, lax, Non tender Skin : Warm, Dry Neurological : Alert & oriented to self only but otherwise confused and can get easily distracted, No focal deficit Objective Data Active Medications Acetaminophen (Acetaminophen 325 Mg Tablet) 650 mg PO Q6H PRN PRN Reason: Pain, Mild (Pain Scale 1-3) Last Admin: 11/17/23 20:51 Dose: 650 mg Documented By: MABLE Artificial Tears (Artificial Tears 15 Ml Drops) 2 drop EYE-BOTH Q4H PRN PRN Reason: Dry Eyes Last Admin: 11/22/23 08:31 Dose: 2 drop Documented By: LYNDA Benzocaine (Throat Lozenge, Medicated Lozenge) 1 lozenge MUCOUS MEM Q2H PRN PRN Reason: Sore Throat Clonazepam (Clonazepam 0.125 Mg Tab.Rapdis) 0.25 mg PO BID [facility] Last Admin: 11/22/23 08:28 Dose: 0.25 mg Documented By: LYNDA Enoxaparin Sodium (Enoxaparin Sodium 40 Mg/0.4 Ml Syringe) 40 mg SUBCUT Q24H [facility] Last Admin: 11/21/23 13:38 Dose: 40 mg Documented By: ALEX Fluticasone Propionate (Fluticasone Propionate Nasal 16 Gm [place]) 2 spray NOSTRIL-B DAILY [facility] Last Admin: 11/22/23 08:31 Dose: 2 spray Documented By: LYNDA Ketotifen Fumarate (Ketotifen Fumarate 0.025% Oph 5 Ml Drpbtl) 1 drop EYE-RIGHT BID [facility] Last Admin: 11/22/23 08:31 Dose: 1 drop Documented By: LYNDA Levothyroxine Sodium (Levothyroxine Sodium 75 Mcg Tablet) 75 mcg PO DAILY@0630 [facility] Last Admin: 11/22/23 05:35 Dose: 75 mcg Documented By: DALIA Ondansetron HCl (Ondansetron Hcl 4 Mg/2 Ml Vial) 4 mg IVPUSH Q8H PRN PRN Reason: Nausea and Vomiting Trihexyphenidyl HCl (Trihexyphenidyl Hcl 2 Mg Tablet) 1 mg PO BID [facility] Last Admin: 11/22/23 08:28 Dose: 1 mg Documented By: LYNDA Labs 10/14/23 13:09 10/16/23 05:55 Assessment and Plan (1) Cognitive decline: Status: Acute Plan 73F PMH Hypothyroid, anxiety who presented to ED 10/06/23 with AMS. found to be Covid19 positive at that point with increased weakness and confusion. was awaiting placement in ED and on 10/14/23 became more confused. Cognitive impairment Psych evaluation appreciated, patient does not have capacity to appoint hcp, will need guardian care team did not feel [facility]-psych admission at this point Psych input appreciated, restarted Clonazepam Metabolic encephalopathy 2/2 acute Hypernatremia on admission, resolved mental status back to baseline as Na level normalized Physical deconditioning PT eval recommending LTC Hx Covid 19 infx recent, repeat is negative Hypothyroidism Levothyroixne red eye artificial tears, eye drops DVT PPx Lovenox The patient will need hospital stay pending guardianship and safe discharge plan Quality Stroke Does the patient have a stroke diagnosis?: No VTE Prior VTE?: No VTE Risk Level:: Medical - moderate - high VTE Device Contraindication: Treatment Not Indicated VTE Drug Contraindication: N/A - Med Ordered
--- NOTE | 2023-11-22 10:27 | MHC.CM.PN ---
EMR reviewed. No change in dc plan. Awaiting [facility] & LTC placement. Will begin LTC search once [facility] application is in. Referral sent to financial services 11/19.
[2023-11-22] MEDS: Enoxaparin Sodium 40 MG/0.4 ML SYRINGE SUBCUT (12:51)
[2023-11-22 15:33] VITALS: BP 123/56; PULSE 84; RESP 18; TEMP 36.6; O2SAT 96
[2023-11-22 19:22] VITALS: BP 136/62; PULSE 81; RESP 14; TEMP 36.6; O2SAT 96
[2023-11-23 04:00] VITALS: BP 106/55; PULSE 77; RESP 16; TEMP 36.4; O2SAT 95
[2023-11-23] MEDS: Levothyroxine Sodium 75 MCG TABLET PO (05:52)
[2023-11-23 07:30] VITALS: BP 109/55; PULSE 77; RESP 16; TEMP 36.2; O2SAT 95
[2023-11-23] MEDS: Trihexyphenidyl HCL 2 MG TABLET 1 MG PO ×2 (08:28→21:58)
[2023-11-23] MEDS: Fluticasone Propionate Nasal 16 GM SPRAY 2 SPRAY NOSTRIL-B (08:30)
[2023-11-23] MEDS: Ketotifen Fumarate 0.025% Oph 5 ML DRPBTL 1 DROP EYE-RIGHT (08:30)
[2023-11-23] MEDS: Artificial Tears 15 ML DROPS 2 DROP EYE-BOTH (08:30)
--- NOTE | 2023-11-23 09:29 | P.PNIM_ITS ---
Subjective Subjective Date of Service: 11/23/23 Interval History: no complaints Physical Exam 2 Vital Signs: Vital Signs: Last Vital Signs Temp 97.1 F 11/23/23 07:30 Pulse 77 11/23/23 07:30 Resp 16 11/23/23 07:30 BP 109/55 L 11/23/23 07:30 Pulse Ox 95 11/23/23 07:30 O2 Del Method Room Air 11/23/23 07:30 BMI result Body Mass Index 20.5 Const: Other: Constitutional : Awake, interactive, not in distress Neck : Normal inspection, Supple Cardiovascular : RRR, no JVP Respiratory : good bilateral air entry, no wheezes or rhonchi Gastrointestinal: soft, lax, Non tender Skin : Warm, Dry Neurological : Alert & oriented to self only but otherwise confused and can get easily distracted, No focal deficit Objective Data Active Medications Acetaminophen (Acetaminophen 325 Mg Tablet) 650 mg PO Q6H PRN PRN Reason: Pain, Mild (Pain Scale 1-3) Last Admin: 11/17/23 20:51 Dose: 650 mg Documented By: MABLE Artificial Tears (Artificial Tears 15 Ml Drops) 2 drop EYE-BOTH Q4H PRN PRN Reason: Dry Eyes Last Admin: 11/23/23 08:30 Dose: 2 drop Documented By: LYNDA Benzocaine (Throat Lozenge, Medicated Lozenge) 1 lozenge MUCOUS MEM Q2H PRN PRN Reason: Sore Throat Clonazepam (Clonazepam 0.125 Mg Tab.Rapdis) 0.25 mg PO BID [facility] Last Admin: 11/23/23 08:28 Dose: 0.25 mg Documented By: LYNDA Enoxaparin Sodium (Enoxaparin Sodium 40 Mg/0.4 Ml Syringe) 40 mg SUBCUT Q24H [facility] Last Admin: 11/22/23 12:51 Dose: 40 mg Documented By: LYNDA Fluticasone Propionate (Fluticasone Propionate Nasal 16 Gm [place]) 2 spray NOSTRIL-B DAILY [facility] Last Admin: 11/23/23 08:30 Dose: 2 spray Documented By: LYNDA Ketotifen Fumarate (Ketotifen Fumarate 0.025% Oph 5 Ml Drpbtl) 1 drop EYE-RIGHT BID [facility] Last Admin: 11/23/23 08:30 Dose: 1 drop Documented By: LYNDA Levothyroxine Sodium (Levothyroxine Sodium 75 Mcg Tablet) 75 mcg PO DAILY@0630 [facility] Last Admin: 11/23/23 05:52 Dose: 75 mcg Documented By: CARMEN Ondansetron HCl (Ondansetron Hcl 4 Mg/2 Ml Vial) 4 mg IVPUSH Q8H PRN PRN Reason: Nausea and Vomiting Trihexyphenidyl HCl (Trihexyphenidyl Hcl 2 Mg Tablet) 1 mg PO BID [facility] Last Admin: 11/23/23 08:28 Dose: 1 mg Documented By: LYNDA Labs 10/14/23 13:09 10/16/23 05:55 Assessment and Plan (1) Cognitive decline: Status: Acute Plan 73F PMH Hypothyroid, anxiety who presented to ED 10/06/23 with AMS. found to be Covid19 positive at that point with increased weakness and confusion. was awaiting placement in ED and on 10/14/23 became more confused. Cognitive impairment Psych evaluation appreciated, patient does not have capacity to appoint hcp, will need guardian care team did not feel [facility]-psych admission at this point Psych input appreciated, restarted Clonazepam Metabolic encephalopathy 2/2 acute Hypernatremia on admission, resolved mental status back to baseline as Na level normalized Physical deconditioning PT eval recommending LTC Hx Covid 19 infx recent, repeat is negative Hypothyroidism Levothyroixne red eye artificial tears, eye drops DVT PPx Lovenox The patient will need hospital stay pending guardianship and safe discharge plan Quality Stroke Does the patient have a stroke diagnosis?: No VTE Prior VTE?: No VTE Risk Level:: Medical - moderate - high VTE Device Contraindication: Treatment Not Indicated VTE Drug Contraindication: N/A - Med Ordered
[2023-11-23] MEDS: Enoxaparin Sodium 40 MG/0.4 ML SYRINGE SUBCUT (12:35)
[2023-11-23 15:18] VITALS: BP 122/53; PULSE 89; RESP 18; TEMP 36.3; O2SAT 97
[2023-11-23 19:25] VITALS: BP 137/60; PULSE 83; RESP 18; TEMP 36.4; O2SAT 97
[2023-11-24 03:49] VITALS: BP 107/52; PULSE 75; RESP 16; TEMP 36.4; O2SAT 96
[2023-11-24] MEDS: Levothyroxine Sodium 75 MCG TABLET PO (06:35)
[2023-11-24 07:20] VITALS: BP 141/63; PULSE 86; RESP 16; TEMP 36.3
[2023-11-24] MEDS: Fluticasone Propionate Nasal 16 GM SPRAY 2 SPRAY NOSTRIL-B (08:40)
[2023-11-24] MEDS: Trihexyphenidyl HCL 2 MG TABLET 1 MG PO ×2 (08:41→21:16)
[2023-11-24] MEDS: Ketotifen Fumarate 0.025% Oph 5 ML DRPBTL 1 DROP EYE-RIGHT (08:42)
--- NOTE | 2023-11-24 11:05 | HO.PM.IMPN ---
Subjective Subjective Date of Service: 11/24/23 Interval History: Seen and evaluated Alert, pleasingly confused Denies complaints Physical Exam Vital Signs: Vital Signs: Last Vital Signs Temp 97.4 F 11/24/23 07:20 Pulse 86 11/24/23 07:20 Resp 16 11/24/23 07:20 BP 141/63 H 11/24/23 07:20 Pulse Ox 96 11/24/23 03:49 O2 Del Method Room Air 11/24/23 03:49 BMI result Body Mass Index 20.5 Const: Other: Constitutional : Awake, interactive, not in distress Neck : Normal inspection, Supple Cardiovascular : RRR, no JVP Respiratory : good bilateral air entry, no wheezes or rhonchi Gastrointestinal: soft, lax, Non tender Skin : Warm, Dry Neurological : Alert & oriented to self only but otherwise confused and can get easily distracted, No focal deficit Objective Data Active Medications Acetaminophen (Acetaminophen 325 Mg Tablet) 650 mg PO Q6H PRN PRN Reason: Pain, Mild (Pain Scale 1-3) Last Admin: 11/17/23 20:51 Dose: 650 mg Documented By: MABLE Artificial Tears (Artificial Tears 15 Ml Drops) 2 drop EYE-BOTH Q4H PRN PRN Reason: Dry Eyes Last Admin: 11/23/23 08:30 Dose: 2 drop Documented By: LYNDA Benzocaine (Throat Lozenge, Medicated Lozenge) 1 lozenge MUCOUS MEM Q2H PRN PRN Reason: Sore Throat Clonazepam (Clonazepam 0.125 Mg Tab.Rapdis) 0.25 mg PO BID [facility] Last Admin: 11/24/23 08:40 Dose: 0.25 mg Documented By: GREGORY Enoxaparin Sodium (Enoxaparin Sodium 40 Mg/0.4 Ml Syringe) 40 mg SUBCUT Q24H [facility] Last Admin: 11/23/23 12:35 Dose: 40 mg Documented By: LYNDA Fluticasone Propionate (Fluticasone Propionate Nasal 16 Gm [place]) 2 spray NOSTRIL-B DAILY [facility] Last Admin: 11/24/23 08:40 Dose: 2 spray Documented By: GREGORY Ketotifen Fumarate (Ketotifen Fumarate 0.025% Oph 5 Ml Drpbtl) 1 drop EYE-RIGHT BID [facility] Last Admin: 11/24/23 08:42 Dose: 1 drop Documented By: GREGORY Levothyroxine Sodium (Levothyroxine Sodium 75 Mcg Tablet) 75 mcg PO DAILY@0630 [facility] Last Admin: 11/24/23 06:35 Dose: 75 mcg Documented By: YASMINE Ondansetron HCl (Ondansetron Hcl 4 Mg/2 Ml Vial) 4 mg IVPUSH Q8H PRN PRN Reason: Nausea and Vomiting Trihexyphenidyl HCl (Trihexyphenidyl Hcl 2 Mg Tablet) 1 mg PO BID [facility] Last Admin: 11/24/23 08:41 Dose: 1 mg Documented By: GREGORY Labs 10/14/23 13:09 10/16/23 05:55 Assessment and Plan (1) Cognitive decline: Status: Acute Plan 73F PMH Hypothyroid, anxiety who presented to ED 10/06/23 with AMS. found to be Covid19 positive at that point with increased weakness and confusion. was awaiting placement in ED and on 10/14/23 became more confused. Cognitive impairment Psych evaluation appreciated, patient does not have capacity to appoint hcp, will need guardian care team did not feel [facility]-psych admission at this point Psych input appreciated, restart Clonazepam Metabolic encephalopathy 2/2 acute Hypernatremia on admission, resolved mental status back to baseline as Na level normalized Physical deconditioning PT eval recommending LTC Hx Covid 19 infx recent, repeat is negative Hypothyroidism Levothyroixne red eye artificial tears, eye drops DVT PPx Lovenox The patient will need hospital stay pending guardianship and safe discharge plan Quality Stroke Does the patient have a stroke diagnosis?: No VTE Prior VTE?: No VTE Risk Level:: Medical - moderate - high VTE Device Contraindication: Treatment Not Indicated VTE Drug Contraindication: N/A - Med Ordered
[2023-11-24] MEDS: Enoxaparin Sodium 40 MG/0.4 ML SYRINGE SUBCUT (13:20)
--- NOTE | 2023-11-24 14:05 | MHC.CM.PN ---
EMR reviewed. No change in dc plan. Awaiting [facility] & LTC placement. Will begin LTC search once [facility] application is in. FS will work with guardian on this. CM will continue to follow.
[2023-11-24 14:56] VITALS: BP 129/58; PULSE 80; RESP 17; TEMP 36.6; O2SAT 98
[2023-11-24 19:45] VITALS: BP 135/63; PULSE 82; RESP 17; TEMP 36.5; O2SAT 95
[2023-11-25 03:35] VITALS: BP 117/56; PULSE 70; RESP 16; TEMP 36.6; O2SAT 96
[2023-11-25] MEDS: Levothyroxine Sodium 75 MCG TABLET PO (06:23)
[2023-11-25] MEDS: Trihexyphenidyl HCL 2 MG TABLET 1 MG PO ×2 (09:37→19:51)
[2023-11-25] MEDS: Ketotifen Fumarate 0.025% Oph 5 ML DRPBTL 1 DROP EYE-RIGHT ×2 (09:37→19:52)
[2023-11-25] MEDS: Fluticasone Propionate Nasal 16 GM SPRAY 2 SPRAY NOSTRIL-B (09:37)
[2023-11-25 09:39] VITALS: BP 118/68; PULSE 74; RESP 18; TEMP 36.8; O2SAT 96
--- NOTE | 2023-11-25 10:29 | HO.PM.IMPN ---
Subjective Subjective Date of Service: 11/25/23 Interval History: Seen and evaluated Alert, confused Denies complaints Review of Systems Review of Systems: Yes all other systems are reviewed and are negative Physical Exam Vital Signs: Vital Signs: Last Vital Signs Temp 98.2 F 11/25/23 09:39 Pulse 74 11/25/23 09:39 Resp 18 11/25/23 09:39 BP 118/68 11/25/23 09:39 Pulse Ox 96 11/25/23 09:39 O2 Del Method Room Air 11/25/23 09:39 BMI result Body Mass Index 20.5 Const: Other: Constitutional : Awake, interactive, not in distress Neck : Normal inspection, Supple Cardiovascular : RRR, no JVP Respiratory : good bilateral air entry, no wheezes or rhonchi Gastrointestinal: soft, lax, Non tender Skin : Warm, Dry Neurological : Alert & oriented to self only but otherwise confused and can get easily distracted, No focal deficit Objective Data Active Medications Acetaminophen (Acetaminophen 325 Mg Tablet) 650 mg PO Q6H PRN PRN Reason: Pain, Mild (Pain Scale 1-3) Last Admin: 11/17/23 20:51 Dose: 650 mg Documented By: MABLE Artificial Tears (Artificial Tears 15 Ml Drops) 2 drop EYE-BOTH Q4H PRN PRN Reason: Dry Eyes Last Admin: 11/23/23 08:30 Dose: 2 drop Documented By: LYNDA Benzocaine (Throat Lozenge, Medicated Lozenge) 1 lozenge MUCOUS MEM Q2H PRN PRN Reason: Sore Throat Enoxaparin Sodium (Enoxaparin Sodium 40 Mg/0.4 Ml Syringe) 40 mg SUBCUT Q24H [facility] Last Admin: 11/24/23 13:20 Dose: 40 mg Documented By: GREGORY Fluticasone Propionate (Fluticasone Propionate Nasal 16 Gm [place]) 2 spray NOSTRIL-B DAILY [facility] Last Admin: 11/25/23 09:37 Dose: 2 spray Documented By: BERENICE Ketotifen Fumarate (Ketotifen Fumarate 0.025% Oph 5 Ml Drpbtl) 1 drop EYE-RIGHT BID [facility] Last Admin: 11/25/23 09:37 Dose: 1 drop Documented By: BERENICE Levothyroxine Sodium (Levothyroxine Sodium 75 Mcg Tablet) 75 mcg PO DAILY@0630 [facility] Last Admin: 11/25/23 06:23 Dose: 75 mcg Documented By: YASMINE Ondansetron HCl (Ondansetron Hcl 4 Mg/2 Ml Vial) 4 mg IVPUSH Q8H PRN PRN Reason: Nausea and Vomiting Trihexyphenidyl HCl (Trihexyphenidyl Hcl 2 Mg Tablet) 1 mg PO BID [facility] Last Admin: 11/25/23 09:37 Dose: 1 mg Documented By: BERENICE Labs 10/14/23 13:09 10/16/23 05:55 Assessment and Plan (1) Cognitive decline: Status: Acute Plan 73F PMH Hypothyroid, anxiety who presented to ED 10/06/23 with AMS. found to be Covid19 positive at that point with increased weakness and confusion. was awaiting placement in ED and on 10/14/23 became more confused. Cognitive impairment Psych evaluation appreciated, patient does not have capacity to appoint hcp, will need guardian care team did not feel [facility]-psych admission at this point Psych input appreciated, restart Clonazepam Metabolic encephalopathy 2/2 acute Hypernatremia on admission, resolved mental status back to baseline as Na level normalized Physical deconditioning PT eval recommending LTC Hx Covid 19 infx recent, repeat is negative Hypothyroidism Levothyroixne red eye artificial tears, eye drops DVT PPx Lovenox The patient will need hospital stay pending guardianship and safe discharge plan Quality Stroke Does the patient have a stroke diagnosis?: No VTE Prior VTE?: No VTE Risk Level:: Medical - moderate - high VTE Device Contraindication: Treatment Not Indicated VTE Drug Contraindication: N/A - Med Ordered
[2023-11-25] MEDS: Enoxaparin Sodium 40 MG/0.4 ML SYRINGE SUBCUT (11:54)
[2023-11-25 15:27] VITALS: BP 111/68; PULSE 86; RESP 18; TEMP 36.8; O2SAT 96
[2023-11-25 19:27] VITALS: BP 115/58; PULSE 85; RESP 18; TEMP 36.7; O2SAT 96
[2023-11-25 23:41] VITALS: BP 114/56; PULSE 86; RESP 18; TEMP 36.7; O2SAT 96
[2023-11-26] MEDS: Levothyroxine Sodium 75 MCG TABLET PO (05:35)
[2023-11-26 07:58] VITALS: BP 113/56; PULSE 83; RESP 16; TEMP 36.5; O2SAT 95
[2023-11-26] MEDS: Trihexyphenidyl HCL 2 MG TABLET 1 MG PO ×2 (08:43→19:50)
[2023-11-26] MEDS: Fluticasone Propionate Nasal 16 GM SPRAY 2 SPRAY NOSTRIL-B (08:50)
--- NOTE | 2023-11-26 10:36 | HO.PM.IMPN ---
Subjective Subjective Date of Service: 11/26/23 Interval History: Seen and evaluated Alert, confused sweetly Denies complaints Review of Systems Review of Systems: Yes all other systems are reviewed and are negative Physical Exam Vital Signs: Vital Signs: Last Vital Signs Temp 97.7 F 11/26/23 07:58 Pulse 83 11/26/23 07:58 Resp 16 11/26/23 07:58 BP 113/56 L 11/26/23 07:58 Pulse Ox 95 11/26/23 07:58 O2 Del Method Room Air 11/26/23 07:58 BMI result Body Mass Index 20.5 Const: Other: Constitutional : Awake, interactive, not in distress Neck : Normal inspection, Supple Cardiovascular : RRR, no JVP Respiratory : good bilateral air entry, no wheezes or rhonchi Gastrointestinal: soft, lax, Non tender Skin : Warm, Dry Neurological : Alert & oriented to self only but otherwise confused and can get easily distracted, No focal deficit Objective Data Active Medications Acetaminophen (Acetaminophen 325 Mg Tablet) 650 mg PO Q6H PRN PRN Reason: Pain, Mild (Pain Scale 1-3) Last Admin: 11/17/23 20:51 Dose: 650 mg Documented By: MABLE Artificial Tears (Artificial Tears 15 Ml Drops) 2 drop EYE-BOTH Q4H PRN PRN Reason: Dry Eyes Last Admin: 11/23/23 08:30 Dose: 2 drop Documented By: LYNDA Benzocaine (Throat Lozenge, Medicated Lozenge) 1 lozenge MUCOUS MEM Q2H PRN PRN Reason: Sore Throat Clonazepam (Clonazepam 0.125 Mg Tab.Rapdis) 0.25 mg PO TID PRN PRN Reason: Anxiety Last Admin: 11/26/23 08:43 Dose: 0.25 mg Documented By: CHILO Enoxaparin Sodium (Enoxaparin Sodium 40 Mg/0.4 Ml Syringe) 40 mg SUBCUT Q24H [facility] Last Admin: 11/25/23 11:54 Dose: 40 mg Documented By: BERENICE Fluticasone Propionate (Fluticasone Propionate Nasal 16 Gm [place]) 2 spray NOSTRIL-B DAILY [facility] Last Admin: 11/26/23 08:50 Dose: 2 spray Documented By: CHILO Ketotifen Fumarate (Ketotifen Fumarate 0.025% Oph 5 Ml Drpbtl) 1 drop EYE-RIGHT BID [facility] Last Admin: 11/26/23 08:51 Dose: Not Given Documented By: CHILO Non-Admin Reason: Patient Refused Levothyroxine Sodium (Levothyroxine Sodium 75 Mcg Tablet) 75 mcg PO DAILY@0630 [facility] Last Admin: 11/26/23 05:35 Dose: 75 mcg Documented By: DALIA Ondansetron HCl (Ondansetron Hcl 4 Mg/2 Ml Vial) 4 mg IVPUSH Q8H PRN PRN Reason: Nausea and Vomiting Trihexyphenidyl HCl (Trihexyphenidyl Hcl 2 Mg Tablet) 1 mg PO BID [facility] Last Admin: 11/26/23 08:43 Dose: 1 mg Documented By: CHILO Labs 10/14/23 13:09 10/16/23 05:55 Assessment and Plan (1) Cognitive decline: Status: Acute Plan 73F PMH Hypothyroid, anxiety who presented to ED 10/06/23 with AMS. found to be Covid19 positive at that point with increased weakness and confusion. was awaiting placement in ED and on 10/14/23 became more confused. Cognitive impairment Psych evaluation appreciated, patient does not have capacity to appoint hcp, will need guardian Psych input appreciated, on Clonazepam Metabolic encephalopathy 2/2 acute Hypernatremia on admission, resolved mental status back to baseline as Na level normalized Physical deconditioning PT eval recommending LTC Hx Covid 19 infx recent, repeat is negative Hypothyroidism Levothyroixne red eye artificial tears, eye drops DVT PPx Lovenox The patient will need hospital stay pending guardianship and safe discharge plan Quality Stroke Does the patient have a stroke diagnosis?: No VTE Prior VTE?: No VTE Risk Level:: Medical - moderate - high VTE Device Contraindication: Treatment Not Indicated VTE Drug Contraindication: N/A - Med Ordered
[2023-11-26] MEDS: Enoxaparin Sodium 40 MG/0.4 ML SYRINGE SUBCUT (12:35)
--- NOTE | 2023-11-26 13:24 | MHC.CM.PN ---
EMR reviewed. No updates or change to dc plan. CM will continue to follow.
[2023-11-26 15:17] VITALS: BP 130/60; PULSE 91; RESP 18; TEMP 36.6; O2SAT 93
[2023-11-26 19:38] VITALS: BP 123/59; PULSE 86; RESP 18; TEMP 36.7; O2SAT 96
[2023-11-27 03:45] VITALS: BP 112/78; PULSE 78; RESP 18; TEMP 37.1; O2SAT 97
[2023-11-27] MEDS: Levothyroxine Sodium 75 MCG TABLET PO (06:33)
[2023-11-27 07:06] VITALS: BP 110/58; PULSE 68; RESP 17; TEMP 36.6; O2SAT 98
[2023-11-27] MEDS: Trihexyphenidyl HCL 2 MG TABLET 1 MG PO ×2 (08:33→19:40)
[2023-11-27] MEDS: Fluticasone Propionate Nasal 16 GM SPRAY 2 SPRAY NOSTRIL-B (09:39)
[2023-11-27] MEDS: Ketotifen Fumarate 0.025% Oph 5 ML DRPBTL 1 DROP EYE-RIGHT (09:39)
--- NOTE | 2023-11-27 10:43 | HO.PM.IMPN ---
Subjective Subjective Date of Service: 11/27/23 Interval History: Seen and evaluated Alert, confused sweetly Denies complaints Physical Exam Vital Signs: Vital Signs: Last Vital Signs Temp 97.9 F 11/27/23 07:06 Pulse 68 11/27/23 07:06 Resp 17 11/27/23 07:06 BP 110/58 L 11/27/23 07:06 Pulse Ox 98 11/27/23 07:06 O2 Del Method Room Air 11/27/23 07:06 BMI result Body Mass Index 20.5 Const: Other: Constitutional : Awake, interactive, not in distress Neck : Normal inspection, Supple Cardiovascular : RRR, no JVP Respiratory : good bilateral air entry, no wheezes or rhonchi Gastrointestinal: soft, lax, Non tender Skin : Warm, Dry Neurological : Alert & oriented to self only but otherwise confused and can get easily distracted, No focal deficit Objective Data Active Medications Acetaminophen (Acetaminophen 325 Mg Tablet) 650 mg PO Q6H PRN PRN Reason: Pain, Mild (Pain Scale 1-3) Last Admin: 11/17/23 20:51 Dose: 650 mg Documented By: MABLE Artificial Tears (Artificial Tears 15 Ml Drops) 2 drop EYE-BOTH Q4H PRN PRN Reason: Dry Eyes Last Admin: 11/23/23 08:30 Dose: 2 drop Documented By: LYNDA Benzocaine (Throat Lozenge, Medicated Lozenge) 1 lozenge MUCOUS MEM Q2H PRN PRN Reason: Sore Throat Clonazepam (Clonazepam 0.125 Mg Tab.Rapdis) 0.25 mg PO TID PRN PRN Reason: Anxiety Stop: 01/15/24 23:59 Last Admin: 11/26/23 19:50 Dose: 0.25 mg Documented By: YASMINE Enoxaparin Sodium (Enoxaparin Sodium 40 Mg/0.4 Ml Syringe) 40 mg SUBCUT Q24H [facility] Last Admin: 11/26/23 12:35 Dose: 40 mg Documented By: FINESSE Fluticasone Propionate (Fluticasone Propionate Nasal 16 Gm [place]) 2 spray NOSTRIL-B DAILY [facility] Last Admin: 11/27/23 09:39 Dose: 2 spray Documented By: DIEGO Ketotifen Fumarate (Ketotifen Fumarate 0.025% Oph 5 Ml Drpbtl) 1 drop EYE-RIGHT BID [facility] Last Admin: 11/27/23 09:39 Dose: 1 drop Documented By: DIEGO Levothyroxine Sodium (Levothyroxine Sodium 75 Mcg Tablet) 75 mcg PO DAILY@0630 [facility] Last Admin: 11/27/23 06:33 Dose: 75 mcg Documented By: YASMINE Ondansetron HCl (Ondansetron Hcl 4 Mg/2 Ml Vial) 4 mg IVPUSH Q8H PRN PRN Reason: Nausea and Vomiting Trihexyphenidyl HCl (Trihexyphenidyl Hcl 2 Mg Tablet) 1 mg PO BID [facility] Last Admin: 11/27/23 08:33 Dose: 1 mg Documented By: DIEGO Labs 10/14/23 13:09 10/16/23 05:55 Assessment and Plan (1) Cognitive decline: Status: Acute Plan 73F PMH Hypothyroid, anxiety who presented to ED 10/06/23 with AMS. found to be Covid19 positive at that point with increased weakness and confusion. was awaiting placement in ED and on 10/14/23 became more confused. Cognitive impairment Psych evaluation appreciated, patient does not have capacity to appoint hcp, will need guardian Psych input appreciated, on Clonazepam Metabolic encephalopathy 2/2 acute Hypernatremia on admission, resolved mental status back to baseline as Na level normalized Physical deconditioning PT eval recommending LTC Hx Covid 19 infx recent, repeat is negative Hypothyroidism Levothyroixne red eye artificial tears, eye drops DVT PPx Lovenox The patient will need hospital stay pending guardianship and safe discharge plan Quality Stroke Does the patient have a stroke diagnosis?: No VTE Prior VTE?: No VTE Risk Level:: Medical - moderate - high VTE Device Contraindication: Treatment Not Indicated VTE Drug Contraindication: N/A - Med Ordered
[2023-11-27] MEDS: Enoxaparin Sodium 40 MG/0.4 ML SYRINGE SUBCUT (12:32)
[2023-11-27 16:00] VITALS: BP 127/61; PULSE 82; RESP 20; TEMP 36.3; O2SAT 98
[2023-11-27 19:05] VITALS: BP 120/61; PULSE 84; RESP 20; TEMP 36.3; O2SAT 98
[2023-11-28 03:38] VITALS: BP 132/64; PULSE 78; RESP 16; TEMP 36.8; O2SAT 97
[2023-11-28 06:52] VITALS: BP 142/70; PULSE 81; RESP 16; TEMP 36.6; O2SAT 98
[2023-11-28] MEDS: Levothyroxine Sodium 75 MCG TABLET PO (07:13)
[2023-11-28] MEDS: Fluticasone Propionate Nasal 16 GM SPRAY 2 SPRAY NOSTRIL-B (08:21)
[2023-11-28] MEDS: Ketotifen Fumarate 0.025% Oph 5 ML DRPBTL 1 DROP EYE-RIGHT ×2 (08:22→19:29)
[2023-11-28] MEDS: Trihexyphenidyl HCL 2 MG TABLET 1 MG PO ×2 (08:22→19:28)
--- NOTE | 2023-11-28 09:56 | P.PNIM_ITS ---
Subjective Subjective Date of Service: 11/28/23 Interval History: Seen and evaluated Alert, confused Denies complaints Review of Systems No fever, chills No chest pain, palpitation No shortness of breath or coughing No abdominal pain, nausea or vomiting No urinary symptoms Physical Exam 2 Vital Signs: Vital Signs: Last Vital Signs Temp 98 F 11/28/23 06:52 Pulse 81 11/28/23 06:52 Resp 16 11/28/23 06:52 BP 142/70 H 11/28/23 06:52 Pulse Ox 98 11/28/23 06:52 O2 Del Method Room Air 11/28/23 06:52 BMI result Body Mass Index 20.5 Const: Other: Constitutional : Awake, interactive, not in distress Neck : Normal inspection, Supple Cardiovascular : RRR, no JVP Respiratory : good bilateral air entry, no wheezes or rhonchi Gastrointestinal: soft, lax, Non tender Skin : Warm, Dry Neurological : Alert & oriented to self only but otherwise confused and can get easily distracted, No focal deficit Objective Data Active Medications Acetaminophen (Acetaminophen 325 Mg Tablet) 650 mg PO Q6H PRN PRN Reason: Pain, Mild (Pain Scale 1-3) Last Admin: 11/17/23 20:51 Dose: 650 mg Documented By: MABLE Artificial Tears (Artificial Tears 15 Ml Drops) 2 drop EYE-BOTH Q4H PRN PRN Reason: Dry Eyes Last Admin: 11/23/23 08:30 Dose: 2 drop Documented By: LYNDA Benzocaine (Throat Lozenge, Medicated Lozenge) 1 lozenge MUCOUS MEM Q2H PRN PRN Reason: Sore Throat Clonazepam (Clonazepam 0.125 Mg Tab.Rapdis) 0.25 mg PO TID PRN PRN Reason: Anxiety Stop: 01/15/24 23:59 Last Admin: 11/27/23 19:40 Dose: 0.25 mg Documented By: YASMINE Enoxaparin Sodium (Enoxaparin Sodium 40 Mg/0.4 Ml Syringe) 40 mg SUBCUT Q24H [facility] Last Admin: 11/27/23 12:32 Dose: 40 mg Documented By: DIEGO Fluticasone Propionate (Fluticasone Propionate Nasal 16 Gm [place]) 2 spray NOSTRIL-B DAILY [facility] Last Admin: 11/28/23 08:21 Dose: 2 spray Documented By: LEO Ketotifen Fumarate (Ketotifen Fumarate 0.025% Oph 5 Ml Drpbtl) 1 drop EYE-RIGHT BID [facility] Last Admin: 11/28/23 08:22 Dose: 1 drop Documented By: LEO Levothyroxine Sodium (Levothyroxine Sodium 75 Mcg Tablet) 75 mcg PO DAILY@0630 [facility] Last Admin: 11/28/23 07:13 Dose: 75 mcg Documented By: YASMINE Ondansetron HCl (Ondansetron Hcl 4 Mg/2 Ml Vial) 4 mg IVPUSH Q8H PRN PRN Reason: Nausea and Vomiting Trihexyphenidyl HCl (Trihexyphenidyl Hcl 2 Mg Tablet) 1 mg PO BID [facility] Last Admin: 11/28/23 08:22 Dose: 1 mg Documented By: LEO Labs 10/14/23 13:09 10/16/23 05:55 Assessment and Plan (1) Cognitive decline: Status: Acute Plan 73F PMH Hypothyroid, anxiety who presented to ED 10/06/23 with AMS. found to be Covid19 positive at that point with increased weakness and confusion. was awaiting placement in ED and on 10/14/23 became more confused. Cognitive impairment Psych evaluation appreciated, patient does not have capacity to appoint hcp, will need guardian Psych input appreciated, on Clonazepam Metabolic encephalopathy 2/2 acute Hypernatremia on admission, resolved mental status back to baseline as Na level normalized Physical deconditioning PT eval recommending LTC Hx Covid 19 infx recent, repeat is negative Hypothyroidism Levothyroixne red eye artificial tears, eye drops DVT PPx Lovenox The patient will need hospital stay pending guardianship and safe discharge plan Quality Stroke Does the patient have a stroke diagnosis?: No VTE Prior VTE?: No VTE Risk Level:: Medical - moderate - high VTE Device Contraindication: Treatment Not Indicated VTE Drug Contraindication: N/A - Med Ordered
[2023-11-28] MEDS: Enoxaparin Sodium 40 MG/0.4 ML SYRINGE SUBCUT (12:49)
[2023-11-28 16:00] VITALS: BP 144/66; PULSE 88; RESP 18; TEMP 36.3; O2SAT 96
[2023-11-28 20:00] VITALS: BP 134/62; PULSE 86; RESP 18; TEMP 36.8; O2SAT 97
[2023-11-29 03:54] VITALS: BP 146/61; PULSE 76; RESP 18; TEMP 36.8; O2SAT 96
[2023-11-29] MEDS: Levothyroxine Sodium 75 MCG TABLET PO (06:15)
[2023-11-29 07:48] VITALS: BP 125/54; PULSE 79; RESP 17; TEMP 36.5; O2SAT 97
[2023-11-29] MEDS: Trihexyphenidyl HCL 2 MG TABLET 1 MG PO ×2 (09:40→20:41)
[2023-11-29] MEDS: Ketotifen Fumarate 0.025% Oph 5 ML DRPBTL 1 DROP EYE-RIGHT ×2 (09:46→20:46)
[2023-11-29] MEDS: Fluticasone Propionate Nasal 16 GM SPRAY 2 SPRAY NOSTRIL-B (09:46)
--- NOTE | 2023-11-29 10:36 | MHC.CM.PN ---
EMR reviewed. No updates or change to dc plan. CM will continue to follow.
--- NOTE | 2023-11-29 11:59 | P.PNIM_ITS ---
Subjective Subjective Date of Service: 11/29/23 Interval History: Seen and evaluated Alert, confused Denies complaints Review of Systems Review of Systems: Yes all other systems are reviewed and are negative Physical Exam 2 Vital Signs: Vital Signs: Last Vital Signs Temp 97.7 F 11/29/23 07:48 Pulse 79 11/29/23 07:48 Resp 17 11/29/23 07:48 BP 125/54 L 11/29/23 07:48 Pulse Ox 97 11/29/23 07:48 O2 Del Method Room Air 11/29/23 07:48 BMI result Body Mass Index 20.5 Const: Other: Constitutional : Awake, interactive, not in distress Neck : Normal inspection, Supple Cardiovascular : RRR, no JVP Respiratory : good bilateral air entry, no wheezes or rhonchi Gastrointestinal: soft, lax, Non tender Skin : Warm, Dry Neurological : Alert & oriented to self only but otherwise confused and can get easily distracted, No focal deficit Objective Data Active Medications Acetaminophen (Acetaminophen 325 Mg Tablet) 650 mg PO Q6H PRN PRN Reason: Pain, Mild (Pain Scale 1-3) Last Admin: 11/17/23 20:51 Dose: 650 mg Documented By: MABLE Artificial Tears (Artificial Tears 15 Ml Drops) 2 drop EYE-BOTH Q4H PRN PRN Reason: Dry Eyes Last Admin: 11/23/23 08:30 Dose: 2 drop Documented By: LYNDA Benzocaine (Throat Lozenge, Medicated Lozenge) 1 lozenge MUCOUS MEM Q2H PRN PRN Reason: Sore Throat Clonazepam (Clonazepam 0.125 Mg Tab.Rapdis) 0.25 mg PO TID PRN PRN Reason: Anxiety Stop: 01/15/24 23:59 Last Admin: 11/29/23 09:40 Dose: 0.25 mg Documented By: CHILO Enoxaparin Sodium (Enoxaparin Sodium 40 Mg/0.4 Ml Syringe) 40 mg SUBCUT Q24H [facility] Last Admin: 11/28/23 12:49 Dose: 40 mg Documented By: LEO Fluticasone Propionate (Fluticasone Propionate Nasal 16 Gm [place]) 2 spray NOSTRIL-B DAILY [facility] Last Admin: 11/29/23 09:46 Dose: 2 spray Documented By: CHILO Ketotifen Fumarate (Ketotifen Fumarate 0.025% Oph 5 Ml Drpbtl) 1 drop EYE-RIGHT BID [facility] Last Admin: 11/29/23 09:46 Dose: 1 drop Documented By: CHILO Levothyroxine Sodium (Levothyroxine Sodium 75 Mcg Tablet) 75 mcg PO DAILY@0630 [facility] Last Admin: 11/29/23 06:15 Dose: 75 mcg Documented By: SKY Ondansetron HCl (Ondansetron Hcl 4 Mg/2 Ml Vial) 4 mg IVPUSH Q8H PRN PRN Reason: Nausea and Vomiting Trihexyphenidyl HCl (Trihexyphenidyl Hcl 2 Mg Tablet) 1 mg PO BID [facility] Last Admin: 11/29/23 09:40 Dose: 1 mg Documented By: CHILO Labs 10/14/23 13:09 10/16/23 05:55 Assessment and Plan (1) Cognitive decline: Status: Acute Plan 73F PMH Hypothyroid, anxiety who presented to ED 10/06/23 with AMS. found to be Covid19 positive at that point with increased weakness and confusion. was awaiting placement in ED and on 10/14/23 became more confused. Cognitive impairment Psych evaluation appreciated, patient does not have capacity to appoint hcp, will need guardian Psych input appreciated, on Clonazepam Metabolic encephalopathy 2/2 acute Hypernatremia on admission, resolved mental status back to baseline as Na level normalized Physical deconditioning PT eval recommending LTC Hx Covid 19 infx recent, repeat is negative Hypothyroidism Levothyroixne red eye artificial tears, eye drops DVT PPx Lovenox The patient will need hospital stay pending guardianship and safe discharge plan Quality Stroke Does the patient have a stroke diagnosis?: No VTE Prior VTE?: No VTE Risk Level:: Medical - moderate - high VTE Device Contraindication: Treatment Not Indicated VTE Drug Contraindication: N/A - Med Ordered
[2023-11-29] MEDS: Enoxaparin Sodium 40 MG/0.4 ML SYRINGE SUBCUT (14:08)
[2023-11-29 15:21] VITALS: BP 138/87; PULSE 84; RESP 18; TEMP 36.2; O2SAT 99
[2023-11-29 19:06] VITALS: BP 118/72; PULSE 74; RESP 18; TEMP 36.3; O2SAT 96
[2023-11-30 04:00] VITALS: BP 116/56; PULSE 66; RESP 16; TEMP 36.8; O2SAT 96
[2023-11-30] MEDS: Levothyroxine Sodium 75 MCG TABLET PO (06:05)
[2023-11-30 07:40] VITALS: BP 128/63; PULSE 78; RESP 18; TEMP 36.3; O2SAT 97
[2023-11-30] MEDS: Trihexyphenidyl HCL 2 MG TABLET 1 MG PO ×2 (08:46→20:43)
[2023-11-30] MEDS: Fluticasone Propionate Nasal 16 GM SPRAY 2 SPRAY NOSTRIL-B (08:46)
[2023-11-30] MEDS: Ketotifen Fumarate 0.025% Oph 5 ML DRPBTL 1 DROP EYE-RIGHT ×2 (08:46→20:46)
--- NOTE | 2023-11-30 09:46 | HO.PM.IMPN ---
Subjective Subjective Date of Service: 11/30/23 Interval History: Seen and evaluated Alert, sweetly confused Denies complaints Review of Systems Review of Systems: Yes all other systems are reviewed and are negative Physical Exam Vital Signs: Vital Signs: Last Vital Signs Temp 97.4 F 11/30/23 07:40 Pulse 78 11/30/23 07:40 Resp 18 11/30/23 07:40 BP 128/63 11/30/23 07:40 Pulse Ox 97 11/30/23 07:40 O2 Del Method Room Air 11/30/23 07:40 BMI result Body Mass Index 20.5 Const: Other: Constitutional : Awake, interactive, not in distress Neck : Normal inspection, Supple Cardiovascular : RRR, no JVP Respiratory : good bilateral air entry, no wheezes or rhonchi Gastrointestinal: soft, lax, Non tender Skin : Warm, Dry Neurological : Alert & oriented to self only but otherwise confused and can get easily distracted, No focal deficit Objective Data Active Medications Acetaminophen (Acetaminophen 325 Mg Tablet) 650 mg PO Q6H PRN PRN Reason: Pain, Mild (Pain Scale 1-3) Last Admin: 11/17/23 20:51 Dose: 650 mg Documented By: MABLE Artificial Tears (Artificial Tears 15 Ml Drops) 2 drop EYE-BOTH Q4H PRN PRN Reason: Dry Eyes Last Admin: 11/23/23 08:30 Dose: 2 drop Documented By: LYNDA Benzocaine (Throat Lozenge, Medicated Lozenge) 1 lozenge MUCOUS MEM Q2H PRN PRN Reason: Sore Throat Clonazepam (Clonazepam 0.125 Mg Tab.Rapdis) 0.25 mg PO TID PRN PRN Reason: Anxiety Stop: 01/15/24 23:59 Last Admin: 11/30/23 08:46 Dose: 0.25 mg Documented By: CHILO Enoxaparin Sodium (Enoxaparin Sodium 40 Mg/0.4 Ml Syringe) 40 mg SUBCUT Q24H [facility] Last Admin: 11/29/23 14:08 Dose: 40 mg Documented By: CHILO Fluticasone Propionate (Fluticasone Propionate Nasal 16 Gm [place]) 2 spray NOSTRIL-B DAILY [facility] Last Admin: 11/30/23 08:46 Dose: 2 spray Documented By: CHILO Ketotifen Fumarate (Ketotifen Fumarate 0.025% Oph 5 Ml Drpbtl) 1 drop EYE-RIGHT BID [facility] Last Admin: 11/30/23 08:46 Dose: 1 drop Documented By: CHILO Levothyroxine Sodium (Levothyroxine Sodium 75 Mcg Tablet) 75 mcg PO DAILY@0630 [facility] Last Admin: 11/30/23 06:05 Dose: 75 mcg Documented By: MATT Ondansetron HCl (Ondansetron Hcl 4 Mg/2 Ml Vial) 4 mg IVPUSH Q8H PRN PRN Reason: Nausea and Vomiting Trihexyphenidyl HCl (Trihexyphenidyl Hcl 2 Mg Tablet) 1 mg PO BID [facility] Last Admin: 11/30/23 08:46 Dose: 1 mg Documented By: CHILO Labs 10/14/23 13:09 10/16/23 05:55 Assessment and Plan (1) Cognitive decline: Status: Acute Plan 73F PMH Hypothyroid, anxiety who presented to ED 10/06/23 with AMS. found to be Covid19 positive at that point with increased weakness and confusion. was awaiting placement in ED and on 10/14/23 became more confused. Cognitive impairment Psych evaluation appreciated, patient does not have capacity to appoint hcp, will need guardian Psych input appreciated, on Clonazepam Metabolic encephalopathy 2/2 acute Hypernatremia on admission, resolved mental status back to baseline as Na level normalized Physical deconditioning PT eval recommending LTC Hx Covid 19 infx recent, repeat is negative Hypothyroidism Levothyroixne red eye artificial tears, eye drops DVT PPx Lovenox The patient will need hospital stay pending guardianship and safe discharge plan Quality Stroke Does the patient have a stroke diagnosis?: No VTE Prior VTE?: No VTE Risk Level:: Medical - moderate - high VTE Device Contraindication: Treatment Not Indicated VTE Drug Contraindication: N/A - Med Ordered
[2023-11-30] MEDS: Enoxaparin Sodium 40 MG/0.4 ML SYRINGE SUBCUT (12:50)
[2023-11-30 15:21] VITALS: BP 111/53; PULSE 87; RESP 20; TEMP 36.2; O2SAT 98
[2023-11-30 20:00] VITALS: BP 146/68; PULSE 82; RESP 18; TEMP 36.2; O2SAT 96
[2023-12-01 04:00] VITALS: BP 124/58; PULSE 73; RESP 16; TEMP 36.1; O2SAT 96
[2023-12-01] MEDS: Levothyroxine Sodium 75 MCG TABLET PO (06:19)
[2023-12-01 07:21] VITALS: BP 125/58; PULSE 78; RESP 16; TEMP 36.3; O2SAT 98
[2023-12-01] MEDS: Fluticasone Propionate Nasal 16 GM SPRAY 2 SPRAY NOSTRIL-B (08:36)
[2023-12-01] MEDS: Trihexyphenidyl HCL 2 MG TABLET 1 MG PO ×2 (08:36→18:58)
[2023-12-01] MEDS: Ketotifen Fumarate 0.025% Oph 5 ML DRPBTL 1 DROP EYE-RIGHT ×2 (08:37→19:03)
--- NOTE | 2023-12-01 09:03 | P.PNIM_ITS ---
Subjective Subjective Date of Service: 12/01/23 Interval History: no complaints Physical Exam 2 Vital Signs: Vital Signs: Last Vital Signs Temp 97.4 F 12/01/23 07:21 Pulse 78 12/01/23 07:21 Resp 16 12/01/23 07:21 BP 125/58 L 12/01/23 07:21 Pulse Ox 98 12/01/23 07:21 O2 Del Method Room Air 12/01/23 07:21 BMI result Body Mass Index 20.5 Const: Other: Constitutional : Awake, interactive, not in distress Neck : Normal inspection, Supple Cardiovascular : RRR, no JVP Respiratory : good bilateral air entry, no wheezes or rhonchi Gastrointestinal: soft, lax, Non tender Skin : Warm, Dry Neurological : Alert & oriented to self only but otherwise confused and can get easily distracted, No focal deficit Objective Data Active Medications Acetaminophen (Acetaminophen 325 Mg Tablet) 650 mg PO Q6H PRN PRN Reason: Pain, Mild (Pain Scale 1-3) Last Admin: 11/17/23 20:51 Dose: 650 mg Documented By: MABLE Artificial Tears (Artificial Tears 15 Ml Drops) 2 drop EYE-BOTH Q4H PRN PRN Reason: Dry Eyes Last Admin: 11/23/23 08:30 Dose: 2 drop Documented By: JERUSIUriah Benzocaine (Throat Lozenge, Medicated Lozenge) 1 lozenge MUCOUS MEM Q2H PRN PRN Reason: Sore Throat Clonazepam (Clonazepam 0.125 Mg Tab.Rapdis) 0.25 mg PO TID PRN PRN Reason: Anxiety Stop: 01/15/24 23:59 Last Admin: 12/01/23 08:36 Dose: 0.25 mg Documented By: ABHINAV Enoxaparin Sodium (Enoxaparin Sodium 40 Mg/0.4 Ml Syringe) 40 mg SUBCUT Q24H [facility] Last Admin: 11/30/23 12:50 Dose: 40 mg Documented By: CHILO Fluticasone Propionate (Fluticasone Propionate Nasal 16 Gm [place]) 2 spray NOSTRIL-B DAILY [facility] Last Admin: 12/01/23 08:36 Dose: 2 spray Documented By: ABHINAV Ketotifen Fumarate (Ketotifen Fumarate 0.025% Oph 5 Ml Drpbtl) 1 drop EYE-RIGHT BID [facility] Last Admin: 12/01/23 08:37 Dose: 1 drop Documented By: COTEMA Levothyroxine Sodium (Levothyroxine Sodium 75 Mcg Tablet) 75 mcg PO DAILY@0630 [facility] Last Admin: 12/01/23 06:19 Dose: 75 mcg Documented By: NATAL Ondansetron HCl (Ondansetron Hcl 4 Mg/2 Ml Vial) 4 mg IVPUSH Q8H PRN PRN Reason: Nausea and Vomiting Trihexyphenidyl HCl (Trihexyphenidyl Hcl 2 Mg Tablet) 1 mg PO BID [facility] Last Admin: 12/01/23 08:36 Dose: 1 mg Documented By: COTEMA Labs 10/14/23 13:09 10/16/23 05:55 Assessment and Plan (1) Cognitive decline: Status: Acute Plan 73F PMH Hypothyroid, anxiety who presented to ED 10/06/23 with AMS. found to be Covid19 positive at that point with increased weakness and confusion. was awaiting placement in ED and on 10/14/23 became more confused. Cognitive impairment Psych evaluation appreciated, patient does not have capacity to appoint hcp, will need guardian Psych input appreciated, on Clonazepam Metabolic encephalopathy 2/2 acute Hypernatremia on admission, resolved mental status back to baseline as Na level normalized Physical deconditioning PT eval recommending LTC Hx Covid 19 infx recent, repeat is negative Hypothyroidism Levothyroixne red eye artificial tears, eye drops DVT PPx Lovenox The patient will need hospital stay pending guardianship and safe discharge plan Quality Stroke Does the patient have a stroke diagnosis?: No VTE Prior VTE?: No VTE Risk Level:: Medical - moderate - high VTE Device Contraindication: Treatment Not Indicated VTE Drug Contraindication: N/A - Med Ordered
--- NOTE | 2023-12-01 09:43 | MHC.CM.PN ---
EMR reviewed. Per Financial Services, still awaiting documentation from guardian for [employer] reginaldo. CM will continue to follow.
[2023-12-01] MEDS: Enoxaparin Sodium 40 MG/0.4 ML SYRINGE SUBCUT (11:57)
[2023-12-01 15:05] VITALS: BP 116/69; PULSE 93; RESP 18; TEMP 36.3; O2SAT 99
[2023-12-01 19:04] VITALS: BP 135/62; PULSE 98; RESP 18; TEMP 36.3; O2SAT 97
[2023-12-02 03:39] VITALS: BP 123/58; PULSE 82; RESP 16; TEMP 36; O2SAT 97
[2023-12-02] MEDS: Levothyroxine Sodium 75 MCG TABLET PO (06:26)
[2023-12-02 07:18] VITALS: BP 132/61; PULSE 83; RESP 14; TEMP 36.3; O2SAT 97
--- NOTE | 2023-12-02 08:45 | P.PNIM_ITS ---
Subjective Subjective Date of Service: 12/02/23 Interval History: no complaints Physical Exam 2 Vital Signs: Vital Signs: Last Vital Signs Temp 97.3 F 12/02/23 07:18 Pulse 83 12/02/23 07:18 Resp 14 12/02/23 07:18 BP 132/61 12/02/23 07:18 Pulse Ox 97 12/02/23 07:18 O2 Del Method Room Air 12/02/23 07:18 BMI result Body Mass Index 20.5 Const: Other: Constitutional : Awake, interactive, not in distress Neck : Normal inspection, Supple Cardiovascular : RRR, no JVP Respiratory : good bilateral air entry, no wheezes or rhonchi Gastrointestinal: soft, lax, Non tender Skin : Warm, Dry Neurological : Alert & oriented to self only but otherwise confused and can get easily distracted, No focal deficit Objective Data Active Medications Acetaminophen (Acetaminophen 325 Mg Tablet) 650 mg PO Q6H PRN PRN Reason: Pain, Mild (Pain Scale 1-3) Last Admin: 11/17/23 20:51 Dose: 650 mg Documented By: [place] Artificial Tears (Artificial Tears 15 Ml Drops) 2 drop EYE-BOTH Q4H PRN PRN Reason: Dry Eyes Last Admin: 11/23/23 08:30 Dose: 2 drop Documented By: JERUSIA Benzocaine (Throat Lozenge, Medicated Lozenge) 1 lozenge MUCOUS MEM Q2H PRN PRN Reason: Sore Throat Clonazepam (Clonazepam 0.125 Mg Tab.Rapdis) 0.25 mg PO TID PRN PRN Reason: Anxiety Stop: 01/15/24 23:59 Last Admin: 12/01/23 18:58 Dose: 0.25 mg Documented By: ALVINO Enoxaparin Sodium (Enoxaparin Sodium 40 Mg/0.4 Ml Syringe) 40 mg SUBCUT Q24H [facility] Last Admin: 12/01/23 11:57 Dose: 40 mg Documented By: ALVINO Fluticasone Propionate (Fluticasone Propionate Nasal 16 Gm [place]) 2 spray NOSTRIL-B DAILY [facility] Last Admin: 12/01/23 08:36 Dose: 2 spray Documented By: COTEMA Ketotifen Fumarate (Ketotifen Fumarate 0.025% Oph 5 Ml Drpbtl) 1 drop EYE-RIGHT BID [facility] Last Admin: 12/01/23 19:03 Dose: 1 drop Documented By: ALVINO Levothyroxine Sodium (Levothyroxine Sodium 75 Mcg Tablet) 75 mcg PO DAILY@0630 [facility] Last Admin: 12/02/23 06:26 Dose: 75 mcg Documented By: YASMINE Ondansetron HCl (Ondansetron Hcl 4 Mg/2 Ml Vial) 4 mg IVPUSH Q8H PRN PRN Reason: Nausea and Vomiting Trihexyphenidyl HCl (Trihexyphenidyl Hcl 2 Mg Tablet) 1 mg PO BID [facility] Last Admin: 12/01/23 18:58 Dose: 1 mg Documented By: ALVINO Labs 10/14/23 13:09 10/16/23 05:55 Assessment and Plan (1) Cognitive decline: Status: Acute Plan 73F PMH Hypothyroid, anxiety who presented to ED 10/06/23 with AMS. found to be Covid19 positive at that point with increased weakness and confusion. was awaiting placement in ED and on 10/14/23 became more confused. Cognitive impairment Psych evaluation appreciated, patient does not have capacity to appoint hcp, will need guardian Psych input appreciated, on Clonazepam Metabolic encephalopathy 2/2 acute Hypernatremia on admission, resolved mental status back to baseline as Na level normalized Physical deconditioning PT eval recommending LTC Hx Covid 19 infx recent, repeat is negative Hypothyroidism Levothyroixne red eye artificial tears, eye drops DVT PPx Lovenox The patient will need hospital stay pending guardianship and safe discharge plan Quality Stroke Does the patient have a stroke diagnosis?: No VTE Prior VTE?: No VTE Risk Level:: Medical - moderate - high VTE Device Contraindication: Treatment Not Indicated VTE Drug Contraindication: N/A - Med Ordered
[2023-12-02] MEDS: Trihexyphenidyl HCL 2 MG TABLET 1 MG PO ×2 (08:46→19:38)
[2023-12-02] MEDS: Ketotifen Fumarate 0.025% Oph 5 ML DRPBTL 1 DROP EYE-RIGHT ×2 (08:46→19:38)
[2023-12-02] MEDS: Enoxaparin Sodium 40 MG/0.4 ML SYRINGE SUBCUT (12:43)
[2023-12-02 15:15] VITALS: BP 115/56; PULSE 84; RESP 16; TEMP 36.6; O2SAT 99
[2023-12-02 19:26] VITALS: BP 140/63; PULSE 92; RESP 18; TEMP 36.5; O2SAT 95
[2023-12-03 03:27] VITALS: BP 125/59; PULSE 80; RESP 16; TEMP 36.4; O2SAT 98
[2023-12-03] MEDS: Levothyroxine Sodium 75 MCG TABLET PO (06:26)
[2023-12-03] MEDS: Trihexyphenidyl HCL 2 MG TABLET 1 MG PO ×2 (07:29→20:13)
[2023-12-03] MEDS: Ketotifen Fumarate 0.025% Oph 5 ML DRPBTL 1 DROP EYE-RIGHT ×2 (07:29→20:14)
[2023-12-03 07:53] VITALS: BP 121/58; PULSE 73; RESP 16; TEMP 36.4; O2SAT 98
--- NOTE | 2023-12-03 09:51 | P.PNIM_ITS ---
Subjective Subjective Date of Service: 12/03/23 Interval History: no complaints Physical Exam 2 Vital Signs: Vital Signs: Last Vital Signs Temp 97.5 F 12/03/23 07:53 Pulse 73 12/03/23 07:53 Resp 16 12/03/23 07:53 BP 121/58 L 12/03/23 07:53 Pulse Ox 98 12/03/23 07:53 O2 Del Method Room Air 12/03/23 07:53 BMI result Body Mass Index 20.5 Const: Other: Constitutional : Awake, interactive, not in distress Neck : Normal inspection, Supple Cardiovascular : RRR, no JVP Respiratory : good bilateral air entry, no wheezes or rhonchi Gastrointestinal: soft, lax, Non tender Skin : Warm, Dry Neurological : Alert & oriented to self only but otherwise confused and can get easily distracted, No focal deficit Objective Data Active Medications Acetaminophen (Acetaminophen 325 Mg Tablet) 650 mg PO Q6H PRN PRN Reason: Pain, Mild (Pain Scale 1-3) Last Admin: 11/17/23 20:51 Dose: 650 mg Documented By: MABLE Artificial Tears (Artificial Tears 15 Ml Drops) 2 drop EYE-BOTH Q4H PRN PRN Reason: Dry Eyes Last Admin: 11/23/23 08:30 Dose: 2 drop Documented By: LEILAUSIUriah Benzocaine (Throat Lozenge, Medicated Lozenge) 1 lozenge MUCOUS MEM Q2H PRN PRN Reason: Sore Throat Clonazepam (Clonazepam 0.125 Mg Tab.Rapdis) 0.25 mg PO TID PRN PRN Reason: Anxiety Stop: 01/15/24 23:59 Last Admin: 12/01/23 18:58 Dose: 0.25 mg Documented By: ALVINO Enoxaparin Sodium (Enoxaparin Sodium 40 Mg/0.4 Ml Syringe) 40 mg SUBCUT Q24H [facility] Last Admin: 12/02/23 12:43 Dose: 40 mg Documented By: LEO Fluticasone Propionate (Fluticasone Propionate Nasal 16 Gm [place]) 2 spray NOSTRIL-B DAILY [facility] Last Admin: 12/03/23 07:28 Dose: Not Given Documented By: ALVINO Non-Admin Reason: Patient Refused Ketotifen Fumarate (Ketotifen Fumarate 0.025% Oph 5 Ml Drpbtl) 1 drop EYE-RIGHT BID [facility] Last Admin: 12/03/23 07:29 Dose: 1 drop Documented By: ALVINO Levothyroxine Sodium (Levothyroxine Sodium 75 Mcg Tablet) 75 mcg PO DAILY@0630 [facility] Last Admin: 12/03/23 06:26 Dose: 75 mcg Documented By: SKY Ondansetron HCl (Ondansetron Hcl 4 Mg/2 Ml Vial) 4 mg IVPUSH Q8H PRN PRN Reason: Nausea and Vomiting Trihexyphenidyl HCl (Trihexyphenidyl Hcl 2 Mg Tablet) 1 mg PO BID [facility] Last Admin: 12/03/23 07:29 Dose: 1 mg Documented By: ALVINO Labs 10/14/23 13:09 10/16/23 05:55 Assessment and Plan (1) Cognitive decline: Status: Acute Plan 73F PMH Hypothyroid, anxiety who presented to ED 10/06/23 with AMS. found to be Covid19 positive at that point with increased weakness and confusion. was awaiting placement in ED and on 10/14/23 became more confused. Cognitive impairment Psych evaluation appreciated, patient does not have capacity to appoint hcp, will need guardian Psych input appreciated, on Clonazepam Metabolic encephalopathy 2/2 acute Hypernatremia on admission, resolved mental status back to baseline as Na level normalized Physical deconditioning PT eval recommending LTC Hx Covid 19 infx recent, repeat is negative Hypothyroidism Levothyroixne red eye artificial tears, eye drops DVT PPx Lovenox The patient will need hospital stay pending guardianship and safe discharge plan Quality Stroke Does the patient have a stroke diagnosis?: No VTE Prior VTE?: No VTE Risk Level:: Medical - moderate - high VTE Device Contraindication: Treatment Not Indicated VTE Drug Contraindication: N/A - Med Ordered
--- NOTE | 2023-12-03 10:40 | MHC.CM.PN ---
EMR reviewed. No change to dc plan. Johanny is working on access to financials for [employer] reginaldo, FS working with [employer]. CM will continue to follow.
[2023-12-03] MEDS: Enoxaparin Sodium 40 MG/0.4 ML SYRINGE SUBCUT (12:32)
[2023-12-03 15:15] VITALS: BP 114/59; PULSE 88; RESP 18; TEMP 36.6; O2SAT 98
[2023-12-03 20:00] VITALS: BP 143/63; PULSE 80; RESP 18; TEMP 36.9; O2SAT 98
[2023-12-04 01:27] VITALS: BP 134/63; PULSE 81; RESP 16; TEMP 36.1; O2SAT 99
[2023-12-04] MEDS: Levothyroxine Sodium 75 MCG TABLET PO (06:28)
[2023-12-04 07:38] VITALS: BP 132/63; PULSE 77; RESP 18; TEMP 36.3; O2SAT 98
--- NOTE | 2023-12-04 08:55 | HO.PM.IMPN ---
Subjective Subjective Date of Service: 12/04/23 Interval History: no complaints Physical Exam Vital Signs: Vital Signs: Last Vital Signs Temp 97.4 F 12/04/23 07:38 Pulse 77 12/04/23 07:38 Resp 18 12/04/23 07:38 BP 132/63 12/04/23 07:38 Pulse Ox 98 12/04/23 07:38 O2 Del Method Room Air 12/04/23 07:38 BMI result Body Mass Index 20.5 Const: Other: Constitutional : Awake, interactive, not in distress Neck : Normal inspection, Supple Cardiovascular : RRR, no JVP Respiratory : good bilateral air entry, no wheezes or rhonchi Gastrointestinal: soft, lax, Non tender Skin : Warm, Dry Neurological : Alert & oriented to self only but otherwise confused and can get easily distracted, No focal deficit Objective Data Active Medications Acetaminophen (Acetaminophen 325 Mg Tablet) 650 mg PO Q6H PRN PRN Reason: Pain, Mild (Pain Scale 1-3) Last Admin: 11/17/23 20:51 Dose: 650 mg Documented By: CASTFRANKLIN Artificial Tears (Artificial Tears 15 Ml Drops) 2 drop EYE-BOTH Q4H PRN PRN Reason: Dry Eyes Last Admin: 11/23/23 08:30 Dose: 2 drop Documented By: JERUSIUriah Benzocaine (Throat Lozenge, Medicated Lozenge) 1 lozenge MUCOUS MEM Q2H PRN PRN Reason: Sore Throat Clonazepam (Clonazepam 0.125 Mg Tab.Rapdis) 0.25 mg PO TID PRN PRN Reason: Anxiety Stop: 01/15/24 23:59 Last Admin: 12/03/23 20:14 Dose: 0.25 mg Documented By: MATT Enoxaparin Sodium (Enoxaparin Sodium 40 Mg/0.4 Ml Syringe) 40 mg SUBCUT Q24H [facility] Last Admin: 12/03/23 12:32 Dose: 40 mg Documented By: COTEMA Fluticasone Propionate (Fluticasone Propionate Nasal 16 Gm [place]) 2 spray NOSTRIL-B DAILY [facility] Last Admin: 12/03/23 07:28 Dose: Not Given Documented By: ALIVNO Non-Admin Reason: Patient Refused Ketotifen Fumarate (Ketotifen Fumarate 0.025% Oph 5 Ml Drpbtl) 1 drop EYE-RIGHT BID [facility] Last Admin: 12/03/23 20:14 Dose: 1 drop Documented By: MATT Levothyroxine Sodium (Levothyroxine Sodium 75 Mcg Tablet) 75 mcg PO DAILY@0630 [facility] Last Admin: 12/04/23 06:28 Dose: 75 mcg Documented By: MATT Ondansetron HCl (Ondansetron Hcl 4 Mg/2 Ml Vial) 4 mg IVPUSH Q8H PRN PRN Reason: Nausea and Vomiting Trihexyphenidyl HCl (Trihexyphenidyl Hcl 2 Mg Tablet) 1 mg PO BID [facility] Last Admin: 12/03/23 20:13 Dose: 1 mg Documented By: MATT Labs 10/14/23 13:09 10/16/23 05:55 Assessment and Plan (1) Cognitive decline: Status: Acute Plan 73F PMH Hypothyroid, anxiety who presented to ED 10/06/23 with AMS. found to be Covid19 positive at that point with increased weakness and confusion. was awaiting placement in ED and on 10/14/23 became more confused. Cognitive impairment Psych evaluation appreciated, patient does not have capacity to appoint hcp, will need guardian Psych input appreciated, on Clonazepam Metabolic encephalopathy 2/2 acute Hypernatremia on admission, resolved mental status back to baseline as Na level normalized Physical deconditioning PT eval recommending LTC Hx Covid 19 infx recent, repeat is negative Hypothyroidism Levothyroixne red eye artificial tears, eye drops DVT PPx Lovenox The patient will need hospital stay pending guardianship and safe discharge plan Quality Stroke Does the patient have a stroke diagnosis?: No VTE Prior VTE?: No VTE Risk Level:: Medical - moderate - high VTE Device Contraindication: Treatment Not Indicated VTE Drug Contraindication: N/A - Med Ordered
[2023-12-04] MEDS: Ketotifen Fumarate 0.025% Oph 5 ML DRPBTL 1 DROP EYE-RIGHT ×2 (10:32→21:13)
[2023-12-04] MEDS: Fluticasone Propionate Nasal 16 GM SPRAY 2 SPRAY NOSTRIL-B (10:32)
[2023-12-04] MEDS: Trihexyphenidyl HCL 2 MG TABLET 1 MG PO ×2 (10:32→21:11)
[2023-12-04] MEDS: Enoxaparin Sodium 40 MG/0.4 ML SYRINGE SUBCUT (12:16)
[2023-12-04 15:28] VITALS: BP 144/64; PULSE 79; RESP 18; TEMP 36.1; O2SAT 97
[2023-12-04 19:42] VITALS: BP 135/62; PULSE 81; RESP 18; TEMP 36.3; O2SAT 97
[2023-12-05 03:10] VITALS: BP 138/65; PULSE 83; RESP 16; TEMP 36.5; O2SAT 95
[2023-12-05] MEDS: Levothyroxine Sodium 75 MCG TABLET PO (05:40)
[2023-12-05 07:29] VITALS: BP 132/59; PULSE 86; RESP 20; TEMP 36.4; O2SAT 95
--- NOTE | 2023-12-05 08:37 | P.PNIM_ITS ---
Subjective Subjective Date of Service: 12/05/23 Interval History: no complaints Physical Exam 2 Vital Signs: Vital Signs: Last Vital Signs Temp 97.6 F 12/05/23 07:29 Pulse 86 12/05/23 07:29 Resp 20 12/05/23 07:29 BP 132/59 L 12/05/23 07:29 Pulse Ox 95 12/05/23 07:29 O2 Del Method Room Air 12/05/23 07:29 BMI result Body Mass Index 20.5 Const: Other: Constitutional : Awake, interactive, not in distress Neck : Normal inspection, Supple Cardiovascular : RRR, no JVP Respiratory : good bilateral air entry, no wheezes or rhonchi Gastrointestinal: soft, lax, Non tender Skin : Warm, Dry Neurological : Alert & oriented to self only but otherwise confused and can get easily distracted, No focal deficit Objective Data Active Medications Acetaminophen (Acetaminophen 325 Mg Tablet) 650 mg PO Q6H PRN PRN Reason: Pain, Mild (Pain Scale 1-3) Last Admin: 11/17/23 20:51 Dose: 650 mg Documented By: MABLE Artificial Tears (Artificial Tears 15 Ml Drops) 2 drop EYE-BOTH Q4H PRN PRN Reason: Dry Eyes Last Admin: 11/23/23 08:30 Dose: 2 drop Documented By: LEILAUSIUriah Benzocaine (Throat Lozenge, Medicated Lozenge) 1 lozenge MUCOUS MEM Q2H PRN PRN Reason: Sore Throat Clonazepam (Clonazepam 0.125 Mg Tab.Rapdis) 0.25 mg PO TID PRN PRN Reason: Anxiety Stop: 01/15/24 23:59 Last Admin: 12/04/23 21:11 Dose: 0.25 mg Documented By: MATT Enoxaparin Sodium (Enoxaparin Sodium 40 Mg/0.4 Ml Syringe) 40 mg SUBCUT Q24H [facility] Last Admin: 12/04/23 12:16 Dose: 40 mg Documented By: EVERARDO Fluticasone Propionate (Fluticasone Propionate Nasal 16 Gm [place]) 2 spray NOSTRIL-B DAILY [facility] Last Admin: 12/04/23 10:32 Dose: 2 spray Documented By: EVERARDO Ketotifen Fumarate (Ketotifen Fumarate 0.025% Oph 5 Ml Drpbtl) 1 drop EYE-RIGHT BID [facility] Last Admin: 12/04/23 21:13 Dose: 1 drop Documented By: MATT Levothyroxine Sodium (Levothyroxine Sodium 75 Mcg Tablet) 75 mcg PO DAILY@0630 [facility] Last Admin: 12/05/23 05:40 Dose: 75 mcg Documented By: MATT Ondansetron HCl (Ondansetron Hcl 4 Mg/2 Ml Vial) 4 mg IVPUSH Q8H PRN PRN Reason: Nausea and Vomiting Trihexyphenidyl HCl (Trihexyphenidyl Hcl 2 Mg Tablet) 1 mg PO BID [facility] Last Admin: 12/04/23 21:11 Dose: 1 mg Documented By: MATT Labs 10/14/23 13:09 10/16/23 05:55 Assessment and Plan (1) Cognitive decline: Status: Acute Plan 73F PMH Hypothyroid, anxiety who presented to ED 10/06/23 with AMS. found to be Covid19 positive at that point with increased weakness and confusion. was awaiting placement in ED and on 10/14/23 became more confused. Cognitive impairment Psych evaluation appreciated, patient does not have capacity to appoint hcp, will need guardian Psych input appreciated, on Clonazepam Metabolic encephalopathy 2/2 acute Hypernatremia on admission, resolved mental status back to baseline as Na level normalized Physical deconditioning PT eval recommending LTC Hx Covid 19 infx recent, repeat is negative Hypothyroidism Levothyroixne red eye artificial tears, eye drops DVT PPx Lovenox The patient will need hospital stay pending guardianship and safe discharge plan Quality Stroke Does the patient have a stroke diagnosis?: No VTE Prior VTE?: No VTE Risk Level:: Medical - moderate - high VTE Device Contraindication: Treatment Not Indicated VTE Drug Contraindication: N/A - Med Ordered
[2023-12-05] MEDS: Fluticasone Propionate Nasal 16 GM SPRAY 2 SPRAY NOSTRIL-B (09:08)
[2023-12-05] MEDS: Trihexyphenidyl HCL 2 MG TABLET 1 MG PO ×2 (09:08→20:29)
[2023-12-05] MEDS: Ketotifen Fumarate 0.025% Oph 5 ML DRPBTL 1 DROP EYE-RIGHT ×2 (09:08→20:30)
[2023-12-05] MEDS: Enoxaparin Sodium 40 MG/0.4 ML SYRINGE SUBCUT (12:40)
[2023-12-05 16:00] VITALS: BP 161/72; PULSE 91; RESP 18; TEMP 37.4; O2SAT 97
[2023-12-05 19:35] VITALS: BP 127/62; PULSE 96; RESP 18; TEMP 37.3; O2SAT 96
[2023-12-06 04:00] VITALS: BP 137/63; PULSE 82; RESP 16; TEMP 37; O2SAT 94
[2023-12-06] MEDS: Levothyroxine Sodium 75 MCG TABLET PO (06:33)
[2023-12-06 08:00] VITALS: BP 132/60; PULSE 85; RESP 18; TEMP 36.9; O2SAT 92
[2023-12-06] MEDS: Ketotifen Fumarate 0.025% Oph 5 ML DRPBTL 1 DROP EYE-RIGHT ×2 (08:48→20:05)
[2023-12-06] MEDS: Fluticasone Propionate Nasal 16 GM SPRAY 2 SPRAY NOSTRIL-B (08:49)
[2023-12-06] MEDS: Trihexyphenidyl HCL 2 MG TABLET 1 MG PO ×2 (08:49→19:59)
--- NOTE | 2023-12-06 08:58 | HO.PM.IMPN ---
Subjective Subjective Date of Service: 12/06/23 Review of Systems Review of Systems: Yes all other systems are reviewed and are negative Physical Exam Vital Signs: Vital Signs: Last Vital Signs Temp 98.5 F 12/06/23 08:00 Pulse 85 12/06/23 08:00 Resp 18 12/06/23 08:00 BP 132/60 12/06/23 08:00 Pulse Ox 92 12/06/23 08:00 O2 Del Method Room Air 12/06/23 08:00 BMI result Body Mass Index 20.5 Const: Other: Constitutional : Awake, interactive, not in distress Neck : Normal inspection, Supple Cardiovascular : RRR, no JVP Respiratory : good bilateral air entry, no wheezes or rhonchi Gastrointestinal: soft, lax, Non tender Skin : Warm, Dry Neurological : Alert & oriented to self only but otherwise confused and can get easily distracted, No focal deficit Objective Data Active Medications Acetaminophen (Acetaminophen 325 Mg Tablet) 650 mg PO Q6H PRN PRN Reason: Pain, Mild (Pain Scale 1-3) Last Admin: 11/17/23 20:51 Dose: 650 mg Documented By: MABLE Artificial Tears (Artificial Tears 15 Ml Drops) 2 drop EYE-BOTH Q4H PRN PRN Reason: Dry Eyes Last Admin: 11/23/23 08:30 Dose: 2 drop Documented By: LYNDA Benzocaine (Throat Lozenge, Medicated Lozenge) 1 lozenge MUCOUS MEM Q2H PRN PRN Reason: Sore Throat Clonazepam (Clonazepam 0.125 Mg Tab.Rapdis) 0.25 mg PO TID [facility] Stop: 01/15/24 23:59 Last Admin: 12/06/23 08:49 Dose: 0.25 mg Documented By: EVERARDO Enoxaparin Sodium (Enoxaparin Sodium 40 Mg/0.4 Ml Syringe) 40 mg SUBCUT Q24H [facility] Last Admin: 12/05/23 12:40 Dose: 40 mg Documented By: EVERARDO Fluticasone Propionate (Fluticasone Propionate Nasal 16 Gm [place]) 2 spray NOSTRIL-B DAILY [facility] Last Admin: 12/06/23 08:49 Dose: 2 spray Documented By: EVERARDO Ketotifen Fumarate (Ketotifen Fumarate 0.025% Oph 5 Ml Drpbtl) 1 drop EYE-RIGHT BID [facility] Last Admin: 12/06/23 08:48 Dose: 1 drop Documented By: EVERARDO Levothyroxine Sodium (Levothyroxine Sodium 75 Mcg Tablet) 75 mcg PO DAILY@0630 [facility] Last Admin: 12/06/23 06:33 Dose: 75 mcg Documented By: MATT Ondansetron HCl (Ondansetron Hcl 4 Mg/2 Ml Vial) 4 mg IVPUSH Q8H PRN PRN Reason: Nausea and Vomiting Trihexyphenidyl HCl (Trihexyphenidyl Hcl 2 Mg Tablet) 1 mg PO BID [facility] Last Admin: 12/06/23 08:49 Dose: 1 mg Documented By: EVERARDO Labs 10/14/23 13:09 10/16/23 05:55 Assessment and Plan (1) Cognitive decline: Status: Acute Plan 73F PMH Hypothyroid, anxiety who presented to ED 10/06/23 with AMS. found to be Covid19 positive at that point with increased weakness and confusion. was awaiting placement in ED and on 10/14/23 became more confused. Cognitive impairment Psych evaluation appreciated, patient does not have capacity to appoint hcp, will need guardian Psych input appreciated, on Clonazepam Metabolic encephalopathy 2/2 acute Hypernatremia on admission, resolved mental status back to baseline as Na level normalized Physical deconditioning PT eval recommending LTC Hx Covid 19 infx recent, repeat is negative Hypothyroidism Levothyroixne red eye artificial tears, eye drops DVT PPx Lovenox The patient will need hospital stay pending guardianship and safe discharge plan Quality Stroke Does the patient have a stroke diagnosis?: No VTE Prior VTE?: No VTE Risk Level:: Medical - moderate - high VTE Device Contraindication: Treatment Not Indicated VTE Drug Contraindication: N/A - Med Ordered
[2023-12-06] MEDS: Enoxaparin Sodium 40 MG/0.4 ML SYRINGE SUBCUT (13:06)
[2023-12-06 15:18] VITALS: BP 127/58; PULSE 100; RESP 18; TEMP 37.2; O2SAT 95
[2023-12-06 20:00] VITALS: BP 132/61; PULSE 95; RESP 18; TEMP 37; O2SAT 97
[2023-12-07 03:58] VITALS: BP 138/65; PULSE 86; RESP 18; TEMP 36.6; O2SAT 96
[2023-12-07] MEDS: Levothyroxine Sodium 75 MCG TABLET PO (05:50)
[2023-12-07 07:29] VITALS: BP 118/55; PULSE 84; RESP 16; TEMP 36.5; O2SAT 92
[2023-12-07] MEDS: Trihexyphenidyl HCL 2 MG TABLET 1 MG PO ×2 (08:00→20:50)
[2023-12-07] MEDS: Fluticasone Propionate Nasal 16 GM SPRAY 2 SPRAY NOSTRIL-B (08:03)
[2023-12-07] MEDS: Ketotifen Fumarate 0.025% Oph 5 ML DRPBTL 1 DROP EYE-RIGHT ×2 (08:04→20:50)
[2023-12-07] MEDS: Artificial Tears 15 ML DROPS 2 DROP EYE-BOTH (08:04)
--- NOTE | 2023-12-07 08:19 | HO.PM.IMPN ---
Subjective Subjective Date of Service: 12/07/23 Review of Systems Review of Systems: Yes all other systems are reviewed and are negative Physical Exam Vital Signs: Vital Signs: Last Vital Signs Temp 97.7 F 12/07/23 07:29 Pulse 84 12/07/23 07:29 Resp 16 12/07/23 07:29 BP 118/55 L 12/07/23 07:29 Pulse Ox 92 12/07/23 07:29 O2 Del Method Room Air 12/07/23 07:29 BMI result Body Mass Index 20.5 Const: Other: Constitutional : Awake, interactive, not in distress Neck : Normal inspection, Supple Cardiovascular : RRR, no JVP Respiratory : good bilateral air entry, no wheezes or rhonchi Gastrointestinal: soft, lax, Non tender Skin : Warm, Dry Neurological : Alert & oriented to self only but otherwise confused and can get easily distracted, No focal deficit Objective Data Active Medications Acetaminophen (Acetaminophen 325 Mg Tablet) 650 mg PO Q6H PRN PRN Reason: Pain, Mild (Pain Scale 1-3) Last Admin: 11/17/23 20:51 Dose: 650 mg Documented By: MABLE Artificial Tears (Artificial Tears 15 Ml Drops) 2 drop EYE-BOTH Q4H PRN PRN Reason: Dry Eyes Last Admin: 12/07/23 08:04 Dose: 2 drop Documented By: DALIA Benzocaine (Throat Lozenge, Medicated Lozenge) 1 lozenge MUCOUS MEM Q2H PRN PRN Reason: Sore Throat Clonazepam (Clonazepam 0.125 Mg Tab.Rapdis) 0.25 mg PO TID [facility] Stop: 01/15/24 23:59 Last Admin: 12/07/23 07:59 Dose: 0.25 mg Documented By: DALIA Enoxaparin Sodium (Enoxaparin Sodium 40 Mg/0.4 Ml Syringe) 40 mg SUBCUT Q24H [facility] Last Admin: 12/06/23 13:06 Dose: 40 mg Documented By: EVERARDO Fluticasone Propionate (Fluticasone Propionate Nasal 16 Gm [place]) 2 spray NOSTRIL-B DAILY [facility] Last Admin: 12/07/23 08:03 Dose: 2 spray Documented By: DALIA Ketotifen Fumarate (Ketotifen Fumarate 0.025% Oph 5 Ml Drpbtl) 1 drop EYE-RIGHT BID [facility] Last Admin: 12/07/23 08:04 Dose: 1 drop Documented By: DALIA Levothyroxine Sodium (Levothyroxine Sodium 75 Mcg Tablet) 75 mcg PO DAILY@0630 [facility] Last Admin: 12/07/23 05:50 Dose: 75 mcg Documented By: COTEMA Ondansetron HCl (Ondansetron Hcl 4 Mg/2 Ml Vial) 4 mg IVPUSH Q8H PRN PRN Reason: Nausea and Vomiting Trihexyphenidyl HCl (Trihexyphenidyl Hcl 2 Mg Tablet) 1 mg PO BID [facility] Last Admin: 12/07/23 08:00 Dose: 1 mg Documented By: DALIA Labs 10/14/23 13:09 10/16/23 05:55 Assessment and Plan (1) Cognitive decline: Status: Acute Plan 73F PMH Hypothyroid, anxiety who presented to ED 10/06/23 with AMS. found to be Covid19 positive at that point with increased weakness and confusion. was awaiting placement in ED and on 10/14/23 became more confused. Cognitive impairment Psych evaluation appreciated, patient does not have capacity to appoint hcp, will need guardian Psych input appreciated, on Clonazepam Metabolic encephalopathy 2/2 acute Hypernatremia on admission, resolved mental status back to baseline as Na level normalized Physical deconditioning PT eval recommending LTC Hx Covid 19 infx recent, repeat is negative Hypothyroidism Levothyroixne red eye artificial tears, eye drops DVT PPx Lovenox The patient will need hospital stay pending guardianship and safe discharge plan Quality Stroke Does the patient have a stroke diagnosis?: No VTE Prior VTE?: No VTE Risk Level:: Medical - moderate - high VTE Device Contraindication: Treatment Not Indicated VTE Drug Contraindication: N/A - Med Ordered
[2023-12-07] MEDS: Enoxaparin Sodium 40 MG/0.4 ML SYRINGE SUBCUT (14:17)
[2023-12-07 15:11] VITALS: BP 125/57; PULSE 91; RESP 16; TEMP 36.6; O2SAT 96
[2023-12-07 19:41] VITALS: BP 127/59; PULSE 95; RESP 16; TEMP 36.1; O2SAT 96
[2023-12-08 02:36] VITALS: BP 130/60; PULSE 91; RESP 16; TEMP 37.3; O2SAT 94
[2023-12-08] MEDS: Levothyroxine Sodium 75 MCG TABLET PO (05:41)
[2023-12-08 07:24] VITALS: BP 144/63; PULSE 90; RESP 18; TEMP 36.5; O2SAT 95
[2023-12-08] MEDS: Trihexyphenidyl HCL 2 MG TABLET 1 MG PO ×2 (09:19→20:20)
[2023-12-08] MEDS: Ketotifen Fumarate 0.025% Oph 5 ML DRPBTL 1 DROP EYE-RIGHT ×2 (09:19→20:21)
[2023-12-08] MEDS: Fluticasone Propionate Nasal 16 GM SPRAY 2 SPRAY NOSTRIL-B (09:19)
--- NOTE | 2023-12-08 10:40 | HO.PM.IMPN ---
Subjective Subjective Date of Service: 12/08/23 Interval History: Seen and evaluated Alert, sweetly confused Denies complaints Review of Systems Review of Systems: Yes all other systems are reviewed and are negative Physical Exam Vital Signs: Vital Signs: Last Vital Signs Temp 97.7 F 12/08/23 07:24 Pulse 90 12/08/23 07:24 Resp 18 12/08/23 07:24 BP 144/63 H 12/08/23 07:24 Pulse Ox 95 12/08/23 07:24 O2 Del Method Room Air 12/08/23 07:24 BMI result Body Mass Index 20.5 Const: Other: Constitutional : Awake, interactive, not in distress Neck : Normal inspection, Supple Cardiovascular : RRR, no JVP Respiratory : good bilateral air entry, no wheezes or rhonchi Gastrointestinal: soft, lax, Non tender Skin : Warm, Dry Neurological : Alert & oriented to self only but otherwise confused and can get easily distracted, No focal deficit Objective Data Active Medications Acetaminophen (Acetaminophen 325 Mg Tablet) 650 mg PO Q6H PRN PRN Reason: Pain, Mild (Pain Scale 1-3) Last Admin: 11/17/23 20:51 Dose: 650 mg Documented By: MABLE Artificial Tears (Artificial Tears 15 Ml Drops) 2 drop EYE-BOTH Q4H PRN PRN Reason: Dry Eyes Last Admin: 12/07/23 08:04 Dose: 2 drop Documented By: DALIA Benzocaine (Throat Lozenge, Medicated Lozenge) 1 lozenge MUCOUS MEM Q2H PRN PRN Reason: Sore Throat Clonazepam (Clonazepam 0.125 Mg Tab.Rapdis) 0.25 mg PO TID [facility] Stop: 01/15/24 23:59 Last Admin: 12/08/23 09:19 Dose: 0.25 mg Documented By: KAREN Enoxaparin Sodium (Enoxaparin Sodium 40 Mg/0.4 Ml Syringe) 40 mg SUBCUT Q24H [facility] Last Admin: 12/07/23 14:17 Dose: 40 mg Documented By: DALIA Fluticasone Propionate (Fluticasone Propionate Nasal 16 Gm [place]) 2 spray NOSTRIL-B DAILY [facility] Last Admin: 12/08/23 09:19 Dose: 2 spray Documented By: KAREN Ketotifen Fumarate (Ketotifen Fumarate 0.025% Oph 5 Ml Drpbtl) 1 drop EYE-RIGHT BID [facility] Last Admin: 12/08/23 09:19 Dose: 1 drop Documented By: KAREN Levothyroxine Sodium (Levothyroxine Sodium 75 Mcg Tablet) 75 mcg PO DAILY@0630 [facility] Last Admin: 12/08/23 05:41 Dose: 75 mcg Documented By: ABHINAV Ondansetron HCl (Ondansetron Hcl 4 Mg/2 Ml Vial) 4 mg IVPUSH Q8H PRN PRN Reason: Nausea and Vomiting Trihexyphenidyl HCl (Trihexyphenidyl Hcl 2 Mg Tablet) 1 mg PO BID [facility] Last Admin: 12/08/23 09:19 Dose: 1 mg Documented By: KAREN Labs 10/14/23 13:09 10/16/23 05:55 Assessment and Plan (1) Cognitive decline: Status: Acute Plan 73F PMH Hypothyroid, anxiety who presented to ED 10/06/23 with AMS. found to be Covid19 positive at that point with increased weakness and confusion. was awaiting placement in ED and on 10/14/23 became more confused. Cognitive impairment Psych evaluation appreciated, patient does not have capacity to appoint hcp, will need guardian Psych input appreciated, on Clonazepam Metabolic encephalopathy 2/2 acute Hypernatremia on admission, resolved mental status back to baseline as Na level normalized Physical deconditioning PT eval recommending LTC Hx Covid 19 infx recent, repeat is negative Hypothyroidism Levothyroixne red eye artificial tears, eye drops DVT PPx Lovenox The patient will need hospital stay pending guardianship and safe discharge plan Quality Stroke Does the patient have a stroke diagnosis?: No VTE Prior VTE?: No VTE Risk Level:: Medical - moderate - high VTE Device Contraindication: Treatment Not Indicated VTE Drug Contraindication: N/A - Med Ordered
--- NOTE | 2023-12-08 11:52 | MHC.CM.PN ---
EMR reviewed. Per FS, patient has a few hundred thousand in a bank account accessible to guardian. Guardian has asked that CM begin LTC search for private pay. Referrals placed. CM will continue to follow.
[2023-12-08] MEDS: Enoxaparin Sodium 40 MG/0.4 ML SYRINGE SUBCUT (13:58)
[2023-12-08 15:19] VITALS: BP 120/58; PULSE 94; RESP 18; TEMP 36.3; O2SAT 97
[2023-12-08 19:34] VITALS: BP 135/62; PULSE 93; RESP 17; TEMP 36.2; O2SAT 97
[2023-12-09 03:23] VITALS: BP 121/58; PULSE 78; RESP 18; TEMP 36.6; O2SAT 96
[2023-12-09] MEDS: Levothyroxine Sodium 75 MCG TABLET PO (06:04)
[2023-12-09 07:28] VITALS: BP 133/62; PULSE 80; RESP 18; TEMP 36.2; O2SAT 94
[2023-12-09] MEDS: Trihexyphenidyl HCL 2 MG TABLET 1 MG PO (07:44)
[2023-12-09] MEDS: Ketotifen Fumarate 0.025% Oph 5 ML DRPBTL 1 DROP EYE-RIGHT (07:44)
[2023-12-09] MEDS: Fluticasone Propionate Nasal 16 GM SPRAY 2 SPRAY NOSTRIL-B (07:44)
--- NOTE | 2023-12-09 11:15 | P.PNIM_ITS ---
Subjective Subjective Date of Service: 12/09/23 Interval History: Seen and evaluated Alert, sweetly confused Denies complaints Review of Systems No fever, chills No chest pain, palpitation No shortness of breath or coughing No abdominal pain, nausea or vomiting No urinary symptoms Physical Exam 2 Vital Signs: Vital Signs: Last Vital Signs Temp 97.1 F 12/09/23 07:28 Pulse 80 12/09/23 07:28 Resp 18 12/09/23 07:28 BP 133/62 12/09/23 07:28 Pulse Ox 94 12/09/23 07:28 O2 Del Method Room Air 12/09/23 07:28 BMI result Body Mass Index 20.5 Const: Other: Constitutional : Awake, interactive, not in distress Neck : Normal inspection, Supple Cardiovascular : RRR, no JVP Respiratory : good bilateral air entry, no wheezes or rhonchi Gastrointestinal: soft, lax, Non tender Skin : Warm, Dry Neurological : Alert & oriented to self only but otherwise confused and can get easily distracted, No focal deficit Objective Data Active Medications Acetaminophen (Acetaminophen 325 Mg Tablet) 650 mg PO Q6H PRN PRN Reason: Pain, Mild (Pain Scale 1-3) Last Admin: 11/17/23 20:51 Dose: 650 mg Documented By: MABLE Artificial Tears (Artificial Tears 15 Ml Drops) 2 drop EYE-BOTH Q4H PRN PRN Reason: Dry Eyes Last Admin: 12/07/23 08:04 Dose: 2 drop Documented By: DALIA Benzocaine (Throat Lozenge, Medicated Lozenge) 1 lozenge MUCOUS MEM Q2H PRN PRN Reason: Sore Throat Clonazepam (Clonazepam 0.125 Mg Tab.Rapdis) 0.25 mg PO TID [facility] Stop: 01/15/24 23:59 Last Admin: 12/09/23 07:44 Dose: 0.25 mg Documented By: KAREN Enoxaparin Sodium (Enoxaparin Sodium 40 Mg/0.4 Ml Syringe) 40 mg SUBCUT Q24H [facility] Last Admin: 12/08/23 13:58 Dose: 40 mg Documented By: KAREN Fluticasone Propionate (Fluticasone Propionate Nasal 16 Gm [place]) 2 spray NOSTRIL-B DAILY [facility] Last Admin: 12/09/23 07:44 Dose: 2 spray Documented By: KAREN Ketotifen Fumarate (Ketotifen Fumarate 0.025% Oph 5 Ml Drpbtl) 1 drop EYE-RIGHT BID [facility] Last Admin: 12/09/23 07:44 Dose: 1 drop Documented By: KAREN Levothyroxine Sodium (Levothyroxine Sodium 75 Mcg Tablet) 75 mcg PO DAILY@0630 [facility] Last Admin: 12/09/23 06:04 Dose: 75 mcg Documented By: SATYA Ondansetron HCl (Ondansetron Hcl 4 Mg/2 Ml Vial) 4 mg IVPUSH Q8H PRN PRN Reason: Nausea and Vomiting Trihexyphenidyl HCl (Trihexyphenidyl Hcl 2 Mg Tablet) 1 mg PO BID [facility] Last Admin: 12/09/23 07:44 Dose: 1 mg Documented By: KAREN Labs 10/14/23 13:09 10/16/23 05:55 Assessment and Plan (1) Cognitive decline: Status: Acute Plan 73F PMH Hypothyroid, anxiety who presented to ED 10/06/23 with AMS. found to be Covid19 positive at that point with increased weakness and confusion. was awaiting placement in ED and on 10/14/23 became more confused. Cognitive impairment Psych evaluation appreciated, patient does not have capacity to appoint hcp, will need guardian Continue Clonazepam Metabolic encephalopathy 2/2 acute Hypernatremia on admission, resolved mental status back to baseline as Na level normalized Physical deconditioning PT eval recommending LTC Hx Covid 19 infx recent, repeat is negative Hypothyroidism Levothyroixne red eye artificial tears, eye drops DVT PPx Lovenox The patient will need hospital stay pending guardianship and safe discharge plan Quality Stroke Does the patient have a stroke diagnosis?: No VTE Prior VTE?: No VTE Risk Level:: Medical - moderate - high VTE Device Contraindication: Treatment Not Indicated VTE Drug Contraindication: N/A - Med Ordered
--- NOTE | 2023-12-09 12:54 | MHC.CM.PN ---
LTC bed offered and accepted by guardian Farzana at [facility]. Guardian has coordinated w/ facility re: payment. BLS transportation scheduled for 230pm. IMM verbally delivered to guardian. Copy faxed w/ dc summary to [phone].
--- NOTE | 2023-12-09 13:32 | PM.DS ---
DS: Providers Provider Date of Service: 12/09/23 Date of admission: 10/15/23 10:38 Primary care physician: Crissy Morel MD Consults: 10/08/23 15:37 Consult to Psychiatry Stat Consulting Provider: Psych Covering Reason for consultation: Dementia. ?Capacity Has provider been notified: No 10/19/23 11:06 Consult to Psychiatry Routine Consulting Provider: Psych Covering Reason for consultation: eval Capacity to choose Health care proxy. 11/11/23 11:35 Consult to Care Team Routine Comment: Reason for consultation: Evaluation for [facility]-psych placement. 11/11/23 14:41 Consult to Psychiatry Routine Consulting Provider: Psych Covering Reason for consultation: delusions, pressure speech, for eval and medications advice DS: Diagnosis Discharge Diagnosis (1) Cognitive decline: Status: Acute (2) Acute hypernatremia: Status: Acute (3) Delirium: Status: Acute DS: Summary Hospital Course Hospital Course: The patient had prolonged hospital stay. for full details please return to EMR. Admission note HPI A 73 years old PMH w Hypothyroid, anxiety who presented to ED with AMS. found to be Covid19 positive at that point with increase weakness and confusion. Seen by psychiatry in ED who deemed her not having capacity and as she does not have HCP. Filing for Guardianship at this point but is is unsafe for her to be discharged back home. her significant other lacks capacity to take care of her at home and that is why after discussing with [employer] and Case workers decision was made to keep her in house until her guardianship completed. Hospital course # Cognitive impairment The patient was evaluated by Psychiatry team who think that the patient does not have capacity to appoint hcp. A guardian was appointed after long wait and arrangements made for her discharge to nursing facility. Psychiatry team recommended to continue Clonazepam tid. # Metabolic encephalopathy 2/2 acute Hypernatremia on admission, resolved Treated with IV fluids with good response as mental status back to baseline as Na level normalized. her oral intake improved and her repeat labs were within normal. # PHysical deconditioning. evaluated by PT and was engaged in therapy and walking in west with nursing staff # red eye artificial tears, eye drops with good response. Time Attestation Discharge coordination time: Greater than 30 minutes Quality: Safe Use of Opioids Does Pt have an Active Cancer Diagnosis on the Problem List?: No Quality: Stroke Does the patient have a stroke diagnosis?: No Physical Exam Vital Signs: Vital Signs: Last Vital Signs Temp 97.1 F 12/09/23 07:28 Pulse 80 12/09/23 07:28 Resp 18 12/09/23 07:28 BP 133/62 12/09/23 07:28 Pulse Ox 94 12/09/23 07:28 O2 Del Method Room Air 12/09/23 07:28 BMI result Body Mass Index 20.5 Const: Other: Constitutional : Awake, interactive, not in distress Neck : Normal inspection, Supple Cardiovascular : RRR, no JVP Respiratory : good bilateral air entry, no wheezes or rhonchi Gastrointestinal: soft, lax, Non tender Skin : Warm, Dry Neurological : Alert & oriented to self and place. can get easily distracted, No focal deficit DS: Data Imaging CT scan - head: Radiologist's impression: ITS Impressions Cervical Spine CT 10/08/23 14:22 IMPRESSION: 1. No acute intracranial process seen. 2. There is no acute fracture, dislocation or subluxation in cervical spine. There are degenerative disc changes C3-C4 and C4-C5 disc levels with ventral and posterior spondylosis. Head CT 10/08/23 14:22 IMPRESSION: 1. No acute intracranial process seen. 2. There is no acute fracture, dislocation or subluxation in cervical spine. There are degenerative disc changes C3-C4 and C4-C5 disc levels with ventral and posterior spondylosis. Chest X-Ray 10/08/23 16:00 IMPRESSION: 1. Increased interstitial markings in both lungs without acute consolidation or pleural effusion. 2. Small left upper lobe nodules. Recommend CT correlation. Discharge Plan Discharge Anticipated Discharge Date/Time: 12/09/23 13:08 Patient Disposition: Xfer SNF Discharge Diagnosis: Cognitive decline Referrals: Physician,Unknown J [Physician] - 1 Week Crissy Morel MD [Primary Care Provider] - 11/15/23 9:45 am Discharge Medications: Continued levothyroxine 75 mcg tablet 75 mcg PO DAILY trihexyphenidyl 2 mg tablet 1 mg PO BID fluticasone propionate 50 mcg/actuation spray,suspension 2 spray intranasal DAILY Changed clonazepam 0.5 mg tablet 0.25 mg PO TID Qty: 45 0RF Discharge Orders: Discharge Order (Routine); Ordered 12/09/23 Ordered By: Aline Mendez Diet: Advance to usual diet Activity on Discharge: As tolerated Stand Alone Forms: Patient Portal Discharge page Care Plan Goals: Read below Health Concerns: Read below Plan of Treatment: Read below Assessment: Continue your medications as prescribed Discharge Date/Time: 12/09/23 14:51
[2023-12-09] MEDS: Enoxaparin Sodium 40 MG/0.4 ML SYRINGE SUBCUT (13:54)
== END 2023-12-09 14:51 | disposition skilled nursing facility (03) | DRG 640 ==
LOC: HO.ED 10-09 21:34 → HO.EDOVER 10-14 13:16 → HO.S3 10-14 14:47
PROVIDERS: Physician Assistant; Admitting Provider Student in an Organized Health Care Education/Training Program; Emergency Provider Emergency Medicine Emergency Medical Services; PCP Internal Medicine; Visit Provider Student in an Organized Health Care Education/Training Program
DX: E87.0 Hyperosmolality and hypernatremia (principal); G93.41 Metabolic encephalopathy; F03.90 Unspecified dementia, unspecified severity, without behavioral disturbance, psychotic disturbance, mood disturbance, and anxiety; E03.9 Hypothyroidism, unspecified; R41.89 Other symptoms and signs involving cognitive functions and awareness; Z20.822 Contact with and (suspected) exposure to COVID-19; Z75.1 Person awaiting admission to adequate facility elsewhere; Z86.16 Personal history of COVID-19; Z79.51 Long term (current) use of inhaled steroids; Z79.890 Hormone replacement therapy; Z79.899 Other long term (current) drug therapy
CPT/HCPCS: 36415; 70450; 71045; 72125; 80048; 80076; 81001; 82140; 82550; 82947; 83735; 84484; 85025; 85027; 85610; 87502; 87635; 93005; 97162; 99221; 99285; J1200; J1650; J2359; S9485

== ENCOUNTER → 2023-10-08 12:47 | Outpatient (BNV) | payer MEDICARE, SELFPAY | PROVIDERS: Emergency Provider Emergency Medicine Emergency Medical Services; Visit Provider Internal Medicine Cardiovascular Disease | DX: R41.82 Altered mental status, unspecified (principal) | CPT/HCPCS: 93010 ==

== ENCOUNTER → 2023-10-08 13:46 | Outpatient (BNV) | payer MEDICARE, SELFPAY | PROVIDERS: Emergency Provider Emergency Medicine Emergency Medical Services; Visit Provider Psychiatry & Neurology Psychiatry | DX: F03.90 Unspecified dementia, unspecified severity, without behavioral disturbance, psychotic disturbance, mood disturbance, and anxiety (principal); R41.89 Other symptoms and signs involving cognitive functions and awareness | CPT/HCPCS: 99232; 99252; 99282 ==

== ENCOUNTER → 2023-10-14 13:03 | Outpatient (BNV) | payer MEDICARE, SELFPAY | PROVIDERS: Admitting Provider Student in an Organized Health Care Education/Training Program; Emergency Provider Emergency Medicine Emergency Medical Services; Visit Provider Student in an Organized Health Care Education/Training Program | DX: R41.89 Other symptoms and signs involving cognitive functions and awareness (principal); E87.0 Hyperosmolality and hypernatremia; R41.0 Disorientation, unspecified | CPT/HCPCS: 99222; 99231; 99232; 99238 ==